=== PATIENT | female | born 1940 | race Caucasian/White ===

== ENCOUNTER 2016-08-04 19:06 | Inpatient (IN) ==
[2016-08-04] MEDS ORDERED: ASPIRIN 325 MG TABLET PO STA (20:24)
[2016-08-04] MEDS ORDERED: ONDANSETRON 4 MG/2 ML VIAL IV STA (20:24)
[2016-08-04] MEDS ORDERED: methylPREDNISolone SOD SUC 125 MG/2 ML VIAL IV STA (20:35)
[2016-08-04] MEDS ORDERED: NITROGLYCERIN 2% OINT 1 INCH/GM PACK TOP STA (20:35)
[2016-08-04] MEDS ORDERED: FUROSEMIDE 100 MG/10 ML VIAL IV STA (20:35)
--- NOTE | 2016-08-04 20:41 | EKG Report ---
Stationary ECG Study [facility] ER Test Date: 08/04/2016 7:35:05 PM Pat Name: NESHA GRAVES Department: Room: Gender: F Spray Technician: Roland : 1940 Requested by: Hayden Mccauley Order Number: [id number] Reading MD: JANAK MCQUEEN Intervals [place] Rate: 72 P: 999 IA: 0 QRS: 40 QRSD: 89 T: -86 QT: 377 QTc: 401 Interpretive Statements ATRIAL FIBRILLATION ELECTRONIC VENTRICULAR PACEMAKER Electronically Signed On 08-08-16 16:14:00 CDT by JANAK MCQUEEN [email or web address]
[2016-08-04 20:47] LABS: Basophils # 0.1 10*3/uL (0.0-0.2); Basophils % 0.3 % (0.0-0.8); Eosinophils # 0.2 10*3/uL (0.0-0.87); Eosinophils % 1.4 % (0.00-10.9); Hematocrit 32.6 VOL% (35.7-47.0); Immature Granulocytes % 0.7 %; Immature Granulocytes Absolute 0.11 #; Lymphocytes # 3.1 10*3/uL (1.4-4.0); Lymphocytes % 18.5 % (21.3-54.2); Mean Corpuscular HGB Conc 29.1 GM/DL (32-36); Mean Corpuscular Hemoglobin 24 PG (27-34); Mean Corpuscular Volume 81.7 FL (87-102); Mean Platelet Volume 11.3 FL (9.6-12.0); Monocytes # 1.3 10*3/uL (0.11-0.8); Monocytes % 7.7 % (1.7-12.7); Neutrophils # 11.9 10*3/uL (1.4-7.4); Neutrophils % 71.4 % (38.7-73.9); Platelet Count 234 T/CUMM (130-400); Red Blood Count 3.99 MC/CUMM (3.8-5.5); Red Cell Distribution Width 18.4 % (9.3-17.3); White Blood Count 16.7 T/CUMM (4-12)
[2016-08-04 20:53] LABS: Hemoglobin 9.7 GM/DL (12.0-16.0); INR 1.4; PT Patient Result 14.6 SECS
[2016-08-04] MEDS ORDERED: ALBUTEROL 2.5 MG/3 ML NEB RESP TX SCH (21:00)
[2016-08-04 21:04] LABS: Troponin I Only < 0.015 NG/ML (0.00-0.045)
[2016-08-04 21:08] LABS: Allen Test Positive
[2016-08-04 21:12] LABS: ABG Base Excess 13.3 MMOL/L (-2.5-2.5); ABG HCO3 37.1 MMOL/L (20-26); ABG Oxygen Saturation 97.2 % (95-100); ABG PCO2 65.1 MM HG (35-48); ABG PH 7.404 (7.35-7.45); ABG TCO2 37.2 MMOL/L (23-27)
--- NOTE | 2016-08-04 21:18 | XRay Report ---
Referring Physician: Hayden Brambila Exam: XR chest 1V portable Date: August 04, 2016 at 8:52 PM Reason: Shortness of breath Comparison: Chest 2 views June 28, 2016 Findings: The cardiac silhouette is again mildly enlarged, and a cardiac pacing device is in place. There is also a large hiatal hernia. Mild scattered hazy opacities are seen within the mid and lower lung zones bilaterally. This could represent pulmonary edema and/or pneumonia. A calcified granuloma is also suspected within the right midlung zone. No pneumothorax is identified. The osseous structures appear stable. Impression: 1. Mild cardiomegaly. 2. Large hiatal hernia. 3. There are mild scattered hazy opacities within the lower mid and lower lung zones, mainly on the right. This could represent pulmonary edema and/or pneumonia. PROCEDURE INTERPRETED AT [facility] DEPARTMENT OF RADIOLOGY Final Report Signed by: Dr. Anderson Dumont
[2016-08-04 21:23] LABS: Alanine Aminotransferase 15 U/L (13-56); Albumin 2.7 G/DL (3.4-5.0); Alkaline Phosphatase 97 U/L (45-117); Aspartate Amino Transferase 12 U/L (0-37); Bilirubin,Total < 0.39 MG/DL (0.2-1.0); Blood Urea Nitrogen 13 MG/DL (7-18); Calcium 8.5 MG/DL (8.5-10.1); Glucose 111 MG/DL (74-106); Osmolality,Calculated 279.4 MOS/KG (273-304); Potassium 3.6 MMOL/L (3.5-5.1); Sodium 140 MMOL/L (136-145); Total Protein 6.4 G/DL (6.4-8.3)
[2016-08-04] MEDS ORDERED: ENOXAPARIN 100 MG/ML SYRINGE SUBCUT STA (21:23)
--- NOTE | 2016-08-04 22:00 | Emergency Department Note ---
Pietro Gray [place], am scribing for, and in the presence of, Hayden Brambila MD 20:09. Patty Gray Charles R, MD, personally performed the services described in this documentation, ascribed by Alek Westbrook in my presence, and it is both accurate and complete . Arrival - Arrival Chief Complaint: Shortness of Breath Stated Complaint: SOB ED Nursing Triage Note: patient to triage with c/o being sent to ED from clinic with c/o left arm pain and edema and SOB. patient was placed on home O2 during her last hospitalization. Mode of Arrival: Wheelchair Limitations: No Limitations Source: Patient Time Seen by Provider: 08/04/16 19:50 - History of Present Illness HPI Narrative: This is a 75 y/o white female presenting to the ED with c/o left arm pain, edema to left arm and left lower leg, and SOB. Pt is currently taking Coumadin, Warfarin, and Lasix. She currently has a pacemaker. She states she injured her left wrist and has had chronic edema but states it has never swelled like it has today. In February of 2016, the pt was dx with two major PE to her lungs and two more occurred within the past two months. She denies nausea, vomiting, diarrhea, abdominal pain, dysuria, chest pain, back pain, cough, and fever. Pt was placed on at home oxygen at her last hospitalization. Pt's INR has been low for the past two weeks. Pt's daughter has been consistent when checking. Consistency: constant Severity: moderate Date of Last Menstrual Period: hyst Allergies/Adverse Reactions: Allergies Allergy/AdvReac Type Severity Reaction Status Date / Time clindamycin AdvReac Intermediate Nausea Verified 08/04/16 19:28 hydrocodone AdvReac Intermediate Flushing Verified 08/04/16 19:28 propoxyphene AdvReac Intermediate Flushing Verified 08/04/16 19:28 Home Medications: Home Medications Medication Instructions Recorded Confirmed Type Metoprolol Tartrate 25 mg PO BID 09/12/14 08/04/16 History Omeprazole [Prilosec] 20 mg PO BID 09/12/14 08/04/16 History Warfarin [Coumadin] 3 mg PO DAILY 09/12/14 08/04/16 History clonazePAM TAB [KlonoPIN] 0.5 mg PO DAILY PRN 09/12/14 08/04/16 History Dronedarone [Multaq] 400 mg PO BID 03/16/15 08/04/16 History Potassium Chloride 20 meq PO DAILY 10/24/15 08/04/16 History Albuterol/Ipratropium Neb [Duoneb] 3 ml RESP TX RT Q4H 05/23/16 08/04/16 Rx guaiFENesin LIQUID [Robitussin] 5 ml PO Q6H PRN #0 05/23/16 08/04/16 Rx Ferrous Sulfate Tab [Feosol 325 mg PO BID #60 tablet 06/14/16 08/04/16 Rx Original Tab] Furosemide 40 mg PO DAILY 06/14/16 08/04/16 History predniSONE TAB [PredniSONE] 10 mg PO DAILY #7 tablet 06/14/16 08/04/16 Rx Glycerin Adult Supp 1 supp RECTAL DAILY PRN 06/21/16 08/04/16 History Doxycycline Hyclate Cap 100 mg PO BID #14 capsule 06/27/16 08/04/16 Rx [Vibramycin Cap] Meperidine Tab [Demerol Tab] 50 mg PO Q6H #10 tablet 06/27/16 08/04/16 Rx Methocarbamol Tab [Robaxin Tab] 750 mg PO BID #10 tablet 06/27/16 08/04/16 Rx Review of System - Review of System 12 point system: reviewed and no additional remarkable complaints except as stated - Review of System Constitutional: Absent: chills, fever, weakness Eyes: Absent: vision change Head/Ears/Nose/Throat: Absent: nasal drainage Respiratory: Absent: cough, wheezing Cardiovascular: Present: dyspnea on exertion, edema (to left arm and left leg ) . Absent: chest pain Gastrointestinal: Absent: abdominal pain, nausea, vomiting, diarrhea, constipation Genitourinary female: Absent: dysuria Musculoskeletal: Absent: arm pain, back pain, leg pain, neck pain Skin: Absent: rash Neurological: Absent: headache, weakness, numbness, confusion, vertigo Psychiatric: Absent: anxiety Endocrine: Absent: fatigue Hematological/Lymphatic: Absent: easy bleeding Allergic/Immunologic: Absent: facial swelling Medical,Surgical,& Family Hx - Medical History Cardio: History of: Cardiac Dysrhythmia (a.fib), Hypertension, Pacemaker (left side) HEENT: Comment Only: Eye Problem (DECREASED VISION) Respiratory: History of: Bronchitis, Pulmonary Embolism (In September 2015), Pneumonia Comment Only: Respiratory Problems (PE) Renal: History of: Renal Failure Gastrointestinal: History of: GERD, Hemorrhoids, GI Problems (tumor--10lbs-jan) Musculoskeletal: History of: Musculoskeletal Problems (Fracture left wrist) Hematology: History of: Anemia No history of: Blood Transfusion Reaction Reproductive: History of: Reproductive Problems (OVARIAN TUMOR REMOVED 2009) - Surgical History Cardiac Surgeries: Sugical HX of: Cardiac Catheterization HEENT Surgeries: Surgical HX of: Tonsilectomy & Adenoidectomy Abdominal Surgeries: Surgical HX of: Abdominal Surgery, Colonoscopy Reproductive Surgeries: Surgical HX of;: Gynecologic Surgery, Hysterectomy Patient denies;: Genitourinary Surgery - Family History Family History: Reports;: Family Heart Disease (father's family, mother-mi), Family Stroke Comment Only: Family Hypertension (father) - Social History Smoking Status: Never smoker Frequency of Alcohol Use: None Type of Drug Use: None Exam Vital Signs: Vital Signs Temperature 98.6 F 08/04/16 19:24 Pulse Rate 72 08/04/16 19:24 Respiratory Rate 28 H 08/04/16 19:24 Blood Pressure 148/78 08/04/16 19:24 O2 Sat by Pulse Oximetry 95 08/04/16 19:24 - General General appearance: alert, in no apparent distress, obese - Head Head exam: Present: atraumatic, normocephalic, normal inspection - Eye Eye exam: Present: normal appearance, PERRL, EOMI - ENT ENT exam: Present: normal exam, normal oropharynx, mucous membranes moist, TM's normal bilaterally, normal external ear exam - Neck Neck exam: Present: normal inspection, full ROM, trachea midline. Absent: tenderness - Chest Chest inspection: Present: normal inspection, symmetric chest wall rise. Absent : tenderness - Respiratory Respiratory exam: Present: rales (to the back side but more on the left than right ), other (decreased breath sounds ) - Cardiovascular Cardiovascular exam: Present: regular rate, normal rhythm, normal heart sounds - Abdominal Exam Abdominal exam: Present: soft, normal bowel sounds. Absent: distention, tenderness - Extremities Exam Extremities exam: Present: full ROM, normal capillary refill, pedal edema (+2 BLE; edema to left arm and left leg; the edema is more in the left leg extending into the calf therefore making the left calf bigger than the right ). Absent: tenderness, calf tenderness - Back Exam Back exam: Present: normal inspection, full ROM. Absent: tenderness - Neurological Exam Neurological exam: Present: alert, oriented X3, CN II-XII intact, normal gait, reflexes normal. Absent: motor sensory deficit - Psychiatric Psychiatric exam: Present: normal affect, normal mood - Skin Skin exam: Present: warm, dry, intact, normal color. Absent: rash, diaphoresis Course - Consultations Consultation #1: Hospitalist will admit patient Time: 00:52 Procedures - Central Line Placement Right Femoral Consent Obtained: verbal consent MD Prep: mask, gown, gloves Central Line Prep: Chlorhexidine scrub Local Anesthetic: lidocaine 1% Amount of anesthesia used (mL): 3.5 Ultrasound Used for Placement: No Central Line Lumen Inserted: triple Post Procedure: sutured in place, good blood return, all ports aspirated, flushed, capped, sterile dressing applied Patient Tolerated Procedure: well, no complications Complications: none Results - Labs CBC & BMP: 08/04/16 20:33 08/04/16 20:33 Lab Results: I have reviewed the patients labs - Diagnostic Findings Procedure: Ultrasound: report reviewed by me (No DVT left upper extremity) Disposition Clinical Impression: Upper respiratory infection, Acute dyspnea, Oxygen desaturation, Overweight, High risk medications (not anticoagulants) long-term use, Debility, Obesity, Generalized weakness, Suspected sleep apnea, Asthma with exacerbation, Pulmonary embolism Case discussed with: patient, patient's family Disposition: Still a Patient Condition: Guarded Time of Disposition: 00:55
[2016-08-04] MEDS ORDERED: FUROSEMIDE 40 MG/4 ML VIAL ONE (23:08)
[2016-08-04] MEDS ORDERED: ONDANSETRON 4 MG/2 ML VIAL ONE (23:08)
[2016-08-04] MEDS ORDERED: ENOXAPARIN 100 MG/ML SYRINGE SUBCUT ONE (23:08)
[2016-08-04] MEDS ORDERED: NITROGLYCERIN 2% OINT 1 INCH/GM PACK TOP ONE (23:08)
[2016-08-04] MEDS ORDERED: methylPREDNISolone SOD SUC 125 MG/2 ML VIAL ONE (23:09)
[2016-08-04] MEDS ORDERED: FUROSEMIDE 20 MG/2 ML VIAL ONE (23:09)
[2016-08-04] MEDS ORDERED: ASPIRIN 325 MG TABLET ONE (23:09)
[2016-08-04] MEDS ORDERED: MORPHINE 2 MG/1 ML SYRINGE ONE (23:10)
[2016-08-05] MEDS ORDERED: MORPHINE 2 MG/1 ML SYRINGE IV STA
[2016-08-05] MEDS ORDERED: cefTRIAXone 1,000 MG in SODIUM CHLORIDE 0.9% 100 ML IV STA (00:05)
[2016-08-05 00:27] LABS: Apearance,Urine CLEAR (Clear); Bacteria,Urine Occasional /HPF (Few); Bilirubin,Urine Negative (Negative); Blood, Urine Negative (Negative); Glucose,Urine (UA) Negative (Negative); Hyaline Casts,Urine 5 /LPF (0-3); Ketones,Urine Negative (Negative); Nitrite,Urine Negative (Negative); Protein,Urine Negative; RBC,Urine 1 /HPF (0-4); Urine Color Yellow (Yellow); Urine Specific Gravity 1.015 (1.001-1.035); Urine Urobilinogen < 2.0 EU/DL (0.2-1.0); WBC,Urine 1 /HPF (0-6)
[2016-08-05] MEDS ORDERED: cefTRIAXone 1,000 MG VIAL ONE (01:20)
--- NOTE | 2016-08-05 01:27 | Hospitalist History & Physical ---
Assessment and Plan (1) Acute dyspnea Status: Acute Current Visit: Yes (2) Obesity Status: Acute Current Visit: Yes (3) Oxygen desaturation Status: Acute Current Visit: Yes (4) Suspected sleep apnea Status: Acute Current Visit: Yes (5) Respiratory failure with hypercapnia Status: Acute Current Visit: No (6) Chronic kidney disease Status: Chronic Current Visit: No (7) Paroxysmal atrial fibrillation Status: Chronic Current Visit: No (8) Pulmonary embolism Status: Chronic Assessment and plan: We will admit patient our service. She will be placed on monitored bed. We need to schedule her some Lasix to offload some fluid recheck x-ray in the morning. Going to get a 2D echo on the patient. Schedule breathing treatments. Low-dose steroids and antibiotics for probable bronchitis. Will consult pulmonary and pulmonary and sleep medicine Current Visit: Yes History of Present Illness Chief complaint: Shortness of breath History of present illness: Ms. Sapp is a 75 year old female with past medical history significant for atrial fibrillation, pacemaker placement, chronic kidney disease, PE and frequent pneumonias who presents to our hospital tonight complaining about shortness of breath and leg and arm swelling. Patient reports that she was recently admitted to the hospital with pneumonia and transferred to swing bed and while in swing bed H her pneumonia came back she had to be transferred back to the hospital. She has been in and out of the hospital several times even after being discharged from the swing bed. Patient is on home O2 around-the- clock. She really gets short of breath with the least exertion. When actually did bring her to the hospital was the arm swelling but it was negative per oral report. I was consulted to admit the patient. Home Medications Medication Instructions Recorded Confirmed Type Metoprolol Tartrate 25 mg PO BID 09/12/14 08/04/16 History Omeprazole [Prilosec] 20 mg PO BID 09/12/14 08/04/16 History Warfarin [Coumadin] 3 mg PO DAILY 09/12/14 08/04/16 History clonazePAM TAB [KlonoPIN] 0.5 mg PO DAILY PRN 09/12/14 08/04/16 History Dronedarone [Multaq] 400 mg PO BID 03/16/15 08/04/16 History Potassium Chloride 20 meq PO DAILY 10/24/15 08/04/16 History Albuterol/Ipratropium Neb [Duoneb] 3 ml RESP TX RT Q4H 05/23/16 08/04/16 Rx guaiFENesin LIQUID [Robitussin] 5 ml PO Q6H PRN #0 05/23/16 08/04/16 Rx Ferrous Sulfate Tab [Feosol 325 mg PO BID #60 tablet 06/14/16 08/04/16 Rx Original Tab] Furosemide 40 mg PO DAILY 06/14/16 08/04/16 History predniSONE TAB [PredniSONE] 10 mg PO DAILY #7 tablet 06/14/16 08/04/16 Rx Glycerin Adult Supp 1 supp RECTAL DAILY PRN 06/21/16 08/04/16 History Doxycycline Hyclate Cap 100 mg PO BID #14 capsule 06/27/16 08/04/16 Rx [Vibramycin Cap] Meperidine Tab [Demerol Tab] 50 mg PO Q6H #10 tablet 06/27/16 08/04/16 Rx Methocarbamol Tab [Robaxin Tab] 750 mg PO BID #10 tablet 06/27/16 08/04/16 Rx Allergies Allergy/AdvReac Type Severity Reaction Status Date / Time clindamycin AdvReac Intermediate Nausea Verified 08/04/16 19:28 hydrocodone AdvReac Intermediate Flushing Verified 08/04/16 19:28 propoxyphene AdvReac Intermediate Flushing Verified 08/04/16 19:28 Medical,Surgical,& Family Hx - Medical History Cardio: History of: Cardiac Dysrhythmia (a.fib), Hypertension, Pacemaker (left side) HEENT: Comment Only: Eye Problem (DECREASED VISION) Respiratory: History of: Bronchitis, Pulmonary Embolism (In September 2015), Pneumonia Comment Only: Respiratory Problems (PE) Renal: History of: Renal Failure Gastrointestinal: History of: GERD, Hemorrhoids, GI Problems (tumor--10lbs-jan) Musculoskeletal: History of: Musculoskeletal Problems (Fracture left wrist) Hematology: History of: Anemia No history of: Blood Transfusion Reaction Reproductive: History of: Reproductive Problems (OVARIAN TUMOR REMOVED 2009) - Surgical History Cardiac Surgeries: Sugical HX of: Cardiac Catheterization HEENT Surgeries: Surgical HX of: Tonsilectomy & Adenoidectomy Abdominal Surgeries: Surgical HX of: Abdominal Surgery, Colonoscopy Reproductive Surgeries: Surgical HX of;: Gynecologic Surgery, Hysterectomy Patient denies;: Genitourinary Surgery - Family History Family History: Reports;: Family Heart Disease (father's family, mother-mi), Family Stroke Comment Only: Family Hypertension (father) - Social History Smoking Status: Never smoker Frequency of Alcohol Use: None Type of Drug Use: None 12 point system: reviewed and no additional remarkable complaints except as stated Exam - Constitutional Vitals: Period Temp Pulse Resp BP Sys/Casey Pulse Ox Last 24 Hr 98.6 F-98.6 F 72-72 28-28 148-148/78-78 95 - General General appearance: alert, in no apparent distress, obese - Head Head exam: Present: atraumatic, normocephalic, normal inspection - Eye Eye exam: Present: normal appearance, PERRL, EOMI - ENT ENT exam: Present: normal exam, normal oropharynx, mucous membranes moist, TM's normal bilaterally, normal external ear exam - Neck Neck exam: Present: normal inspection, full ROM, trachea midline. Absent: tenderness - Chest Chest inspection: Present: normal inspection, symmetric chest wall rise. Absent : tenderness - Respiratory Respiratory exam: Rales in the lower bases - Cardiovascular Cardiovascular exam: Present: regular rate, normal rhythm, normal heart sounds - Abdominal Exam Abdominal exam: Present: soft, normal bowel sounds. Absent: distention, tenderness - Extremities Exam Extremities exam: Patient does have some edema more prominent on the left arm and left leg. - Back Exam Back exam: Present: normal inspection, full ROM. Absent: tenderness - Neurological Exam Neurological exam: Present: alert, oriented X3, CN II-XII intact, normal gait, reflexes normal. Absent: motor sensory deficit - Psychiatric Psychiatric exam: Present: normal affect, normal mood - Skin Skin exam: Present: warm, dry, intact, normal color. Results - Labs CBC & BMP: 08/04/16 20:33 08/04/16 20:33
[2016-08-05] MEDS ORDERED: MORPHINE 2 MG/1 ML SYRINGE IV PRN (01:34)
[2016-08-05] MEDS ORDERED: clonazePAM 0.5 MG TABLET PO PRN (01:46)
[2016-08-05] MEDS ORDERED: guaiFENesin 200 MG/10 ML UDCUP PO PRN (01:46)
[2016-08-05] MEDS ORDERED: WARFARIN 5 MG TABLET PO ONE (01:49)
[2016-08-05] MEDS ORDERED: MEPERIDINE 50 MG TABLET PO PRN (02:00)
[2016-08-05] MEDS: METOPROLOL TARTRATE 25 MG TABLET PO SCH ×2 (02:56→10:45)
[2016-08-05] MEDS: methylPREDNISolone SOD SUC 125 MG/2 ML VIAL IV SCH ×4 (05:22→22:38)
[2016-08-05 06:17] LABS: Basophils % 0.2 % (0.0-0.8); Hematocrit 31.8 VOL% (35.7-47.0); Immature Granulocytes % 0.7 %; Immature Granulocytes Absolute 0.13 #; Lymphocytes # 0.5 10*3/uL (1.4-4.0); Lymphocytes % 2.7 % (21.3-54.2); Mean Corpuscular HGB Conc 28.3 GM/DL (32-36); Mean Corpuscular Hemoglobin 24 PG (27-34); Mean Corpuscular Volume 85.5 FL (87-102); Monocytes # 0.3 10*3/uL (0.11-0.8); Monocytes % 1.4 % (1.7-12.7); Neutrophils # 16.8 10*3/uL (1.4-7.4); Platelet Count 343 T/CUMM (130-400); Red Blood Count 3.72 MC/CUMM (3.8-5.5); Red Cell Distribution Width 18.5 % (9.3-17.3); White Blood Count 17.7 T/CUMM (4-12)
[2016-08-05 06:31] LABS: INR 1.5; PT Patient Result 16.2 SECS
[2016-08-05 06:33] LABS: Hemoglobin 9.1 GM/DL (12.0-16.0)
--- NOTE | 2016-08-05 06:33 | Ultrasound Report ---
US venous doppler UE LT Indication: Swelling, history DVT. Comparison: No relevant comparison. Technique: Grayscale, spectral, and color Doppler interrogation of the left upper extremity veins was performed. Augmentation and compression was performed. Findings: Grayscale, color Doppler, and pulsed Doppler evaluation of the veins of the left upper extremity demonstrates no evidence of deep venous thrombosis. IMPRESSION: No evidence of deep venous thrombosis in the left upper extremity. PROCEDURE INTERPRETED AT [facility] DEPARTMENT OF RADIOLOGY Final Report Signed by: Dr Rocky Cavanaugh
[2016-08-05 06:50] LABS: Albumin 2.4 G/DL (3.4-5.0); Bilirubin,Total 0.6 MG/DL (0.2-1.0); Calcium 8.1 MG/DL (8.5-10.1); Osmolality,Calculated 281.5 MOS/KG (273-304); Potassium 3.2 MMOL/L (3.5-5.1)
--- NOTE | 2016-08-05 06:51 | CT Report ---
CT chest PE study Indication: History of PE, subtherapeutic Coumadin Comparison: Chest CT dated May 15, 2016 Technique: Multiple axial tomographic images of the chest were obtained after the administration of 100 cc Omnipaque 350 intravenous contrast. PE protocol followed. Coronal and sagittal maximum intensity projection images provided. Findings: The pulmonary trunk is somewhat prominent suggestive of pulmonary arterial hypertension. There is weblike opacity within the segmental branch of the posterior/medial right lower lobe in location of previously demonstrated embolus which likely reflects sequela of chronic pulmonary embolism. No new segmental or larger pulmonary embolism demonstrated. Mild cardiomegaly. Cardiac pacemaker apparatus again noted within the left chest. Reflux of contrast material into the IVC consistent with an element of right heart failure. Moderate size hiatal hernia present. Trace left pleural effusion. Mosaic perfusion of the lungs noted. Prominent granulomatous calcification of the right lung. Grossly stable 4 mm right lower lobe nodule compared to study dated October 25, 2015. There is a subcentimeter opacity within a subsegmental bronchus of the anterolateral basal right lower lobe with adjacent bronchiectasis which likely reflects sequela of prior infection. Mild atelectasis of the medial left lower lobe adjacent to hiatal hernia. Visualized upper abdomen demonstrates no acute abnormality. Diffuse osteopenia. Scattered degenerative change. Age-indeterminate compression deformity of T12 vertebral body superiorly with approximate 30% loss of vertebral body height. There is mild posterior protrusion of cortex into the spinal canal with mild spinal canal narrowing. This is new from comparison study dated May 15, 2016. IMPRESSION: The pulmonary trunk is somewhat prominent suggestive of pulmonary arterial hypertension. There is weblike opacity within the segmental branch of the posterior/medial right lower lobe in location of previously demonstrated embolus which likely reflects sequela of chronic pulmonary embolism. No new segmental or larger pulmonary embolism demonstrated. Mild cardiomegaly. Reflux of contrast material into the IVC consistent with an element of right heart failure. Moderate size hiatal hernia present. Trace left pleural effusion. Mosaic perfusion of the lungs noted. This can be seen with air trapping with small airways disease. Grossly stable 4 mm right lower lobe nodule compared to study dated October 25, 2015. There is a subcentimeter opacity within a subsegmental bronchus of the anterolateral basal right lower lobe with adjacent bronchiectasis which likely reflects sequela of prior infection. Consider follow-up CT chest and 3 months to exclude endobronchial neoplasm. Age-indeterminate compression deformity of T12 vertebral body superiorly with approximate 30% loss of vertebral body height. There is mild posterior protrusion of cortex into the spinal canal with mild spinal canal narrowing. This is new from comparison study dated May 15, 2016. Preliminary report was issued by [facility]. The CT exam was performed using one or more of the following dose reduction techniques: Automated exposure control, adjustment of the mA and/or kV according to patient size, or use of iterative reconstruction technique. PROCEDURE INTERPRETED AT [facility] DEPARTMENT OF RADIOLOGY Final Report Signed by: Dr Rocky Cavanaugh
[2016-08-05 06:53] LABS: Lymphocytes 2 % (20-55); Segmented Neutrophils 97 % (50-85); Total Cells Counted 100
[2016-08-05 06:54] LABS: Hypochromasia 1+; Microcytosis 1+
--- NOTE | 2016-08-05 09:07 | Pulmonology Consult Note ---
Assessment and Plan (1) Acute dyspnea Status: Acute Assessment and plan: The patient comes in with some shortness of breath and may have some mild volume overload. She is chronically ill and uses oxygen at home. She seems to be diuresing okay. Current Visit: Yes (2) Paroxysmal atrial fibrillation Status: Chronic Assessment and plan: She has a pacemaker and her heart rate is controlled Current Visit: No (3) Obesity Status: Acute Assessment and plan: The patient is overweight and bedridden basically. Current Visit: Yes (4) Debility Status: Chronic Assessment and plan: The patient is quite debilitated and chronically ill. Current Visit: Yes (5) Hypoventilation syndrome Status: Acute Assessment and plan: The patient came in with a PCO2 of 65 and a normal pH and probably close to her baseline. Current Visit: No (6) Diastolic CHF Status: Acute Assessment and plan: The patient has had some shortness of breath and edema and is diuresing well. Current Visit: No Qualifiers: Congestive heart failure chronicity: acute on chronic Qualified Code(s): I50.33 - Acute on chronic diastolic (congestive) heart failure History of Present Illness Chief complaint: Swelling History of present illness: Ms. Sapp is a 75 year old white female that is very debilitated and chronically ill with obesity along with hypertension and chronic atrial fibrillation. She has had pulmonary emboli in the past and may have some pulmonary hypertension. She does have a pacemaker. She is very overweight and inactive and uses oxygen at home. She says she is cared for at home by family and sits up at times. Otherwise she can do very little activity. She came in because her left arm and leg for swelling. She says she feels a little better now after getting some diuretics. She does not think her breathing is too badly at present. Her chest x-ray and CT does not show anything new. She seems to be stable at present. Home Medications Medication Instructions Recorded Confirmed Type Metoprolol Tartrate 25 mg PO BID 09/12/14 08/04/16 History Omeprazole [Prilosec] 20 mg PO BID 09/12/14 08/04/16 History Warfarin [Coumadin] 3 mg PO DIRECTED 09/12/14 08/05/16 History clonazePAM TAB [KlonoPIN] 0.5 mg PO DAILY PRN 09/12/14 08/04/16 History Dronedarone [Multaq] 400 mg PO BID 03/16/15 08/04/16 History Potassium Chloride 20 meq PO DAILY 10/24/15 08/04/16 History Albuterol/Ipratropium Neb [Duoneb] 3 ml RESP TX RT Q4H 05/23/16 08/04/16 Rx Ferrous Sulfate Tab [Feosol 325 mg PO BID #60 tablet 06/14/16 08/04/16 Rx Original Tab] Furosemide 40 mg PO DAILY 06/14/16 08/04/16 History predniSONE TAB [PredniSONE] 10 mg PO DAILY #7 tablet 06/14/16 08/04/16 Rx Glycerin Adult Supp 1 supp RECTAL DAILY PRN 06/21/16 08/04/16 History Meperidine Tab [Demerol Tab] 50 mg PO Q6H #10 tablet 06/27/16 08/04/16 Rx Warfarin [Coumadin] 1.5 mg PO DIRECTED 08/05/16 08/05/16 History Allergies Allergy/AdvReac Type Severity Reaction Status Date / Time clindamycin AdvReac Intermediate Nausea Verified 08/04/16 19:28 hydrocodone AdvReac Intermediate Flushing Verified 08/04/16 19:28 propoxyphene AdvReac Intermediate [place] Verified 08/04/16 19:28 - Constitutional Constitutional: Present: fatigue, weakness, weight gain. Absent: chills, fever( s) - EENT Eyes: Absent: loss of vision Ears: Absent: decreased hearing Nose, mouth and throat: Absent: dysphagia, headache(s), sinus pressure, sore throat - Cardiovascular Cardiovascular: Present: dyspnea, edema, orthopnea. Absent: chest pain at rest - Respiratory Respiratory: Present: dyspnea. Absent: cough, hemoptysis, wheezing, change in phlegm color - Gastrointestinal Gastrointestinal: Absent: abdominal pain, change in bowel habits, dysphagia, nausea, vomiting - Genitourinary Genitourinary: Absent: difficulty urinating, hematuria, urinary incontinence - Musculoskeletal Musculoskeletal: Present: arthralgias, muscle weakness - Neurological Neurological: Absent: abnormal speech, focal weakness, paresthesias - Psychiatric Psychiatric: Present: depression Exam (Pulmonay) H&P - Constitutional Vitals: Period Temp Pulse Resp BP Sys/Casey Pulse Ox Last 24 Hr 97.3 F-97.9 F 79-98 18-22 120-129/60-65 90-98 Exam: General appearance: no acute distress, over weight, other (She is alert and comfortable sitting up in bed.) - Head Head exam: Present: normal inspection, normocephalic - Eye Eye exam: Present: EOMI. Absent: scleral icterus Pupils: Present: GIGI - ENT ENT exam: Present: normal exam - Neck Neck exam: Present: normal inspection. Absent: lymphadenopathy, thyromegaly - Respiratory Respiratory exam: Present: She has good air movement bilaterally without any definite rales or wheezing. - Cardiovascular Cardiovascular exam: Present: regular rate and rhythm. No loud murmur or gallop rhythm. - GI/Abdominal GI/Abdominal exam: Present: normal bowel sounds, soft. Absent: distended, organomegaly, tenderness - Extremities Exam Extremities exam: Present: Her left arm does have some swelling and her legs are very large without much edema. - Neurological Exam Neurological exam: Present: alert, oriented X3, CN II-XII intact - Psychiatric Psychiatric exam: Present: depressed - Skin Skin exam: Present: warm, dry Medical,Surgical,& Family Hx - Medical History Cardio: History of: Cardiac Dysrhythmia (a.fib), Hypertension, Pacemaker (left side) Psychological: History of: Anxiety Disorders (TAKES KLONOPIN) HEENT: Comment Only: Eye Problem (DECREASED VISION) Respiratory: History of: Bronchitis, Pulmonary Embolism (In September 2015), Pneumonia Comment Only: Respiratory Problems (PE) Renal: History of: Renal Failure Gastrointestinal: History of: GERD, Hemorrhoids, GI Problems (tumor--10lbs-jan) Musculoskeletal: History of: Musculoskeletal Problems (Fracture left wrist) Hematology: History of: Anemia No history of: Blood Transfusion Reaction Reproductive: History of: Reproductive Problems (OVARIAN TUMOR REMOVED 2009) Other: History of: Skin Problems (DRY SKIN) - Surgical History Cardiac Surgeries: Sugical HX of: Cardiac Catheterization, Cardiac Surgery ( PACE MAKER) HEENT Surgeries: Surgical HX of: Tonsilectomy & Adenoidectomy Abdominal Surgeries: Surgical HX of: Abdominal Surgery, Colonoscopy Reproductive Surgeries: Surgical HX of;: Gynecologic Surgery, Hysterectomy Patient denies;: Genitourinary Surgery Orthopedic Surgeries: Surgical HX of;: Implanted Devices (PACE MAKER) - Family History Family History: Reports;: Family Diabetes (PAT GM,PAT AUNT), Family Heart Disease (father's family, mother-mi, FATHER HAD CABG,AUNT (VALVE REPLACE)), Family Hypertension (father), Family Stroke (PAT AUNT X4,PAT UNCLE X2), Additional Family History (AORTIC ANURYSM,) Denies;: Family Anesthesia Reaction, Family Hematology - Social History Smoking Status: Never smoker Frequency of Alcohol Use: None Type of Drug Use: None Results - Labs CBC & BMP: 08/05/16 04:40 08/05/16 04:40 - Diagnostic Findings Procedure: Chest x-ray: image reviewed by me, report reviewed by me (No definite new infiltrates.), CT - chest: image reviewed by me, report reviewed by me (No acute infiltrates or emboli.)
[2016-08-05] MEDS ORDERED: GLYCERIN ADULT SUPP RECTAL PRN (10:21)
[2016-08-05] MEDS: ENOXAPARIN 100 MG/ML SYRINGE SUBCUT SCH ×2 (10:44→22:38)
[2016-08-05] MEDS: POTASSIUM CHLORIDE 20 MEQ TABLET PO SCH (10:44)
[2016-08-05] MEDS: PANTOPRAZOLE 40 MG TABLET PO SCH ×2 (10:45→22:38)
[2016-08-05] MEDS: DRONEDARONE 400 MG TABLET PO SCH ×2 (10:45→22:38)
[2016-08-05] MEDS: FERROUS SULFATE 325 MG TABLET PO SCH ×2 (10:45→22:38)
[2016-08-05] MEDS: METHOCARBAMOL 750 MG TABLET PO SCH ×2 (10:45→22:38)
--- NOTE | 2016-08-05 12:00 | Sleep Medicine Consult ---
Assessment and Plan (1) Unspecified sleep apnea Status: Acute Assessment and plan: Though her symptoms are relatively mild, she has significant comorbidities associated with sleep apnea included home O2 dependence, atrial fibrillation, and diastolic congestive heart failure. I would recommend sleep study evaluation and we will set this up on an outpatient basis. Thank you for this consult and the opportunity to participate in her care. Current Visit: Yes (2) A-fib Status: Chronic Assessment and plan: The prevalence for obstructive sleep apnea in patients with atrial fib can be as high as 80%. Treating the underlying sleep apnea can decrease recurrence by as much is almost 50%. Current Visit: No (3) Congestive heart failure Status: Acute Assessment and plan: Untreated sleep apnea can be an exacerbating factor to CHF, whether diastolic or systolic in origin. Treating the underlying sleep apnea often can improve management of CHF and even potentially decrease readmission right. Current Visit: No History of Present Illness Chief complaint: Sleep apnea History of present illness: Ms. Sapp is a 75 year old female admitted with shortness of breath. There was concern for sleep apnea expressed on her evaluation by the admitting service. Sleep medicine was consulted. She has a history of COPD and chronic kidney disease and is on home O2. She actually had been seen by Dr. Roach in the past with atrial fib and diastolic heart failure and had been referred for sleep clinic consultation on 08/08/2016. She does have a history of snoring and will awaken from sleep short of breath. She denies any significant issues with daytime fatigue or sleepiness. Her [place] sleepiness score is only 4 but she does have a neck circumference of 20 cm. Home Medications Medication Instructions Recorded Confirmed Type Metoprolol Tartrate 25 mg PO BID 09/12/14 08/04/16 History Omeprazole [Prilosec] 20 mg PO BID 09/12/14 08/04/16 History Warfarin [Coumadin] 3 mg PO DIRECTED 09/12/14 08/05/16 History clonazePAM TAB [KlonoPIN] 0.5 mg PO DAILY PRN 09/12/14 08/04/16 History Dronedarone [Multaq] 400 mg PO BID 03/16/15 08/04/16 History Potassium Chloride 20 meq PO DAILY 10/24/15 08/04/16 History Albuterol/Ipratropium Neb [Duoneb] 3 ml RESP TX RT Q4H 05/23/16 08/04/16 Rx Ferrous Sulfate Tab [Feosol 325 mg PO BID #60 tablet 06/14/16 08/04/16 Rx Original Tab] Furosemide 40 mg PO DAILY 06/14/16 08/04/16 History predniSONE TAB [PredniSONE] 10 mg PO DAILY #7 tablet 06/14/16 08/04/16 Rx Glycerin Adult Supp 1 supp RECTAL DAILY PRN 06/21/16 08/04/16 History Meperidine Tab [Demerol Tab] 50 mg PO Q6H #10 tablet 06/27/16 08/04/16 Rx Warfarin [Coumadin] 1.5 mg PO DIRECTED 08/05/16 08/05/16 History Allergies Allergy/AdvReac Type Severity Reaction Status Date / Time clindamycin AdvReac Intermediate Nausea Verified 08/04/16 19:28 hydrocodone AdvReac Intermediate Flushing Verified 08/04/16 19:28 propoxyphene AdvReac Intermediate Flushing Verified 08/04/16 19:28 Review of systems: Notable for nocturia and irregular sleep schedule. Exam (Pulmonay) H&P - Constitutional Vitals: Period Temp Pulse Resp BP Sys/Casey Pulse Ox Last 24 Hr 97.3 F-97.9 F 79-98 18-22 120-129/60-65 90-98 Exam: She is alert and responsive in no acute distress. Pupils equal round reactive to light and accommodation. Extraocular movements intact. Oropharynx with a class IV Mallampati exam. Neck is supple without adenopathy or thyromegaly. No supraclavicular adenopathy is noted. Chest with symmetrical breath sounds without focal wheeze, rhonchi, or rales. Cardiac exam reveals a regular rhythm without murmur or gallop. Abdomen soft nontender without palpable hepatosplenomegaly. Extremities without increased clubbing, cyanosis, or edema. Neurologically, she is grossly intact. She moves all extremities with good strength. Medical,Surgical,& Family Hx - Medical History Cardio: History of: Cardiac Dysrhythmia (a.fib), Hypertension, Pacemaker (left side) Psychological: History of: Anxiety Disorders (TAKES KLONOPIN) HEENT: Comment Only: Eye Problem (DECREASED VISION) Respiratory: History of: Bronchitis, Pulmonary Embolism (In September 2015), Pneumonia Comment Only: Respiratory Problems (PE) Renal: History of: Renal Failure Gastrointestinal: History of: GERD, Hemorrhoids, GI Problems (tumor--10lbs-jan) Musculoskeletal: History of: Musculoskeletal Problems (Fracture left wrist) Hematology: History of: Anemia No history of: Blood Transfusion Reaction Reproductive: History of: Reproductive Problems (OVARIAN TUMOR REMOVED 2009) Other: History of: Skin Problems (DRY SKIN) - Surgical History Cardiac Surgeries: Sugical HX of: Cardiac Catheterization, Cardiac Surgery ( PACE MAKER) HEENT Surgeries: Surgical HX of: Tonsilectomy & Adenoidectomy Abdominal Surgeries: Surgical HX of: Abdominal Surgery, Colonoscopy Reproductive Surgeries: Surgical HX of;: Gynecologic Surgery, Hysterectomy Patient denies;: Genitourinary Surgery Orthopedic Surgeries: Surgical HX of;: Implanted Devices (PACE MAKER) - Family History Family History: Reports;: Family Diabetes (PAT GM,PAT AUNT), Family Heart Disease (father's family, mother-mi, FATHER HAD CABG,AUNT (VALVE REPLACE)), Family Hypertension (father), Family Stroke (PAT AUNT X4,PAT UNCLE X2), Additional Family History (AORTIC ANURYSM,) Denies;: Family Anesthesia Reaction, Family Hematology - Social History Smoking Status: Never smoker Frequency of Alcohol Use: None Type of Drug Use: None Results - Labs CBC & BMP: 08/05/16 04:40 08/05/16 04:40 Lab Results: I have reviewed the past 24 hour labs Labs: I did not see a TSH on this admission. If hypothyroidism has not been excluded with recent evaluation, would recommend that this be done.
--- NOTE | 2016-08-05 16:24 | Hospitalist Progress Note ---
Assessment and Plan - Time spent with patient Time spent with patient: Greater than 30 minutes (1) Acute dyspnea Status: Acute Assessment and plan: Improving with treatment of asthma and diuresis. Current Visit: Yes (2) Pulmonary embolism Status: Chronic Assessment and plan: Continue current management. Current Visit: Yes (3) Diastolic CHF Status: Acute Assessment and plan: Continue current management. Current Visit: No Qualifiers: Congestive heart failure chronicity: acute on chronic Qualified Code(s): I50.33 - Acute on chronic diastolic (congestive) heart failure (4) A-fib Status: Chronic Assessment and plan: Continue current management. Current Visit: No Hospitalist: Subjective Interval history: States she feels better this morning. Exam - Constitutional Vitals: Period Temp Pulse Resp BP Sys/Casey Pulse Ox Last 24 Hr 97.3 F-97.9 F 79-98 18-22 120-129/60-65 90-98 General appearance: normal weight, no acute distress - Head Head exam: Present: normocephalic, atraumatic - Eye Eye exam: Present: EOMI Pupils: Present: GIGI - ENT ENT exam: Present: normal exam - Neck Neck exam: Present: normal inspection - Respiratory Respiratory exam: Present: clear to auscultation bilaterally. Absent: rhonchi, wheezes - Cardiovascular Cardiovascular exam: Present: regular rate and rhythm. Absent: gallop, rubs, systolic murmur - GI/Abdominal GI/Abdominal exam: Present: normal bowel sounds, soft. Absent: distended, firm , guarding, tenderness, rebound - Extremities Exam Extremities exam: Present: normal inspection. Absent: calf tenderness, edema Results - Labs CBC & BMP: 08/05/16 04:40 08/05/16 04:40 Lab Results: I have reviewed the past 24 hour labs Specialty Discharge - Follow Up or Referrals Follow up with: Gayatri Cruz MD [Physician] - 08/17/16 7:15 pm (Sleep Study Lab)
[2016-08-05] MEDS: WARFARIN 3 MG TABLET PO SCH (17:07)
[2016-08-05] MEDS ORDERED: FUROSEMIDE 40 MG/4 ML VIAL IV ONE (17:23)
--- NOTE | 2016-08-05 17:45 | ECHO Report ---
Jacqueline Sapp Exam Date: 08/05/2016 10:45 Referring Physician: Technologist: Isabel Carty Age: 75 Ht (in): 62 Wt (lb): 216 Gender: F Exam Location: [facility] Echo Indications: GILSON, CHF, acute dyspnea, SOB, resp failure, URI, pul embol BP: 120 / 60 HR: 79 Rhythm: Sinus Technical Quality: IMPRESSIONS Technically adequate study 1-2+ left atrial enlargement, with borderline right ventricular enlargement 1+ concentric LVH Normal LV systolic function with ejection fraction is will be 65% without obvious wall motion abnormality Mitral annular calcification 1+ mitral and tricuspid regurgitation with RVSP 42 mmHg plus RAP Pacing wire noted in the right heart MEASUREMENTS (Male / Female) Normal Values 2D ECHO LV Diastolic Diameter PLAX 4.1 cm 4.2 - 5.9 / 3.9 - 5.3 cm LV Systolic Diameter PLAX 2.6 cm LV Fractional Shortening PLAX 35.8 % IVS Diastolic Thickness 1.4 cm 0.6 - 1.0 / 0.6 - 0.9 cm LVPW Diastolic Thickness 1.1 cm 0.6 - 1.0 / 0.6 - 0.9 cm RV Internal Dim ED PLAX 3.2 cm Aortic Root Diameter 2.5 cm LA Systolic Diameter LX 4.4 cm 3.0 - 4.0 / 2.7 - 3.8 cm DOPPLER TR Peak Velocity 324.0 cm/s TR Peak Gradient 42.0 mmHg FINDINGS Left Ventricle Moderately increased septal wall thickness. Mildly increased posterior wall thickness. Mild concentric left ventricular hypertrophy with diastolic dysfunction. Left ventricular ejection fraction is estimated at Right Ventricle Normal right ventricular size. Right Atrium The right atrium is mildly enlarged. Left Atrium Moderately increased left atrial diameter. Mitral Valve Mildly thickened mitral valve with moderate mitral regurgitation. Aortic Valve Aortic valve sclerosis. Tricuspid Valve Morphologically normal tricuspid valve. Moderate tricuspid valve regurgitation. Tricuspid regurgitation velocities suggest a PAP of 42.0 mmHg + RAP. Pulmonic Valve Morphologically normal pulmonic valve. Pericardium No pericardial effusion. Aorta Normal size aortic root and proximal ascending aorta. Dontrell Martell (Electronically Signed) Final Date: 05 Aug 2016 17:44
[2016-08-06] MEDS: ACETAMINOPHEN 325 MG TABLET PO PRN (01:16)
[2016-08-06] MEDS: METOPROLOL TARTRATE 25 MG TABLET PO SCH ×3 (01:17→21:01)
[2016-08-06] MEDS: cefTRIAXone 1,000 MG in SODIUM CHLORIDE 0.9% 100 ML IV SCH (01:18)
[2016-08-06] MEDS: methylPREDNISolone SOD SUC 125 MG/2 ML VIAL IV SCH ×4 (04:17→23:09)
[2016-08-06] MEDS: FERROUS SULFATE 325 MG TABLET PO SCH ×2 (08:18→21:01)
[2016-08-06] MEDS: DRONEDARONE 400 MG TABLET PO SCH ×2 (08:18→21:01)
[2016-08-06] MEDS: POTASSIUM CHLORIDE 20 MEQ TABLET PO SCH (08:18)
[2016-08-06] MEDS: METHOCARBAMOL 750 MG TABLET PO SCH ×2 (08:18→21:01)
[2016-08-06] MEDS: PANTOPRAZOLE 40 MG TABLET PO SCH ×2 (08:19→21:01)
[2016-08-06] MEDS: FUROSEMIDE 40 MG TABLET PO SCH (08:19)
[2016-08-06] MEDS: ENOXAPARIN 100 MG/ML SYRINGE SUBCUT SCH ×2 (08:20→21:00)
[2016-08-06] MEDS: GLYCERIN ADULT SUPP RECTAL SCH (08:21)
[2016-08-06] MEDS ORDERED: FUROSEMIDE 20 MG/2 ML VIAL IV ONE (13:55)
[2016-08-06] MEDS ORDERED: FUROSEMIDE 40 MG/4 ML VIAL ONE (13:58)
--- NOTE | 2016-08-06 15:43 | Hospitalist Progress Note ---
Assessment and Plan - Time spent with patient Time spent with patient: Greater than 30 minutes (1) Acute dyspnea Status: Acute Assessment and plan: Improving with treatment of asthma and diuresis. Current Visit: Yes (2) Pulmonary embolism Status: Chronic Assessment and plan: Continue current management. INR is slightly low. Current Visit: Yes (3) Diastolic CHF Status: Acute Assessment and plan: Continue current management. Current Visit: No Qualifiers: Congestive heart failure chronicity: acute on chronic Qualified Code(s): I50.33 - Acute on chronic diastolic (congestive) heart failure (4) A-fib Status: Chronic Assessment and plan: Continue current management. Current Visit: No Hospitalist: Subjective Interval history: No complaints or overnight events. Exam - Constitutional Vitals: Period Temp Pulse Resp BP Sys/Casey Pulse Ox Last 24 Hr 97.4 F-98.5 F 73-94 18-22 104-118/52-79 92-94 General appearance: no acute distress - Head Head exam: Present: normocephalic, atraumatic - Eye Eye exam: Present: EOMI Pupils: Present: GIGI - ENT ENT exam: Present: normal exam - Neck Neck exam: Present: normal inspection - Respiratory Respiratory exam: Present: clear to auscultation bilaterally. Absent: rhonchi, wheezes - Cardiovascular Cardiovascular exam: Present: regular rate and rhythm. Absent: gallop, rubs, systolic murmur - GI/Abdominal GI/Abdominal exam: Present: normal bowel sounds, soft. Absent: distended, firm , guarding, tenderness, rebound - Extremities Exam Extremities exam: Present: normal inspection, edema (left UE). Absent: calf tenderness Results - Labs CBC & BMP: 08/05/16 04:40 08/05/16 04:40 Lab Results: I have reviewed the past 24 hour labs Specialty Discharge - Follow Up or Referrals Follow up with: Gayatri Cruz MD [Physician] - 08/17/16 7:15 pm (Sleep Study Lab)
--- NOTE | 2016-08-06 16:43 | Ultrasound Report ---
Indication: Lower extremity swelling Duplex scan of the bilateral lower extremity veins Technique: Duplex scan of the bilateral lower extremity veins using B-mode/grayscale imaging and Doppler spectral analysis and color flow Findings: Major venous structures of the bilateral lower extremity demonstrate a normal course and caliber. There is no evidence of deep vein thrombosis. No abnormal intrinsic echogenic lesions are demonstrated in the scanned blood vessels. Veins demonstrate good compressibility with normal color flow study and spectral analysis. Impression: Unremarkable duplex imaging of the bilateral lower extremity veins. No evidence of DVT PROCEDURE INTERPRETED AT [facility] DEPARTMENT OF RADIOLOGY Final Report Signed by: Brett Singleton
--- NOTE | 2016-08-06 17:09 | Pulmonology Progress Note ---
Pulmonary - PN: Subj Interval history: 75-year-old female with a history of PE, hypertension, atrial fibrillation and obesity admitted for acute dyspnea. Today patient admits to improvement in her dyspnea with diuresis. She has no new concerns at this time. Exam (Progress Note) - Constitutional Vitals: Period Temp Pulse Resp BP Sys/Casey Pulse Ox Last 24 Hr 97.4 F-98.2 F 68-94 16-22 104-129/52-79 92-96 General appearance: over weight - Head Head exam: Present: normal inspection - Eye Eye exam: Present: EOMI Pupils: Present: GIGI - Respiratory Respiratory exam: Present: clear to auscultation bilaterally. Absent: rales, rhonchi, wheezes - Cardiovascular Cardiovascular exam: Present: irregular rhythm - GI/Abdominal GI/Abdominal exam: Present: normal bowel sounds, soft. Absent: tenderness - Extremities Exam Extremities exam: Absent: edema - Neurological Exam Neurological exam: Present: alert, oriented X3 - Skin Skin exam: Present: warm, dry Results - Labs CBC & BMP: 08/05/16 04:40 08/05/16 04:40 - Diagnostic Findings Procedure: Ultrasound: report reviewed by me (No DVT bilateral lower extremities ) Assessment and Plan (1) Acute dyspnea Status: Acute Assessment and plan: Appears to be improved with diuresis. Current Visit: Yes (2) Suspected sleep apnea Status: Acute Assessment and plan: Patient will need a sleep study as an outpatient for further evaluation. Suspect she has GILSON and OHS. Current Visit: Yes (3) Obesity Status: Acute Current Visit: Yes Specialty Discharge - Follow Up or Referrals Follow up with: Gayatri Cruz MD [Physician] - 08/17/16 7:15 pm (Sleep Study Lab)
[2016-08-06] MEDS: WARFARIN 3 MG TABLET PO SCH (18:53)
[2016-08-06] MEDS: DESITIN 4OZ/NYSTATIN 15 GRAM MIXTURE PASTE TOP SCH (21:58)
[2016-08-06] MEDS: clonazePAM 0.5 MG TABLET PO PRN (22:30)
[2016-08-06] MEDS ORDERED: predniSONE 20 MG TABLET PO ONE (23:11)
[2016-08-07] MEDS: cefTRIAXone 1,000 MG in SODIUM CHLORIDE 0.9% 100 ML IV SCH (00:57)
[2016-08-07] MEDS ORDERED: CEFDINIR 300 MG CAPSULE PO ONE (01:00)
[2016-08-07] MEDS: methylPREDNISolone SOD SUC 125 MG/2 ML VIAL IV SCH ×4 (05:28→23:58)
[2016-08-07 06:37] LABS: Basophils % 0.1 % (0.0-0.8); Hematocrit 27.5 VOL% (35.7-47.0); Hemoglobin 8.2 GM/DL (12.0-16.0); Immature Granulocytes % 1.2 %; Lymphocytes % 5.9 % (21.3-54.2); Mean Corpuscular HGB Conc 29.8 GM/DL (32-36); Mean Corpuscular Hemoglobin 24 PG (27-34); Mean Corpuscular Volume 81.6 FL (87-102); Mean Platelet Volume 10.8 FL (9.6-12.0); Monocytes # 0.8 10*3/uL (0.11-0.8); Monocytes % 4.8 % (1.7-12.7); Neutrophils # 14.4 10*3/uL (1.4-7.4); Platelet Count 283 T/CUMM (130-400); Red Blood Count 3.37 MC/CUMM (3.8-5.5); Red Cell Distribution Width 18.8 % (9.3-17.3); White Blood Count 16.3 T/CUMM (4-12)
[2016-08-07 07:21] LABS: Calcium 8.2 MG/DL (8.5-10.1); Osmolality,Calculated 283.7 MOS/KG (273-304); Potassium 3.9 MMOL/L (3.5-5.1)
--- NOTE | 2016-08-07 09:22 | Discharge Summary ---
Hospital Course - Hospital Course Hospital Course: Ms. Sapp was admitted for evaluation of shortness of breath. CT of the chest revealed residual clots with no acute process. No evidence of pneumonia. She was initiated on treatment for possible bronchitis. Echocardiogram revealed diastolic dysfunction and patient was diuresed with adequate response. Symptoms improved. Upper and lower ultrasound revealed no evidence of DVTs. Pulmonary and sleep medicine were both consulted and agreed with the plan. Patient's shortness of breath is likely a combination of right heart failure and diastolic dysfunction, residual pulmonary embolism, and obstructive sleep apnea. She was educated on the chronicity of these issues. At discharge she had met maximum benefit of hospitalization. She was encouraged to follow-up with Dr. Roach, Dr. Cruz and her primary care provider. At discharge her Lasix was increased to 40 mg p.o. twice daily. I spent 36 minutes coordinating this discharge. - Time spent with patient Time with patient DS: Greater than 30 minutes Diagnosis - Discharge Diagnosis (1) Acute dyspnea Status: Acute (2) Pulmonary embolism Status: Chronic (3) Diastolic CHF Status: Acute (4) A-fib Status: Chronic Specialty Discharge - Follow Up or Referrals Follow up with: Gayatri Cruz MD [Physician] - 08/17/16 7:15 pm (Sleep Study Lab) Discharge Plan - Discharge Data Disposition: Disch To Home/Self Care Condition at Discharge: Stable Discharge Diet: advance to your usual diet - Discharge Medications New Furosemide Tab [Lasix Tab] 40 mg PO BID #60 tablet Continue Warfarin [Coumadin] 3 mg PO DIRECTED Omeprazole [Prilosec] 20 mg PO BID clonazePAM TAB [KlonoPIN] 0.5 mg PO DAILY PRN PRN Reason: Anxiety Metoprolol Tartrate 25 mg PO BID Dronedarone [Multaq] 400 mg PO BID Potassium Chloride 20 meq PO DAILY Glycerin Adult Supp 1 supp RECTAL DAILY PRN PRN Reason: Constipation Meperidine Tab [Demerol Tab] 50 mg PO Q6H #10 tablet Warfarin [Coumadin] 1.5 mg PO DIRECTED Albuterol/Ipratropium Neb [Duoneb] 3 ml RESP TX RT Q4H Ferrous Sulfate Tab [Feosol Original Tab] 325 mg PO BID #60 tablet predniSONE TAB [PredniSONE] 10 mg PO DAILY #7 tablet - Follow Up or Referral Follow Up: Gayatri Cruz MD [Physician] - 08/17/16 7:15 pm (Sleep Study Lab) - Forms/Instructions Exam - Constitutional Vitals: Period Temp Pulse Resp BP Sys/Casey Pulse Ox Last 24 Hr 96.9 F-98.1 F 59-77 16-22 106-144/50-65 90-96 General appearance: no acute distress, over weight - Head Head exam: Present: normal inspection, normocephalic, atraumatic - Eye Eye exam: Present: EOMI Pupils: Present: GIGI - ENT ENT exam: Present: normal exam - Neck Neck exam: Present: normal inspection - Respiratory Respiratory exam: Present: clear to auscultation bilaterally. Absent: accessory muscle use, prolonged expiratory phase, wheezes - Cardiovascular Cardiovascular exam: Present: irregular rhythm. Absent: bradycardia, systolic murmur, tachycardia - GI/Abdominal GI/Abdominal exam: Present: normal bowel sounds. Absent: ascites, distended, hypoactive bowel sounds, tenderness - Extremities Exam Extremities exam: Present: normal inspection Discharge Results Procedures and tests throughout hospitalization: Pending Orders 08/07/16 08:47 Prothrombin Time Routine Labs on day of discharge: Labs from last 24 hours 08/07/16 08/07/16 06:22 06:22 WBC 16.3 H RBC 3.37 L Hgb 8.2 L Hct 27.5 L MCV 81.6 L MCH 24 L MCHC 29.8 L RDW 18.8 H Plt Count 283 MPV 10.8 Neut % (Auto) 88.0 H Lymph % (Auto) 5.9 L Becker % (Auto) 4.8 Eos % (Auto) 0.0 Baso % (Auto) 0.1 Neut # (Auto) 14.4 H Lymph # (Auto) 1.0 L Becker # (Auto) 0.8 Eos # (Auto) 0.0 Baso # (Auto) 0.0 Immature Gran % 1.2 Nucleated RBC % 0.0 Immature Gran # 0.20 Nucleated RBCs # 0.00 Sodium 138 Potassium 3.9 Chloride 95 L Carbon Dioxide 37 H Anion Gap 9.9 BUN 33 H Creatinine 1.30 H GFR Calculation 46 BUN/Creatinine Ratio 25.00 H Glucose 141 H Calculated Osmolality 283.7 Calcium 8.2 L DS: Provider Date of admission: 08/05/16 01:06 Primary care physician: . No PCP Attending physician on admission: Nithin Harrison MD Consults: 08/05/16 01:34 Consult to Physician [CONS] Routine Comment: Consulting Provider: Aamir Phelps Consult to Specialist Group: Pulmonology When should Consulting Provider be notified: In am Consult to Physician [CONS] Routine Comment: Consulting Provider: Gayatri Cruz When should Consulting Provider be notified: In am Person Notified: KRYSTIN Date Notified: 08/05/16 Time Notified: 08:32 Discharging clinician: Roselyn Mendoza MD Expected date of discharge: 08/07/16
[2016-08-07] MEDS: FERROUS SULFATE 325 MG TABLET PO SCH ×2 (10:44→20:49)
[2016-08-07] MEDS: DRONEDARONE 400 MG TABLET PO SCH ×2 (10:44→20:49)
[2016-08-07] MEDS: POTASSIUM CHLORIDE 20 MEQ TABLET PO SCH (10:44)
[2016-08-07] MEDS: PANTOPRAZOLE 40 MG TABLET PO SCH ×2 (10:46→20:49)
[2016-08-07] MEDS: METOPROLOL TARTRATE 25 MG TABLET PO SCH ×2 (10:46→20:49)
[2016-08-07] MEDS: DESITIN 4OZ/NYSTATIN 15 GRAM MIXTURE PASTE TOP SCH ×2 (10:47→20:49)
[2016-08-07] MEDS: METHOCARBAMOL 750 MG TABLET PO SCH ×2 (10:47→20:48)
[2016-08-07] MEDS: FUROSEMIDE 40 MG TABLET PO SCH (10:47)
[2016-08-07] MEDS: ENOXAPARIN 100 MG/ML SYRINGE SUBCUT SCH ×2 (10:50→20:58)
[2016-08-07] MEDS: GLYCERIN ADULT SUPP RECTAL SCH (10:51)
[2016-08-07 14:34] LABS: INR 2.6
[2016-08-07 14:35] LABS: PT Patient Result 28.8 SECS
--- NOTE | 2016-08-07 18:01 | Event Note ---
I have been asked to come and see this patient because at 1647 this evening patient had a prolonged event of ventricular tachycardia. Informed yesterday she did have 7 beats of ventricular tachycardia too. From what I can gather there were no symptoms with this. Patient is under the care of Dr. Kolb. Patient is to be seen by a physician, so they called me because I am still on duty this evening. Examination: Vital signs: Temperature 98 oxygen saturation 96% heart rate of 67 irregular blood pressure 115/67 respiratory rate of 22 General: patient is an elderly lady in no acute distress HEENT: Normocephalic atraumatic no edema of the face Neck: Supple no lymphadenopathy midline trachea mild JVD Lungs: bilateral basilar rales no wheezing no respiratory distress patient seen in bed and she does acknowledge being short winded with very little exercise Heart: Irregularly irregular heart tones rate less than 100 more than 60 Abdomen: Rotund obese nontender positive bowel sounds Extremities: can move all 4 extremities 3+ edema in the lower extremities there is also some sacral edema Impression/plan: Patient has repeated ventricular tachycardia that are nonsustained. Patient is asymptomatic. I believe the patient can be left on monitored bed for the meantime. Check electrolytes attention be paid to potassium magnesium and calcium. These are low this should be supplemented appropriately by protocol. Patient is not having any shortness of breath at this time forgo doing an ABG. I will get a cardiology consult. Unless this happens again patient can be seen in the morning.
[2016-08-07] MEDS: WARFARIN 3 MG TABLET PO SCH (18:18)
[2016-08-07 19:08] LABS: Calcium 8.2 MG/DL (8.5-10.1); Magnesium 2.3 MG/DL (1.8-2.4); Osmolality,Calculated 284.5 MOS/KG (273-304)
[2016-08-08] MEDS: cefTRIAXone 1,000 MG in SODIUM CHLORIDE 0.9% 100 ML IV SCH (00:01)
[2016-08-08] MEDS: ACETAMINOPHEN 325 MG TABLET PO PRN (02:18)
[2016-08-08] MEDS: clonazePAM 0.5 MG TABLET PO PRN (02:19)
[2016-08-08] MEDS: methylPREDNISolone SOD SUC 125 MG/2 ML VIAL IV SCH ×3 (04:26→15:56)
[2016-08-08] MEDS: DESITIN 4OZ/NYSTATIN 15 GRAM MIXTURE PASTE TOP SCH (08:30)
--- NOTE | 2016-08-08 09:16 | Pulmonology Progress Note ---
Pulmonary - PN: Subj Interval history: Patient is a 75-year-old white lady that is chronically ill with obesity and hypertension and it had previous pulmonary emboli. She has chronic atrial fibrillation with a pacemaker. She had a question of having V. tach although she does have a wide complex rhythm anyway. Cardiology is going to check her. She did not have any symptoms and she says her breathing has been doing okay. She came in with some swelling and that is better. She is not having any chest pain. Overall her breathing seems to be stable Exam (Progress Note) - Constitutional Vitals: Period Temp Pulse Resp BP Sys/Casey Pulse Ox Last 24 Hr 97.3 F-98.5 F 62-75 18-20 117-157/59-70 91-96 Exam: General appearance: no acute distress, over weight, other (She is alert and comfortable sitting up in bed. She is not having any distress now.) - Head Head exam: Present: normal inspection, normocephalic - Eye Eye exam: Present: EOMI. Absent: scleral icterus Pupils: Present: GIGI - ENT ENT exam: Present: normal exam - Neck Neck exam: Present: normal inspection. Absent: lymphadenopathy, thyromegaly - Respiratory Respiratory exam: Present: She has good air movement bilaterally without any definite rales or wheezing. Her lungs still sound reasonably clear. - Cardiovascular Cardiovascular exam: Present: She has a mildly irregular heart rate with no definite gallop. - GI/Abdominal GI/Abdominal exam: Present: normal bowel sounds, soft. Absent: distended, organomegaly, tenderness - Extremities Exam Extremities exam: Present: Her swelling in her extremities is better. - Neurological Exam Neurological exam: Present: alert, oriented X3, CN II-XII intact - Psychiatric Psychiatric exam: Present: depressed - Skin Skin exam: Present: warm, dry Results - Labs CBC & BMP: 08/07/16 06:22 08/07/16 18:18 Assessment and Plan (1) Acute dyspnea Status: Acute Assessment and plan: The patient comes in with some shortness of breath and may have some mild volume overload. She is chronically ill and uses oxygen at home. She seems to be diuresing okay. Overall her breathing has been better. Current Visit: Yes (2) Paroxysmal atrial fibrillation Status: Chronic Assessment and plan: She has a pacemaker and her heart rate is controlled. She has wide complex rhythm with her pacemaker. Her monitor looks like her paced beats although it is hard to see the pacemaker spike. Cardiology is going to check her today. Current Visit: No (3) Obesity Status: Acute Assessment and plan: The patient is overweight and bedridden basically. She is set up for sleep study as an outpatient. Current Visit: Yes (4) Debility Status: Chronic Assessment and plan: The patient is quite debilitated and chronically ill. Current Visit: Yes (5) Hypoventilation syndrome Status: Acute Assessment and plan: The patient came in with a PCO2 of 65 and a normal pH and probably close to her baseline. She is going to be evaluated with a sleep study. Current Visit: No (6) Diastolic CHF Status: Acute Assessment and plan: The patient has had some shortness of breath and edema and is diuresing well. She seems to be better now. Current Visit: No Qualifiers: Congestive heart failure chronicity: acute on chronic Qualified Code(s): I50.33 - Acute on chronic diastolic (congestive) heart failure Specialty Discharge - Follow Up or Referrals Follow up with: Gayatri Cruz MD [Physician] - 08/17/16 7:15 pm (Sleep Study Lab)
[2016-08-08] MEDS: ENOXAPARIN 100 MG/ML SYRINGE SUBCUT SCH (09:40)
[2016-08-08] MEDS: FERROUS SULFATE 325 MG TABLET PO SCH (09:41)
[2016-08-08] MEDS: POTASSIUM CHLORIDE 20 MEQ TABLET PO SCH (09:41)
[2016-08-08] MEDS: PANTOPRAZOLE 40 MG TABLET PO SCH (09:41)
[2016-08-08] MEDS: METOPROLOL TARTRATE 25 MG TABLET PO SCH (09:41)
[2016-08-08] MEDS: METHOCARBAMOL 750 MG TABLET PO SCH (09:41)
[2016-08-08] MEDS: DRONEDARONE 400 MG TABLET PO SCH (09:41)
[2016-08-08] MEDS: FUROSEMIDE 40 MG TABLET PO SCH (09:41)
[2016-08-08] MEDS: GLYCERIN ADULT SUPP RECTAL SCH (09:43)
--- NOTE | 2016-08-08 10:04 | Cardiology Progress Note ---
Cardiology - PN: Subj Interval history: Cardiology note Call for nonsustained VT. Review of telemetry strip shows that this patient has chronic atrial fibrillation and intermittent ventricular pacing. Yesterday she had long runs of ventricular pacing but no VT. The patient has documented diastolic dysfunction. Recent echo showed ejection fraction of 65% with mildly dilated left atrium, aortic valve sclerosis, normal RV function with moderate TR PA pressure around 50 and no effusion. Obstructive sleep apnea suspected. An outpatient sleep study will be scheduled by Dr. Cruz. The patient a history of recurrent pneumonia and is on home O2 at 2 L/min. Chronic hypertension. Status post dual-chamber pacemaker Chronic anticoagulation Chronic atrial fibrillation. Microcytic anemia No history of CA. Patient cannot recall when she had her last nuclear stress test. Lab data today INR 2.6 Sodium 139 potassium 4.0 BUN 30 creatinine 1.20 Magnesium 2.3 glucose 126 Hemoglobin 8.2 hematocrit 27.5 MCV 82 Blood pressure 126/70 O2 sat 96% on 2 L bilateral arcus. Semi-edentulous. Flat neck veins. No carotid bruit. Decreased breath sounds but no wheezing. Irregular rhythm. No murmur. Abdomen obese soft benign. Trace leg edema. The patient lives in [place] with her grandson and her [id number] Plan Discharge is okay with me. Medications as outlined. Telemetry strips show chronic atrial fibrillation with intermittent ventricular pacing. No VT Office visit with Dr. Roach with EKG in 2 weeks Exam (Progress Note) - Constitutional Vitals: Period Temp Pulse Resp BP Sys/Casey Pulse Ox Last 24 Hr 97.3 F-98.5 F 62-75 18-20 117-157/59-70 91-96 Result/EKG - Labs CBC & BMP: 08/07/16 06:22 08/07/16 18:18 Labs: Laboratory Results - last 24 hr 08/07/16 08/07/16 14:15 18:18 INR 2.6 PT Patient/Control Mix 28.8 D Sodium 139 Potassium 4.0 Chloride 96 L Carbon Dioxide 36 H Anion Gap 11.0 BUN 30 H Creatinine 1.20 H GFR Calculation 51 BUN/Creatinine Ratio 25.00 H Glucose 126 H Calculated Osmolality 284.5 Calcium 8.2 L Magnesium 2.3 Specialty Discharge - Follow Up or Referrals Follow up with: Gayatri Cruz MD [Physician] - 08/17/16 7:15 pm (Sleep Study Lab)
--- NOTE | 2016-08-08 11:17 | Hospitalist Progress Note ---
Assessment and Plan - Time spent with patient Time spent with patient: Greater than 30 minutes (1) Acute dyspnea Status: Acute Assessment and plan: discharge medications have been updated. Current Visit: Yes (2) Pulmonary embolism Status: Chronic Assessment and plan: Continue current management. INR is slightly low. Current Visit: Yes (3) Diastolic CHF Status: Acute Assessment and plan: Continue current management. Current Visit: No Qualifiers: Congestive heart failure chronicity: acute on chronic Qualified Code(s): I50.33 - Acute on chronic diastolic (congestive) heart failure (4) A-fib Status: Chronic Assessment and plan: Continue current management. Current Visit: No (5) EKG abnormality Status: Acute Assessment and plan: Evaluated by cardiology; rhythm revealed ventricular pacing and NOT VT. Appreciate Cardiologys assistance. Patient can be safely discharged. Current Visit: Yes Hospitalist: Subjective Interval history: Patient had an episode of wide complexes on her heart rhythm yesterday, discharge was withheld. Exam - Constitutional Vitals: Period Temp Pulse Resp BP Sys/Casey Pulse Ox Last 24 Hr 97.3 F-98.5 F 62-75 18-20 117-157/59-70 91-96 General appearance: no acute distress - Head Head exam: Present: normocephalic, atraumatic - Eye Eye exam: Present: EOMI Pupils: Present: GIGI - ENT ENT exam: Present: normal exam - Neck Neck exam: Present: normal inspection - Respiratory Respiratory exam: Present: clear to auscultation bilaterally. Absent: rhonchi, wheezes - Cardiovascular Cardiovascular exam: Present: regular rate and rhythm. Absent: gallop, rubs, systolic murmur - GI/Abdominal GI/Abdominal exam: Present: normal bowel sounds, soft. Absent: distended, firm , guarding, tenderness, rebound - Extremities Exam Extremities exam: Present: normal inspection. Absent: calf tenderness, edema Results - Labs CBC & BMP: 08/07/16 06:22 08/07/16 18:18 Lab Results: I have reviewed the past 24 hour labs Specialty Discharge - Follow Up or Referrals Follow up with: Clark Roach MD [Physician] - 08/25/16 9:00 am (with ekg) Gayatri Cruz MD [Physician] - 08/17/16 7:15 pm (Sleep Study Lab)
--- NOTE | 2016-08-08 15:09 | Physician Query Form ---
CLICK EDIT DOCUMENT TO SELECT QUERY ANSWER --> OK --> SIGN Selena Gil RN, CCDS Certified Clinical Technical Programs Manager W) [phone] (f) [phone] [email or web address] PROVIDERS: Make your selection(s) from the choices in EACH section by typing an "x" and enter comments in the comment section. Please use your independent medical judgment in providing your response. This request does not imply that any particular answer is desired or expected. CLINICAL INDICATORS: (Providers should not edit this section) "Patient is on home O2 [id number]" admitted and placed on 2 liters per NC. Based on the above, could you clarify the appropriate diagnosis, if significant , that supports the above abnormalities and additional evaluation, monitoring, and/or treatment rendered: ( x) Patient is being monitored or treated for chronic respiratory failure ( ) Patient is not being monitored or treated for chronic respiratory failure ( ) Other, please specify: ( ) Clinically unable to determine COMMENTS: PLEASE ALSO DOCUMENT RESPONSE IN PROGRESS NOTES AND/OR DISCHARGE SUMMARY Use of terms such as suspected, likely, or probable (associated with a specific diagnosis that is being evaluated, monitored, or treated as if it exists) are acceptable and can be restated in the discharge summary if not ruled out. MTDD
[2016-08-08 17:41] VITALS: BP 123/73
== END 2016-08-08 18:55 | disposition home or self-care (01) | DRG 291 ==
LOC: N.ED 19:06 → SUATTDRO 08-05 01:06 → N.EDINP 08-05 01:06 → N.2E 08-05 02:08
PROVIDERS: ADMIT Internal Medicine; ATTEND Internal Medicine

== ENCOUNTER 2016-09-18 06:00 | Inpatient (IN) ==
[2016-09-18] MEDS ORDERED: FUROSEMIDE 100 MG/10 ML VIAL IV STA (06:21)
[2016-09-18] MEDS ORDERED: methylPREDNISolone SOD SUC 125 MG/2 ML VIAL IV STA (06:21)
[2016-09-18] MEDS ORDERED: LEVOFLOXACIN INJ 750 MG in PREMIX 1 EACH IV STA (06:21)
[2016-09-18] MEDS ORDERED: ALBUTEROL/IPRATROPIUM 3 ML NEB RESP TX STA (06:25)
--- NOTE | 2016-09-18 06:28 | Emergency Department Note ---
Arrival - Arrival Chief Complaint: Shortness of Breath ED Nursing Triage Note: C/O Shortness of breath and edema. Onset one week ago. Denies seeking medical attention until today. No respiratory distress noted at time of triage. Mode of Arrival: Stretcher Limitations: No Limitations Source: Patient Time Seen by Provider: 09/18/16 06:21 - History of Present Illness HPI Narrative: This 75-year-old white female with long-standing cardiopulmonary problems presents with complaints of exacerbation shortness of breath associated with increase secretions with a change to yellow in the last 24 hours as well as continuous wheezing. The patient normally has significant dyspnea on exertion but now likewise has dyspnea at rest associated with orthopnea and PND. The patient denies any chest pain, chills, fever, nausea, vomiting, or hemoptysis. The patient is currently on Coumadin for both atrial fibrillation and recent bilateral pulmonary emboli and is compliant with all other medication. 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 Currently she appears in mild medical distress. Onset (ago): day(s) (Patient presents 2 days post onset of symptoms) Date of Last Menstrual Period: PM Allergies/Adverse Reactions: Allergies Allergy/AdvReac Type Severity Reaction Status Date / Time clindamycin AdvReac Intermediate Nausea Verified 08/04/16 19:28 hydrocodone AdvReac Intermediate Flushing Verified 08/04/16 19:28 propoxyphene AdvReac Intermediate Flushing Verified 08/04/16 19:28 Home Medications: Home Medications Medication Instructions Recorded Confirmed Type Metoprolol Tartrate 25 mg PO BID 09/12/14 09/18/16 History Omeprazole [Prilosec] 20 mg PO BID 09/12/14 09/18/16 History Warfarin [Coumadin] 3 mg PO MOWEFRSA 09/12/14 09/18/16 History clonazePAM TAB [KlonoPIN] 0.5 mg PO DAILY PRN 09/12/14 09/18/16 History Dronedarone [Multaq] 400 mg PO BID 03/16/15 09/18/16 History Potassium Chloride 20 meq PO DAILY 10/24/15 09/18/16 History Albuterol/Ipratropium Neb [Duoneb] 3 ml RESP TX RT Q4H 05/23/16 09/18/16 Rx Ferrous Sulfate Tab [Feosol 325 mg PO BID #60 tablet 06/14/16 09/18/16 Rx Original Tab] Meperidine Tab [Demerol Tab] 50 mg PO Q6H #10 tablet 06/27/16 09/18/16 Rx Warfarin [Coumadin] 1.5 mg PO SUTUTH 08/05/16 09/18/16 History Furosemide Tab [Lasix Tab] 40 mg PO BID #60 tablet 08/07/16 09/18/16 Rx Methocarbamol Tab [Robaxin Tab] 750 mg PO TID PRN 09/18/16 09/18/16 History predniSONE TAB [PredniSONE] 5 mg PO DIRECTED 09/18/16 09/18/16 History Review of System - Review of System 12 point system: reviewed and no additional remarkable complaints except as stated - Review of System Constitutional: Present: as per HPI Respiratory: Present: as per HPI Cardiovascular: Present: as per HPI Gastrointestinal: Present: as per HPI Medical,Surgical,& Family Hx - Medical History Cardio: History of: Cardiac Dysrhythmia (a.fib), Hypertension, Pacemaker (left side) Psychological: History of: Anxiety Disorders (TAKES KLONOPIN) HEENT: Comment Only: Eye Problem (DECREASED VISION) Respiratory: History of: Bronchitis, Pulmonary Embolism (In September 2015), Pneumonia Comment Only: Respiratory Problems (PE) Renal: History of: Renal Failure Gastrointestinal: History of: GERD, Hemorrhoids, GI Problems (tumor--10lbs-jan) Musculoskeletal: History of: Musculoskeletal Problems (Fracture left wrist) Hematology: History of: Anemia No history of: Blood Transfusion Reaction Reproductive: History of: Reproductive Problems (OVARIAN TUMOR REMOVED 2009) Other: History of: Skin Problems (DRY SKIN) - Surgical History Cardiac Surgeries: Sugical HX of: Cardiac Catheterization, Cardiac Surgery ( PACE MAKER) HEENT Surgeries: Surgical HX of: Tonsilectomy & Adenoidectomy Abdominal Surgeries: Surgical HX of: Abdominal Surgery, Colonoscopy Reproductive Surgeries: Surgical HX of;: Gynecologic Surgery, Hysterectomy Patient denies;: Genitourinary Surgery Orthopedic Surgeries: Surgical HX of;: Implanted Devices (PACE MAKER) - Family History Family History: Reports;: Family Diabetes (PAT GM,PAT AUNT), Family Heart Disease (father's family, mother-mi, FATHER HAD CABG,AUNT (VALVE REPLACE)), Family Hypertension (father), Family Stroke (PAT AUNT X4,PAT UNCLE X2) Denies;: Family Anesthesia Reaction - Social History Smoking Status: Never smoker Frequency of Alcohol Use: None Type of Drug Use: None Exam Physical Examination: GENERAL: Obese chronically ill appearing elderly white female in mild distress. HEENT: Normocephalic. No trauma. Moist mucous membranes. EOMI. PERRLA. ENT NML NECK: Supple. No adenopathy. CARDIAC: Irregular. No murmurs. Heart rate 69 O2 sat 98% CHEST: Diffuse expiratory wheezes. No respiratory distress. ABDOMEN: Soft. Nontender. Active bowel sounds. EXTREMITIES: No trauma. Normal ROM. 1+ pedal edema. Background of generalized swelling of the left upper and left lower extremity as compared to the right. Patient states this is a chronic problem. SKIN: No diaphoresis. No rash. NEURO: Alert. Oriented 3. Resting tremor with cogwheel rigidity. Motor, sensory, vibratory intact. No focal deficits. Vital Signs: Vital Signs Temperature 98.7 F 09/18/16 06:00 Pulse Rate 70 09/18/16 07:35 Respiratory Rate 16 09/18/16 07:35 Blood Pressure 126/57 09/18/16 07:35 O2 Sat by Pulse Oximetry 98 09/18/16 07:35 Course - Reevaluation(s) Reevaluation #1: Discussed with patient the necessity of hospitalization to stabilize before further progression of exacerbation of COPD and congestive failure occur. - Consultations Consultation #1: Discussed with hospitalist service who will admit for further evaluation treatment. Results - Labs CBC & BMP: 09/18/16 06:14 09/18/16 06:14 Labs: I reviewed the laboratory noted the elevated white blood cell count and B in P as well as hypokalemia. - Impressions EKG reveals atrial fibrillation at [address] changes. No acute injury pattern noted. - Diagnostic Findings Procedure: Chest x-ray: image reviewed by me, report reviewed by me (Stable cardiomegaly with pacemaker noted) Disposition Clinical Impression: Exacerbation COPD, Congestive heart failure, Atrial fibrillation, Recent bilateral pulmonary emboli, Chronic anticoagulation Case discussed with: patient, patient's family Disposition: Still a Patient Condition: Guarded Time of Disposition: 08:25
[2016-09-18] MEDS ORDERED: ALBUTEROL 2.5 MG/3 ML NEB RESP TX SCH (06:30)
[2016-09-18 06:33] LABS: Basophils # 0.1 10*3/uL (0.0-0.2); Basophils % 0.5 % (0.0-0.8); Eosinophils # 0.1 10*3/uL (0.0-0.87); Hematocrit 32.9 VOL% (35.7-47.0); Hemoglobin 9.8 GM/DL (12.0-16.0); Immature Granulocytes % 0.6 %; Immature Granulocytes Absolute 0.07 #; Lymphocytes # 1.1 10*3/uL (1.4-4.0); Lymphocytes % 8.8 % (21.3-54.2); Mean Corpuscular HGB Conc 29.8 GM/DL (32-36); Mean Corpuscular Hemoglobin 26 PG (27-34); Mean Corpuscular Volume 85.9 FL (87-102); Mean Platelet Volume 11.3 FL (9.6-12.0); Monocytes # 0.9 10*3/uL (0.11-0.8); Monocytes % 7.3 % (1.7-12.7); Neutrophils # 10.3 10*3/uL (1.4-7.4); Neutrophils % 81.8 % (38.7-73.9); Platelet Count 201 T/CUMM (130-400); Red Blood Count 3.83 MC/CUMM (3.8-5.5); Red Cell Distribution Width 16.8 % (9.3-17.3); White Blood Count 12.5 T/CUMM (4-12)
[2016-09-18] MEDS ORDERED: TERBUTALINE 1 MG/1 ML VIAL SUBCUT ONE ×2 (06:34→07:27)
[2016-09-18] MEDS ORDERED: FUROSEMIDE 100 MG/10 ML VIAL ONE (06:34)
[2016-09-18] MEDS ORDERED: LEVOFLOXACIN INJ 150 ML IV ONE (06:34)
[2016-09-18] MEDS ORDERED: methylPREDNISolone SOD SUC 125 MG/2 ML VIAL ONE (06:35)
[2016-09-18 06:42] LABS: Partial Thromboplastin Time 22.2 SECS (0-40)
[2016-09-18] MEDS: TERBUTALINE 1 MG/1 ML VIAL SUBCUT SCH ×2 (06:44→07:27)
[2016-09-18 06:48] LABS: PT Patient Result 22.5 SECS
[2016-09-18 06:56] LABS: Hypochromasia 1+; Platelet Estimate Normal
--- NOTE | 2016-09-18 06:56 | EKG Report ---
Stationary ECG Study [facility] Test Date: 09/18/2016 6:13:26 AM Pat Name: NESHA GRAVES Department: Room: Gender: F Appliance Line Assembler: CAROLYN : 1940 Requested by: Art Wilson Order Number: [id number] Reading MD: EBONIE SOLIS Intervals [place] Rate: 69 P: 999 FL: 0 QRS: 93 QRSD: 90 T: 240 QT: 299 QTc: 318 Interpretive Statements ATRIAL FIBRILLATION WITH ABERRANT CONDUCTION OR VENTRICULAR PREMATURE COMPLEXES MODERATE T-WAVE ABNORMALITY, CONSIDER ANTEROLATERAL ISCHEMIA ST DEVIATION AND MODERATE T-WAVE ABNORMALITY, CONSIDER INFERIOR ISCHEMIA Electronically Signed On 09-18-16 10:47:51 CDT by EBONIE SOLIS [email or web address]
[2016-09-18 07:06] LABS: Alanine Aminotransferase 16 U/L (13-56); Albumin 2.6 G/DL (3.4-5.0); Alkaline Phosphatase 106 U/L (45-117); Aspartate Amino Transferase 13 U/L (0-37); Bilirubin,Total < 0.39 MG/DL (0.2-1.0); Blood Urea Nitrogen 15 MG/DL (7-18); Calcium 8.1 MG/DL (8.5-10.1); Glucose 91 MG/DL (74-106); Osmolality,Calculated 281.3 MOS/KG (273-304); Potassium 3.2 MMOL/L (3.5-5.1); Sodium 141 MMOL/L (136-145); Total Protein 6.1 G/DL (6.4-8.3); Troponin I Only < 0.015 NG/ML (0.00-0.045)
[2016-09-18 07:10] LABS: Apearance,Urine CLEAR (Clear); Bilirubin,Urine Negative (Negative); Blood, Urine Negative (Negative); Glucose,Urine (UA) Negative (Negative); Hyaline Casts,Urine 2 /LPF (0-3); Ketones,Urine Negative (Negative); Mucus,Urine Occasional /LPF (Occasional); Nitrite,Urine Negative (Negative); Protein,Urine Negative; RBC,Urine <1 /HPF (0-4); Squamous Epithelial Cell,Urine Occasional /HPF (0-10); Urine Color Yellow (Yellow); Urine Specific Gravity 1.018 (1.001-1.035); Urine Urobilinogen < 2.0 EU/DL (0.2-1.0); WBC,Urine 1 /HPF (0-6)
--- NOTE | 2016-09-18 08:02 | XRay Report ---
XR chest 2V Date: 09/18/2016 6:21 AM History: Shortness of breath Comparison: 08/04/2016 Technique: PA and lateral chest Findings: The heart is minimally enlarged with stable left subclavian atrioventricular permanent pacemaker. The hiatal hernia appears slightly smaller in size with chronic scarring in the lungs. Stable mediastinum with degenerative changes. Impression: Stable cardiomegaly and left subclavian atrioventricular permanent pacemaker. Chronic scarring in the lungs. Hiatal hernia. PROCEDURE INTERPRETED AT [facility] DEPARTMENT OF RADIOLOGY Final Report Signed by: Dr. Shira Bob
[2016-09-18 08:11] LABS: INR 2.1; PT Patient Result 23.7 SECS; Partial Thromboplastin Time 33.3 SECS (0-40)
[2016-09-18 08:12] LABS: D-Dimer <= 0.5 MG/L FEU
[2016-09-18] MEDS ORDERED: ALBUTEROL 2.5 MG/3 ML NEB RESP TX PRN (08:33)
--- NOTE | 2016-09-18 09:45 | Hospitalist History & Physical ---
Addendum entered and electronically signed by Florence Crocker CNP 09/18/16 10 :14: In addition, due to her recent bilateral pulmonary embolism. We will obtain CTA chest. Original Note: <Ashly Crockercarly - Last Filed: 09/18/16 09:43> Assessment and Plan (1) COPD exacerbation Status: Acute Assessment and plan: This is a clear presentation of COPD exacerbation; however the patient reports that she has never been told in the past that she has COPD. Because of the frequency in her exacerbation episodes, her COPD at best is moderately severe. We will start empiric antibiotics, inhaled bronchodilators, and intravenous corticosteroids. Due to the complexity of her disease process, we will consult pulmonology to evaluate and assist during the clinical encounter. Current Visit: Yes (2) Atrial fibrillation with RVR Status: Acute Current Visit: No (3) Congestive heart failure Status: Acute Assessment and plan: In addition, the patient is in mild failure; BNP was noted at 195. Patient states that she has never been informed that she had congestive heart failure although after review of her hospitalizations she has been treated multiple times for this condition. The patient takes routine Lasix twice daily but reports that she has never been told that she has congestive heart failure. She reported that she was taken Lasix for "kidney failure" and because she was holding onto "fluid". There is clearly some knowledge deficit there. She reports that she has never been talked to about fluid restrictions either. We will insert Osuna catheter, gently diurese, and monitor strict intake and output. Current Visit: No (4) Edema of both legs Status: Acute Assessment and plan: The patient has edema noted bilaterally, however edema is more profound in the left leg versus the right. The patient does have a medical history significant for pulmonary embolism and is currently on oral anticoagulant agents. Will obtain bilateral venous Doppler studies to rule out DVT for good measures. Current Visit: Yes (5) Anticoagulant long-term use Status: Acute Assessment and plan: Patient is currently on Coumadin for atrial fibrillation and recent bilateral pulmonary embolisms. Will obtain INR and adjust Coumadin as needed. Current Visit: Yes History of Present Illness Chief complaint: Shortness of breath History of present illness: This is a very interesting 75-year-old female that presented to the ED at [facility] via EMS this morning for evaluation of shortness of breath. Patient has a medical history significant for: Chronic obstructive pulmonary disease, anxiety, hypertension, Parkinson's disease, morbid obesity, pulmonary embolism, atrial fibrillation, congestive heart failure, and esophageal stricture. Patient has a surgical history significant for pacemaker placement, tonsillectomy, adenoidectomy, hysterectomy, cardiac catheterization, and ovarian tumor removal. The patient reported the onset of symptoms two days prior to presentation. She reports that she had an increase in shortness of breath, secretions, and wheezing. Pertinent positives include: productive coughing, wheezing, dyspnea; pertinent negatives include: pever, chest pain, nausea, vomiting, hemoptysis, syncope. Incidentally, the patient was recently discharged from [facility] on April of this year in which she was found to have segmental and global pulmonary embolism. At the time of ED presentation, the patient was assessed. Labs were obtained; CBC reported white blood cell count at 12.5, hemoglobin 9.8, hematocrit 32.9, platelet count 210. Coagulation panel was obtained which reported an INR at 2.1 , PT 23.7, PTT 33.3, and d-dimer<= 0.5. Complete metabolic profile reported sodium 141, potassium at 3.2, chloride 96, carbon dioxide at 39, anion gap at 9.2, BUN of 15, creatinine 1.20, glucose at 91, calcium 8.1, alkaline phosphatase 106, AST 13, and ALT 16. Cardiac enzymes were obtained which reported a troponin at less than 0.015. BNP was noted at 195. Urinalysis was essentially unremarkable. Chest x-ray reported stable cardiomegaly and left subclavian atrioventricular pacemaker placement, chronic scarring in the lungs, and hiatal hernia. After brief discussion with both Dr. Bullock and Dr. Garcia, the patient will be admitted to the hospitalist service for continuation of care. Due to the complexity of her cardiopulmonary disease, we will consult pulmonology and cardiology to evaluate and assist during the clinical encounter. Medications have been reconciled. CODE STATUS has been discussed; the patient is a FULL CODE. Home Medications Medication Instructions Recorded Confirmed Type Metoprolol Tartrate 25 mg PO BID 09/12/14 09/18/16 History Omeprazole [Prilosec] 20 mg PO BID 09/12/14 09/18/16 History Warfarin [Coumadin] 3 mg PO MOWEFRSA 09/12/14 09/18/16 History clonazePAM TAB [KlonoPIN] 0.5 mg PO DAILY PRN 09/12/14 09/18/16 History Dronedarone [Multaq] 400 mg PO BID 03/16/15 09/18/16 History Potassium Chloride 20 meq PO DAILY 10/24/15 09/18/16 History Albuterol/Ipratropium Neb [Duoneb] 3 ml RESP TX RT Q4H 05/23/16 09/18/16 Rx Ferrous Sulfate Tab [Feosol 325 mg PO BID #60 tablet 06/14/16 09/18/16 Rx Original Tab] Meperidine Tab [Demerol Tab] 50 mg PO Q6H #10 tablet 06/27/16 09/18/16 Rx Warfarin [Coumadin] 1.5 mg PO SUTUTH 08/05/16 09/18/16 History Furosemide Tab [Lasix Tab] 40 mg PO BID #60 tablet 08/07/16 09/18/16 Rx Methocarbamol Tab [Robaxin Tab] 750 mg PO TID PRN 09/18/16 09/18/16 History predniSONE TAB [PredniSONE] 5 mg PO DIRECTED 09/18/16 09/18/16 History Allergies Allergy/AdvReac Type Severity Reaction Status Date / Time clindamycin AdvReac Intermediate Nausea Verified 08/04/16 19:28 hydrocodone AdvReac Intermediate Flushing Verified 08/04/16 19:28 propoxyphene AdvReac Intermediate Flushing Verified 08/04/16 19:28 Medical,Surgical,& Family Hx - Medical History Cardio: History of: Cardiac Dysrhythmia (a.fib), Hypertension, Pacemaker (left side) Psychological: History of: Anxiety Disorders (TAKES KLONOPIN) HEENT: Comment Only: Eye Problem (DECREASED VISION) Respiratory: History of: Bronchitis, Pulmonary Embolism (In September 2015), Pneumonia Comment Only: Respiratory Problems (PE) Renal: History of: Renal Failure Gastrointestinal: History of: GERD, Hemorrhoids, GI Problems (tumor--10lbs-jan) Musculoskeletal: History of: Musculoskeletal Problems (Fracture left wrist) Hematology: History of: Anemia No history of: Blood Transfusion Reaction Reproductive: History of: Reproductive Problems (OVARIAN TUMOR REMOVED 2009) Other: History of: Skin Problems (DRY SKIN) - Surgical History Cardiac Surgeries: Sugical HX of: Cardiac Catheterization, Cardiac Surgery ( PACE MAKER) HEENT Surgeries: Surgical HX of: Tonsilectomy & Adenoidectomy Abdominal Surgeries: Surgical HX of: Abdominal Surgery, Colonoscopy Reproductive Surgeries: Surgical HX of;: Gynecologic Surgery, Hysterectomy Patient denies;: Genitourinary Surgery Orthopedic Surgeries: Surgical HX of;: Implanted Devices (PACE MAKER) - Family History Family History: Reports;: Family Diabetes (PAT GM,PAT AUNT), Family Heart Disease (father's family, mother-mi, FATHER HAD CABG,AUNT (VALVE REPLACE)), Family Hypertension (father), Family Stroke (PAT AUNT X4,PAT UNCLE X2) Denies;: Family Anesthesia Reaction - Social History Smoking Status: Never smoker Frequency of Alcohol Use: None Type of Drug Use: None 12 point system: reviewed and no additional remarkable complaints except as stated Exam - Constitutional Vitals: Period Temp Pulse Resp BP Sys/Casey Pulse Ox Last 24 Hr 98.7 F-98.7 F 69-90 16-24 119-134/42-68 94-100 General appearance: mild distress, morbidly obese - Head Head exam: Present: normal inspection, normocephalic, atraumatic - Eye Eye exam: Present: EOMI. Absent: conjunctival injection Pupils: Present: GIGI, normal accommodation - ENT ENT exam: Present: normal exam, normal external ear exam, normal oropharynx - Neck Neck exam: Present: normal inspection. Absent: lymphadenopathy, meningismus, tenderness, thyromegaly - Respiratory Respiratory exam: Present: accessory muscle use, wheezes - Cardiovascular Cardiovascular exam: Present: irregular rhythm (Atrial fibrillation) - GI/Abdominal GI/Abdominal exam: Present: normal bowel sounds, soft, other (Obese) - Extremities Exam Extremities exam: Present: edema (+3 pitting edema noted to left leg +2 pitting edema noted to right leg), other (Generalized weakness) - Back Exam Back exam: Present: normal inspection - Neurological Exam Neurological exam: Present: alert, oriented X3, CN II-XII intact - Psychiatric Psychiatric exam: Present: anxious - Skin Skin exam: Present: normal color, warm, dry Results - Labs CBC & BMP: 09/18/16 06:14 09/18/16 06:14 Lab Results: I have reviewed the past 24 hour labs <Odessa Garcia - Last Filed: 09/18/16 14:23> History of Present Illness History of present illness: Patient seen and examined independently of [employer] [facility], agree with history, assessment and plan as documented except as noted. 75 y/o WF presents with shortness of breath and increased LE edema. On exam patient is noted to have bilateral wheezing. It is noted that patient does not have COPD but does possibly have asthma. As well as a component of hypoventilation obesity syndrome. She does have a chronic increase in her bicarb. For now will continue duonebs, steroids and abx with supplemental oxygen. She reports undergoing a sleep study 2-3 weeks ago, she does not know the results yet. Will consult Dr. Cruz while inpatient. Pulmonary also assisting. Patient also with known diastolic heart failure, agree with IV lasix. Exam - Constitutional Vitals: Period Temp Pulse Resp BP Sys/Casey Pulse Ox Last 24 Hr 98.0 F-98.7 F 69-90 16-24 119-140/42-68 94-100 Results - Labs CBC & BMP: 09/18/16 06:14 09/18/16 06:14
[2016-09-18] MEDS ORDERED: FUROSEMIDE 40 MG TABLET PO SCH (10:30)
[2016-09-18] MEDS: PANTOPRAZOLE 40 MG TABLET PO SCH ×2 (12:11→20:09)
[2016-09-18] MEDS: METOPROLOL TARTRATE 25 MG TABLET PO SCH ×2 (12:11→20:09)
[2016-09-18] MEDS: POTASSIUM CHLORIDE 20 MEQ TABLET PO SCH (12:11)
[2016-09-18] MEDS: DRONEDARONE 400 MG TABLET PO SCH ×2 (12:11→20:09)
[2016-09-18] MEDS: FERROUS SULFATE 325 MG TABLET PO SCH ×2 (12:11→20:09)
--- NOTE | 2016-09-18 12:24 | Ultrasound Report ---
Exam: Bilateral lower extremity venous Doppler ultrasound Comparison: 08/06/2016 Clinical history: Leg edema Technique: Duplex scan of the lower extremity veins using B-mode/grayscale scaled imaging and Doppler spectral analysis and color flow. Findings: Major venous structures of the lower extremities demonstrate a normal course and caliber. Normal color-flow study and spectral analysis. There is normal compression and augmentation of bilateral common femoral, superficial femoral and popliteal veins. The proximal bilateral greater saphenous veins appear to be patent. Impression: No evidence to suggest deep venous thrombosis within either lower extremity. Evidence of leg edema. Ultrasound images were captured and stored. PROCEDURE INTERPRETED AT [facility] DEPARTMENT OF RADIOLOGY Final Report Signed by: Dr. Shira Bob
--- NOTE | 2016-09-18 12:26 | Ultrasound Report ---
Exam: Bilateral upper extremity venous Doppler ultrasound Comparison: 08/16/2016 Clinical history: Arm edema Technique: Duplex scan of the upper extremity veins using B-mode/grayscale scaled imaging and Doppler spectral analysis and color flow. Findings: Major venous structures of the upper extremities demonstrate a normal course and caliber. Normal color-flow study and spectral analysis. There is normal compression and augmentation of the visualized veins. No filling defects are identified in the bilateral internal jugular, subclavian, axillary, basilic, brachial, cephalic, radial, and ulnar veins. Impression: No evidence to suggest venous thrombosis within either upper extremity. Ultrasound images were captured and stored. PROCEDURE INTERPRETED AT [facility] DEPARTMENT OF RADIOLOGY Final Report Signed by: Dr. Shira Bob
--- NOTE | 2016-09-18 12:39 | Pulmonology Consult Note ---
Assessment and Plan (1) Generalized anxiety disorder Status: Chronic Assessment and plan: The patient does have a lot of anxiety problems and gets short of breath when she gets anxious. Current Visit: No (2) Obesity Status: Acute Assessment and plan: The patient is very overweight and inactive. Current Visit: No (3) Diastolic CHF Status: Acute Assessment and plan: The patient does have considerable fluid retention and is diuresing fairly well now. Current Visit: No Qualifiers: Congestive heart failure chronicity: acute on chronic Qualified Code(s): I50.33 - Acute on chronic diastolic (congestive) heart failure (4) Acute respiratory failure with hypoxia Status: Acute Assessment and plan: Patient comes in with respiratory distress and hypoxemia but she is comfortable at present. Current Visit: No (5) Asthma with exacerbation Status: Acute Assessment and plan: The patient may have some mild obstructive airways disease but I do not think she has COPD. She is in part restricted because of her size. She does have a heart failure at times. She may have some bronchospasm when she has bronchitis. She is not really wheezing that much now. We will continue bronchodilator therapy. Current Visit: No (6) Unspecified sleep apnea Status: Acute Assessment and plan: I think she has oxygen at home but does not use CPAP Current Visit: No History of Present Illness Chief complaint: Shortness of breath History of present illness: Ms. Sapp is a 75 year old white female that comes in fairly frequently. She is overweight with hypertension cardiovascular disease and history of atrial fibrillation. She has a history of having pulmonary emboli in the past and she is anticoagulated. She is a lifetime non-smoker. She states that she started having shortness of breath Holland night and yesterday was worse. She does feel like she is coughing and wheezing and retaining fluid. She has a lot of swelling in her extremities. She is not complaining of any chest pain. She has not had any fever. She is comfortable on low-flow oxygen. She does have some wheezing but this is mainly related to the extra fluid. She could have some mild asthmatic bronchitis but does not have COPD. She is overweight and has arthritis and Parkinson's disease. Home Medications Medication Instructions Recorded Confirmed Type Metoprolol Tartrate 25 mg PO BID 09/12/14 09/18/16 History Omeprazole [Prilosec] 20 mg PO BID 09/12/14 09/18/16 History Warfarin [Coumadin] 3 mg PO MOWEFRSA 09/12/14 09/18/16 History clonazePAM TAB [KlonoPIN] 0.5 mg PO DAILY PRN 09/12/14 09/18/16 History Dronedarone [Multaq] 400 mg PO BID 03/16/15 09/18/16 History Potassium Chloride 20 meq PO DAILY 10/24/15 09/18/16 History Albuterol/Ipratropium Neb [Duoneb] 3 ml RESP TX RT Q4H 05/23/16 09/18/16 Rx Ferrous Sulfate Tab [Feosol 325 mg PO BID #60 tablet 06/14/16 09/18/16 Rx Original Tab] Meperidine Tab [Demerol Tab] 50 mg PO Q6H #10 tablet 06/27/16 09/18/16 Rx Warfarin [Coumadin] 1.5 mg PO SUTUTH 08/05/16 09/18/16 History Furosemide Tab [Lasix Tab] 40 mg PO BID #60 tablet 08/07/16 09/18/16 Rx Methocarbamol Tab [Robaxin Tab] 750 mg PO TID PRN 09/18/16 09/18/16 History predniSONE TAB [PredniSONE] 5 mg PO DIRECTED 09/18/16 09/18/16 History Allergies Allergy/AdvReac Type Severity Reaction Status Date / Time clindamycin AdvReac Intermediate Nausea Verified 08/04/16 19:28 hydrocodone AdvReac Intermediate Flushing Verified 08/04/16 19:28 propoxyphene AdvReac Intermediate Flushing Verified 08/04/16 19:28 - Constitutional Constitutional: Present: fatigue, weight gain. Absent: chills, fever(s) - EENT Eyes: Absent: loss of vision Ears: Absent: decreased hearing Nose, mouth and throat: Absent: dysphagia, headache(s), sinus pressure - Cardiovascular Cardiovascular: Present: chest pain at rest, dyspnea, edema, orthopnea. Absent : palpitations - Respiratory Respiratory: Present: cough, dyspnea, wheezing. Absent: hemoptysis, pain on inspiration, change in phlegm color - Gastrointestinal Gastrointestinal: Absent: abdominal pain, change in bowel habits, dysphagia, heartburn, nausea - Genitourinary Genitourinary: Present: urinary frequency. Absent: dysuria, hematuria - Musculoskeletal Musculoskeletal: Present: arthralgias, back pain, muscle weakness - Neurological Neurological: Absent: abnormal speech, focal weakness, paresthesias - Psychiatric Psychiatric: Present: anxiety Exam (Pulmonay) H&P - Constitutional Vitals: Period Temp Pulse Resp BP Sys/Casey Pulse Ox Last 24 Hr 98.0 F-98.7 F 69-90 16-24 119-140/42-68 94-100 General appearance: no acute distress (She looks comfortable on low-flow oxygen. ), morbidly obese - Head Head exam: Present: normal inspection, normocephalic - Eye Eye exam: Present: EOMI. Absent: scleral icterus Pupils: Present: GIGI - ENT ENT exam: Present: normal exam - Neck Neck exam: Present: normal inspection. Absent: lymphadenopathy, thyromegaly - Respiratory Respiratory exam: Present: decreased breath sounds, rales, rhonchi, other ( Patient has fairly good air movement with some mild crackles in the bases and rhonchi.) - Cardiovascular Cardiovascular exam: Present: irregular rhythm. Absent: gallop, JVD, systolic murmur - GI/Abdominal GI/Abdominal exam: Present: normal bowel sounds, soft. Absent: organomegaly, tenderness - Extremities Exam Extremities exam: Present: calf tenderness, edema (She does have edema in the extremities) - Neurological Exam Neurological exam: Present: alert, oriented X3, CN II-XII intact - Psychiatric Psychiatric exam: Present: anxious - Skin Skin exam: Present: warm, dry Medical,Surgical,& Family Hx - Medical History Cardio: History of: Cardiac Dysrhythmia (a.fib), Hypertension, Pacemaker (left side) Psychological: History of: Anxiety Disorders (TAKES KLONOPIN) HEENT: Comment Only: Eye Problem (DECREASED VISION) Respiratory: History of: Bronchitis, Pulmonary Embolism (In September 2015), Pneumonia Comment Only: Respiratory Problems (PE) Renal: History of: Renal Failure Gastrointestinal: History of: GERD, Hemorrhoids, GI Problems (tumor--10lbs-jan) Musculoskeletal: History of: Musculoskeletal Problems (Fracture left wrist) Hematology: History of: Anemia No history of: Blood Transfusion Reaction Reproductive: History of: Reproductive Problems (OVARIAN TUMOR REMOVED 2009) Other: History of: Skin Problems (DRY SKIN) - Surgical History Cardiac Surgeries: Sugical HX of: Cardiac Catheterization, Cardiac Surgery ( PACE MAKER) HEENT Surgeries: Surgical HX of: Tonsilectomy & Adenoidectomy Abdominal Surgeries: Surgical HX of: Abdominal Surgery, Colonoscopy Reproductive Surgeries: Surgical HX of;: Gynecologic Surgery, Hysterectomy Patient denies;: Genitourinary Surgery Orthopedic Surgeries: Surgical HX of;: Implanted Devices (PACE MAKER) - Family History Family History: Reports;: Family Diabetes (PAT GM,PAT AUNT), Family Heart Disease (father's family, mother-mi, FATHER HAD CABG,AUNT (VALVE REPLACE)), Family Hypertension (father), Family Stroke (PAT AUNT X4,PAT UNCLE X2) Denies;: Family Anesthesia Reaction - Social History Smoking Status: Never smoker Frequency of Alcohol Use: None Type of Drug Use: None Results - Labs CBC & BMP: 09/18/16 06:14 09/18/16 06:14 Labs: Her INR is 2.1. - Diagnostic Findings Procedure: Chest x-ray: image reviewed by me, report reviewed by me (Chest x- ray shows cardiomegaly and slight increased markings in the bases.), Ultrasound : report reviewed by me (Dopplers of the extremities are negative for clots.) Quality Measures - Stroke Symptom Onset Unknown: No
--- NOTE | 2016-09-18 13:41 | Nuclear Medicine Report ---
Exam: Lung scan ventilation/perfusion Date: 09/19/2015 Comparison: 04/16/2016 Reason: Shortness of breath, history of pulmonary embolus Technique:30 mCi of technetium 99m DTPA aerosolized was inhaled with injection of 5 mCi of technetium 99m MAA . Ventilation and perfusion images of both lungs were acquired. Limited three-view scans obtained. Findings: Progressive trapping centrally in the lungs with progressive ventilation defects in both lungs. The perfusion defects appear less prominent with no unmatched defects. Impression: Limited low probability lung scan. PROCEDURE INTERPRETED AT [facility] DEPARTMENT OF RADIOLOGY Final Report Signed by: Dr. Shira Bob
[2016-09-18] MEDS: ALBUTEROL/IPRATROPIUM 3 ML NEB RESP TX SCH ×2 (13:59→19:13)
[2016-09-18] MEDS: FUROSEMIDE 40 MG/4 ML VIAL IV SCH (17:21)
[2016-09-18] MEDS: WARFARIN 3 MG TABLET PO SCH (17:21)
[2016-09-18] MEDS: GLYCERIN ADULT SUPP RECTAL PRN (20:10)
[2016-09-19] MEDS: ALBUTEROL/IPRATROPIUM 3 ML NEB RESP TX SCH ×4 (00:19→19:34)
[2016-09-19] MEDS: ACETAMINOPHEN 325 MG TABLET PO PRN ×2 (00:43→23:59)
[2016-09-19] MEDS: clonazePAM 0.5 MG TABLET PO PRN (00:43)
[2016-09-19] MEDS: LEVOFLOXACIN INJ 750 MG in PREMIX 1 EACH IV SCH (06:02)
[2016-09-19 07:26] LABS: Basophils % 0.1 % (0.0-0.8); Hematocrit 27.9 VOL% (35.7-47.0); Hemoglobin 8.7 GM/DL (12.0-16.0); Immature Granulocytes % 1.1 %; Immature Granulocytes Absolute 0.13 #; Lymphocytes # 0.9 10*3/uL (1.4-4.0); Lymphocytes % 7.7 % (21.3-54.2); Mean Corpuscular HGB Conc 31.2 GM/DL (32-36); Mean Corpuscular Hemoglobin 26 PG (27-34); Mean Corpuscular Volume 82.8 FL (87-102); Monocytes # 0.9 10*3/uL (0.11-0.8); Monocytes % 7.2 % (1.7-12.7); Neutrophils % 83.9 % (38.7-73.9); Platelet Count 203 T/CUMM (130-400); Red Blood Count 3.37 MC/CUMM (3.8-5.5); Red Cell Distribution Width 17.2 % (9.3-17.3); White Blood Count 11.9 T/CUMM (4-12)
[2016-09-19 07:51] LABS: Albumin 2.2 G/DL (3.4-5.0); Bilirubin,Total 0.4 MG/DL (0.2-1.0); Calcium 8.4 MG/DL (8.5-10.1); Osmolality,Calculated 283.4 MOS/KG (273-304); Potassium 3.5 MMOL/L (3.5-5.1); Total Protein 5.4 G/DL (6.4-8.3)
[2016-09-19] MEDS: FUROSEMIDE 40 MG/4 ML VIAL IV SCH ×2 (08:11→15:25)
[2016-09-19] MEDS: POTASSIUM CHLORIDE 20 MEQ TABLET PO SCH (08:11)
[2016-09-19] MEDS: FERROUS SULFATE 325 MG TABLET PO SCH ×2 (08:11→20:45)
[2016-09-19] MEDS: PANTOPRAZOLE 40 MG TABLET PO SCH ×2 (08:12→20:46)
[2016-09-19] MEDS: DRONEDARONE 400 MG TABLET PO SCH ×2 (08:12→20:46)
[2016-09-19] MEDS: METOPROLOL TARTRATE 25 MG TABLET PO SCH (08:12)
--- NOTE | 2016-09-19 08:47 | Pulmonology Progress Note ---
Pulmonary - PN: Subj Interval history: Patient is a 75-year-old white lady that comes in feeling badly with shortness of breath along with some chest congestion. She has been having a lot of edema. She has multiple chronic problems. She says she still short of breath today but may be a little better. She has some hoarseness and coughing but not much sputum. She is not having any chest pain at present. She says she did feel like she got rid of some fluid last night. Otherwise she is about the same. Exam (Progress Note) - Constitutional Vitals: Period Temp Pulse Resp BP Sys/Casey Pulse Ox Last 24 Hr 97.6 F-98.2 F 70-87 16-22 101-144/47-68 93-100 Exam: General appearance: no acute distress (She looks comfortable on low-flow oxygen. She does sound a little hoarse but is in no distress.), morbidly obese - Head Head exam: Present: normal inspection, normocephalic - Eye Eye exam: Present: EOMI. Absent: scleral icterus Pupils: Present: GIGI - ENT ENT exam: Present: She has some hoarseness but no redness or exudate - Neck Neck exam: Present: normal inspection. Absent: lymphadenopathy, thyromegaly - Respiratory Respiratory exam: Present: She has fairly good breath sounds bilaterally with minimal rhonchi. - Cardiovascular Cardiovascular exam: Present: irregular rhythm. Absent: gallop, JVD, systolic murmur - GI/Abdominal GI/Abdominal exam: Present: normal bowel sounds, soft. Absent: organomegaly, tenderness - Extremities Exam Extremities exam: Present: calf tenderness, edema (She does have edema in the extremities. Leg swelling is a little better) - Neurological Exam Neurological exam: Present: alert, oriented X3, CN II-XII intact - Psychiatric Psychiatric exam: Present: anxious - Skin Skin exam: Present: warm, dry Results - Labs CBC & BMP: 09/19/16 06:52 09/19/16 06:58 Assessment and Plan (1) Generalized anxiety disorder Status: Chronic Assessment and plan: The patient does have a lot of anxiety problems and gets short of breath when she gets anxious. She looks about the same today. Current Visit: No (2) Obesity Status: Acute Assessment and plan: The patient is very overweight and inactive. Current Visit: No (3) Diastolic CHF Status: Acute Assessment and plan: The patient does have considerable fluid retention and is diuresing fairly well now. Her breathing seems to be stable at present. Current Visit: No Qualifiers: Congestive heart failure chronicity: acute on chronic Qualified Code(s): I50.33 - Acute on chronic diastolic (congestive) heart failure (4) Acute respiratory failure with hypoxia Status: Acute Assessment and plan: Patient comes in with respiratory distress and hypoxemia but she is comfortable at present. She looks like she is breathing a little better today. Current Visit: No (5) Asthma with exacerbation Status: Acute Assessment and plan: The patient may have some mild obstructive airways disease but I do not think she has COPD. She is in part restricted because of her size. She does have a heart failure at times. She may have some bronchospasm when she has bronchitis. She is not really wheezing that much now. She is moving air well today with only minimal rhonchi. She is getting her bronchodilator therapy. Current Visit: No (6) Unspecified sleep apnea Status: Acute Assessment and plan: I think she has oxygen at home but does not use CPAP Current Visit: No
[2016-09-19] MEDS: NEBIVOLOL 5 MG TABLET PO SCH (09:24)
--- NOTE | 2016-09-19 09:24 | XRay Report ---
History: Shortness of breath Date: 09/19/2016 Study: Chest x-ray AP portable Comparison exam: 09/18/2016 There is continued cardiomegaly. The mediastinal contour is unchanged. There is mild to moderate aortic arch calcification. The pulmonary vasculature is not grossly engorged. There is some stable strandy scarring in the right infrahilar region. There is mild platelike scar or subsegmental atelectasis in the left lung base as before. There is no obvious new or worsening infiltrate. There is a suspected hiatal hernia. A left subclavian transvenous pacemaker is unchanged. Osseous structures are similar. Impression: No gross overall change from the previous study PROCEDURE INTERPRETED AT [facility] DEPARTMENT OF RADIOLOGY Final Report Signed by: Dr. Angelica Hitchcock
--- NOTE | 2016-09-19 09:42 | Cardiology Consult Note ---
Leno Gray April RN, am scribing for, and in the presence of, Sparkle Bustamante MD 09:37. Assessment and Plan - Time spent with patient Time spent with patient: Greater than 30 minutes (Assessment, planning, documentation, medication review) (1) Anticoagulant long-term use Status: Chronic Current Visit: Yes (2) COPD exacerbation Status: Acute Current Visit: Yes (3) Edema of both legs Status: Chronic Current Visit: Yes (4) Acute dyspnea Status: Acute Current Visit: Yes (5) A-fib Status: Chronic Current Visit: Yes History of Present Illness - Data of Consult Patient: known to practice within the last 3 years Consult date: 09/18/16 Requesting Physician: Odessa Garcia - Consult Narrative Reason for consult: SOB and atrial fibrillation History of present illness: Esthetician/Skin Therapist: Dr. Roach Ms. Sapp is a 75 year old female who is routinely followed by Dr. Roach with a history of paroxysmal atrial fibrillation, chronic diastolic heart failure, Parkinson's disease, morbid obesity, pulmonary embolism, esophageal stricture, suspected sleep apnea, and hypertension. Surgical history includes pacemaker, abdominal surgery, and hysterectomy. Family history includes heart disease in mother and father and hypertension in father. She reports a lifetime non-smoker. I have seen her in the remote past before she transitioned care to Dr. Roach. She reports she was using oxygen intermittently up until about 2 months ago, since then she now requires it continuously. Monday she experienced more severe shortness of breath and she felt as though she would pass out. She said Monday morning her O2 sats were in the low 80s up to 91. She continued to have feelings of near syncope. She denies having any chest pain, tachypalpitations. She does report a cough. Also complains of edema, being worse on the left than the right, which is chronic for her. She had a limited low probability lung scan. Venous Doppler negative for DVT of upper or lower extremities. EKG on admission is officially interpreted as atrial fibrillation , however it is actually a very regular narrow complex rhythm with a lot of baseline artifact and may represent sinus rhythm. Telemetry shows sinus rhythm. She is anticoagulated on warfarin, INR 2.1 yesterday. She is on Lasix 40 mg IV twice daily. She has also been started on IV antibiotics. She is currently resting in bed no acute distress. Oxygen via nasal cannula and she is short of breath. She denies any chest pain or palpitations. She denies any syncope or feelings of near syncope at this time. loss control representative currently shows atrial fibrillation with heart rates in the 70s. She has been diuresing well with negative I's and O's. Assessment and plan: 1. Anticoagulant long-term use for both atrial fibrillation and recent pulmonary embolism. 2. COPD exacerbation-lung exam is consistent with this. I am going to change her metoprolol to Bystolic and evaluate her wheezing on the more selective agent. 3. Bilateral lower extremity asymmetrical edema-this is a chronic finding. There may be an element of cor pulmonale which contributes that she did have right-sided chamber enlargement on her more recent echocardiogram. She is described as having congestive heart failure, however her BNP is less than 400 which would be nonspecific for heart failure. She has normal systolic function and no significant valvular heart disease. She is currently in sinus rhythm and not having any arrhythmias that would contribute to heart failure. 4. Shortness of breath-this is multifactorial including COPD exacerbation, deconditioning, chronic anemia. 5. Atrial fibrillation-this is paroxysmal and appears to be currently rhythm controlled, she is on chronic anticoagulation. 6. Microcytic anemia-we will follow her hemoglobin levels. CC: Odessa Garcia MD - Home Medications and Allergies Home Medications: Home Medications Medication Instructions Recorded Confirmed Type Metoprolol Tartrate 25 mg PO BID 09/12/14 09/18/16 History Omeprazole [Prilosec] 20 mg PO BID 09/12/14 09/18/16 History Warfarin [Coumadin] 3 mg PO MOWEFRSA 09/12/14 09/18/16 History clonazePAM TAB [KlonoPIN] 0.5 mg PO DAILY PRN 09/12/14 09/18/16 History Dronedarone [Multaq] 400 mg PO BID 03/16/15 09/18/16 History Potassium Chloride 20 meq PO DAILY 10/24/15 09/18/16 History Albuterol/Ipratropium Neb [Duoneb] 3 ml RESP TX RT Q4H 05/23/16 09/18/16 Rx Ferrous Sulfate Tab [Feosol 325 mg PO BID #60 tablet 06/14/16 09/18/16 Rx Original Tab] Meperidine Tab [Demerol Tab] 50 mg PO Q6H #10 tablet 06/27/16 09/18/16 Rx Warfarin [Coumadin] 1.5 mg PO SUTUTH 08/05/16 09/18/16 History Furosemide Tab [Lasix Tab] 40 mg PO BID #60 tablet 08/07/16 09/18/16 Rx Methocarbamol Tab [Robaxin Tab] 750 mg PO TID PRN 09/18/16 09/18/16 History predniSONE TAB [PredniSONE] 5 mg PO DIRECTED 09/18/16 09/18/16 History Allergies/Adverse Reactions: Allergies Allergy/AdvReac Type Severity Reaction Status Date / Time clindamycin AdvReac Intermediate Nausea Verified 08/04/16 19:28 hydrocodone AdvReac Intermediate Flushing Verified 08/04/16 19:28 propoxyphene AdvReac Intermediate Flushing Verified 08/04/16 19:28 - Constitutional Constitutional: Present: as per HPI - EENT Eyes: Present: loss of vision Nose, mouth and throat: Present: hoarseness. Absent: epistaxis, headache(s), neck pain - Cardiovascular Cardiovascular: Present: dyspnea, dyspnea on exertion, edema, lightheadedness, orthopnea. Absent: chest pain at rest, chest pain with activity, radiating jaw , neck or arm pain, palpitations - Respiratory Respiratory: Present: cough, dyspnea, dyspnea on exertion. Absent: hemoptysis - Gastrointestinal Gastrointestinal: Present: nausea. Absent: abdominal pain, constipation, diarrhea, hematemesis, hematochezia, melena, vomiting - Genitourinary Genitourinary: Absent: dysuria, hematuria - Musculoskeletal Musculoskeletal: Present: limited range of motion, muscle weakness - Neurological Neurological: Present: abnormal gait, other (Feelings of near syncope). Absent : confusion, headache(s), syncope - Psychiatric Psychiatric: Present: depression. Absent: anxiety, confusion - Endocrine Endocrine: Present: fatigue - Hematologic/Lymphatic Hematologic/Lymphatic: Present: easy bruising. Absent: easy bleeding Medical,Surgical,& Family Hx - Medical History Cardio: History of: Cardiac Dysrhythmia (a.fib), Hypertension, Pacemaker (left side) Psychological: History of: Anxiety Disorders (TAKES KLONOPIN) HEENT: Comment Only: Eye Problem (DECREASED VISION) Respiratory: History of: Bronchitis, Pulmonary Embolism (In September 2015), Pneumonia, Respiratory Problems (PE) Renal: History of: Renal Failure Gastrointestinal: History of: GERD, Hemorrhoids, GI Problems (tumor--10lbs-jan) Musculoskeletal: History of: Musculoskeletal Problems (Fracture left wrist) Hematology: History of: Anemia Reproductive: History of: Reproductive Problems (OVARIAN TUMOR REMOVED 2009) Other: History of: Skin Problems (DRY SKIN) - Surgical History Cardiac Surgeries: Sugical HX of: Cardiac Catheterization, Internal Defibrillator (Pacemaker) HEENT Surgeries: Surgical HX of: Tonsilectomy & Adenoidectomy Abdominal Surgeries: Surgical HX of: Abdominal Surgery, Colonoscopy Reproductive Surgeries: Surgical HX of;: Gynecologic Surgery, Hysterectomy - Family History Family History: Reports;: Family Diabetes (PAT GM,PAT AUNT), Family Heart Disease (father's family, mother-mi, FATHER HAD CABG,AUNT (VALVE REPLACE)), Family Hypertension (father), Family Stroke (PAT AUNT X4,PAT UNCLE X2) - Social History Smoking Status: Never smoker Frequency of Alcohol Use: None Type of Drug Use: None Physical Examination Vital Signs Temp Pulse Resp BP Pulse Ox 98.7 F 70 18 125/42 98 09/18/16 06:00 09/18/16 06:00 09/18/16 06:00 09/18/16 06:00 09/18/16 06:00 General: Present: Appears Well, No Apparent Distress, Other (Obese, which limits exam) HEENT: Present: PERRL, Mucus Membranes Moist Neck: Present: Supple Neck, Midline Trachea, No Bruit Cardiac: Present: Irregularly Regular, Other (Distant heart tones due to habitus ). Absent: Tachycardia Lungs: Present: Wheezes (Prolonged expiratory wheeze), Oxygen (Via nasal cannula ), No Rales, No Rhonchi Neuro: Absent: Resting Tremor, Essential Tremor Abdomen: Present: Soft, Active Bowel Sounds, No Masses, Non-Tender. Absent: Distended Skin: Absent: Rash, Suspicious Lesions Extremities: Present: Edema (To left extremity), +1 Edema (Right lower extremity ), +2 Edema (Left lower extremity). Absent: Normal Gait Result/EKG - Labs CBC & BMP: 09/19/16 06:52 09/19/16 06:58 Lab Results: I have reviewed the past 24 hour labs Labs: Laboratory Results - last 24 hr 09/19/16 09/19/16 06:52 06:58 WBC 11.9 RBC 3.37 L Hgb 8.7 L Hct 27.9 L MCV 82.8 L MCH 26 L MCHC 31.2 L RDW 17.2 Plt Count 203 MPV 13.0 H Neut % (Auto) 83.9 H Lymph % (Auto) 7.7 L [place] % (Auto) 7.2 Eos % (Auto) 0.0 Baso % (Auto) 0.1 Neut # (Auto) 10.0 H Lymph # (Auto) 0.9 L [place] # (Auto) 0.9 H Eos # (Auto) 0.0 Baso # (Auto) 0.0 Immature Gran % 1.1 Nucleated RBC % 0.0 Immature Gran # 0.13 Nucleated RBCs # 0.00 Sodium 140 Potassium 3.5 Chloride 95 L Carbon Dioxide 39 H Anion Gap 9.5 BUN 20 H Creatinine 1.40 H GFR Calculation 43 BUN/Creatinine Ratio 14.00 Glucose 132 H Calculated Osmolality 283.4 Calcium 8.4 L Total Bilirubin 0.40 AST 11 ALT 13 Alkaline Phosphatase 85 Total Protein 5.4 L Albumin 2.2 L Globulin 3.2 Albumin/Globulin Ratio 0.6 L - Diagnostic Findings Procedure: Chest x-ray: report reviewed by me - EKG EKG results: interpreted by me (Narrow complex regular rhythm with baseline artifact obscuring interpretation) Quality Measures - Stroke Symptom Onset Unknown: No I, Sparkle Bustamante MD, personally performed the services described in this documentation, ascribed by Anne Burr RN in my presence, and it is both accurate and complete .
--- NOTE | 2016-09-19 10:56 | Hospitalist Progress Note ---
Assessment and Plan (1) Chronic kidney disease Status: Chronic Current Visit: No (2) Generalized anxiety disorder Status: Chronic Current Visit: No (3) Suspected sleep apnea Status: Acute Assessment and plan: Recent sleep study per patient, does not know results Sleep medicine consulted Current Visit: No (4) Diastolic CHF Status: Acute Assessment and plan: Lasix 40 IV BID Current Visit: No Qualifiers: Congestive heart failure chronicity: acute on chronic Qualified Code(s): I50.33 - Acute on chronic diastolic (congestive) heart failure (5) Asthma with exacerbation Status: Acute Assessment and plan: Continue duonebs, steroids, antibiotics, supplemental oxygen Current Visit: No (6) Anticoagulant long-term use Status: Chronic Current Visit: Yes Hospitalist: Subjective Interval history: No acute events overnight. Patient reports that her breathing feels a little worse today. She's ok with lying down but has mccarty with the slightest movement. Exam - Constitutional Vitals: Period Temp Pulse Resp BP Sys/Casey Pulse Ox Last 24 Hr 97.6 F-98.2 F 70-87 18-22 101-144/47-66 93-99 General appearance: over weight - Head Head exam: Present: normocephalic, atraumatic - Eye Eye exam: Present: EOMI Pupils: Present: GIGI - ENT ENT exam: Present: normal exam - Neck Neck exam: Present: normal inspection - Respiratory Respiratory exam: Present: wheezes - Cardiovascular Cardiovascular exam: Present: regular rate and rhythm - GI/Abdominal GI/Abdominal exam: Present: normal bowel sounds, soft. Absent: tenderness, rebound - Extremities Exam Extremities exam: Present: normal inspection - Back Exam Back exam: Present: normal inspection - Neurological Exam Neurological exam: Present: alert, oriented X3 - Psychiatric Psychiatric exam: Present: normal affect, normal mood - Skin Skin exam: Present: warm, intact Results - Labs CBC & BMP: 09/19/16 06:52 09/19/16 06:58 Quality Measures - Stroke Symptom Onset Unknown: No
[2016-09-19] MEDS: methylPREDNISolone SOD SUC 40 MG/1 ML VIAL IV SCH ×2 (12:31→18:31)
[2016-09-19] MEDS ORDERED: VANCOMYCIN INJ 1,500 MG in SODIUM CHLORIDE 0.9% 250 ML IV SCH (15:00)
--- NOTE | 2016-09-19 16:19 | Sleep Medicine Consult ---
Assessment and Plan (1) Suspected sleep apnea Status: Acute Assessment and plan: This patient has undergone sleep study recently and did not have significant sleep apnea. She had a normal apnea popping index of 0.2 while on supplemental oxygen at 2 L/min. O2 sats were as low as 77% without her supplemental O2. No further sleep evaluation is needed at this time. Thank you for this consult. Current Visit: No History of Present Illness Chief complaint: ? Sleep apnea History of present illness: Ms. Sapp is a 75 year old female was recently seen in hospital consultation by me and set up for sleep study evaluation. Her polysomnography did not reveal significant sleep apnea. She has been on nocturnal O2 therapy at 2 L/ min. We tried starting her sleep study without oxygen but her O2 sats were in the 70s at 77% while awake. We therefore did the sleep study on her prescribed O2 at 2 L/min and with supplemental oxygen, she did not have significant sleep apnea, having a normal apnea popping index of less than 1. She maintained normal O2 sats with supplemental oxygen. No further intervention was felt needed from sleep medicine and she was set up just to discuss her sleep study findings and has not had that opportunity as of yet. I took care of this today and we will not need to see her in follow-up. She already has O2 ordered previously at home at 2 L/min. Home Medications Medication Instructions Recorded Confirmed Type Metoprolol Tartrate 25 mg PO BID 09/12/14 09/18/16 History Omeprazole [Prilosec] 20 mg PO BID 09/12/14 09/18/16 History Warfarin [Coumadin] 3 mg PO MOWEFRSA 09/12/14 09/18/16 History clonazePAM TAB [KlonoPIN] 0.5 mg PO DAILY PRN 09/12/14 09/18/16 History Dronedarone [Multaq] 400 mg PO BID 03/16/15 09/18/16 History Potassium Chloride 20 meq PO DAILY 10/24/15 09/18/16 History Albuterol/Ipratropium Neb [Duoneb] 3 ml RESP TX RT Q4H 05/23/16 09/18/16 Rx Ferrous Sulfate Tab [Feosol 325 mg PO BID #60 tablet 06/14/16 09/18/16 Rx Original Tab] Meperidine Tab [Demerol Tab] 50 mg PO Q6H #10 tablet 04/03/17 06/25/17 Rx Warfarin [Coumadin] 1.5 mg PO SUTUTH 08/05/16 09/18/16 History Furosemide Tab [Lasix Tab] 40 mg PO BID #60 tablet 08/07/16 09/18/16 Rx Methocarbamol Tab [Robaxin Tab] 750 mg PO TID PRN 09/18/16 09/18/16 History predniSONE TAB [PredniSONE] 5 mg PO DIRECTED 09/18/16 09/18/16 History Allergies Allergy/AdvReac Type Severity Reaction Status Date / Time clindamycin AdvReac Intermediate Nausea Verified 08/04/16 19:28 hydrocodone AdvReac Intermediate Flushing Verified 08/04/16 19:28 propoxyphene AdvReac Intermediate Flushing Verified 08/04/16 19:28 Review of systems: Otherwise unremarkable from a sleep medicine standpoint. Exam (Pulmonay) H&P - Constitutional Vitals: Period Temp Pulse Resp BP Sys/Casey Pulse Ox Last 24 Hr 97.6 F-98.2 F 70-82 18-22 101-144/47-63 94-99 Exam: Alert and responsive. She answers questions appropriately. Pupils equal round reactive to light and accommodation. Extraocular movements intact. Oropharynx with a class III Mallampati exam. Neck supple without adenopathy. No supraclavicular adenopathy is noted. Chest with symmetrical breath sounds with mild wheezes bilaterally. Cardiac exam reveals a regular rhythm without murmur or gallop. Abdomen obese nontender without palpable hepatosplenomegaly or mass. Extremities without increased edema. Medical,Surgical,& Family Hx - Medical History Cardio: History of: Cardiac Dysrhythmia (a.fib), Hypertension, Pacemaker (left side) Psychological: History of: Anxiety Disorders (TAKES KLONOPIN) HEENT: Comment Only: Eye Problem (DECREASED VISION) Respiratory: History of: Bronchitis, Pulmonary Embolism (In September 2015), Pneumonia, Respiratory Problems (PE) Renal: History of: Renal Failure Gastrointestinal: History of: GERD, Hemorrhoids, GI Problems (tumor--10lbs-jan) Musculoskeletal: History of: Musculoskeletal Problems (Fracture left wrist) Hematology: History of: Anemia No history of: Blood Transfusion Reaction Reproductive: History of: Reproductive Problems (OVARIAN TUMOR REMOVED 2009) Other: History of: Skin Problems (DRY SKIN) - Surgical History Cardiac Surgeries: Sugical HX of: Cardiac Catheterization, Cardiac Surgery ( PACE MAKER), Internal Defibrillator (Pacemaker) HEENT Surgeries: Surgical HX of: Tonsilectomy & Adenoidectomy Abdominal Surgeries: Surgical HX of: Abdominal Surgery, Colonoscopy Reproductive Surgeries: Surgical HX of;: Gynecologic Surgery, Hysterectomy Patient denies;: Genitourinary Surgery Orthopedic Surgeries: Surgical HX of;: Implanted Devices (PACE MAKER) - Family History Family History: Reports;: Family Diabetes (PAT GM,PAT AUNT), Family Heart Disease (father's family, mother-mi, FATHER HAD CABG,AUNT (VALVE REPLACE)), Family Hypertension (father), Family Stroke (PAT AUNT X4,PAT UNCLE X2) Denies;: Family Anesthesia Reaction - Social History Smoking Status: Never smoker Frequency of Alcohol Use: None Type of Drug Use: None Results - Labs CBC & BMP: 09/19/16 06:52 09/19/16 06:58 Lab Results: I have reviewed the past 24 hour labs Quality Measures - Stroke Symptom Onset Unknown: No
[2016-09-19] MEDS ORDERED: VANCOMYCIN INJ 1,500 MG in SODIUM CHLORIDE 0.9% 500 ML IV SCH (16:30)
[2016-09-19] MEDS: WARFARIN 3 MG TABLET PO SCH (18:31)
[2016-09-19] MEDS: GLYCERIN ADULT SUPP RECTAL PRN (20:46)
[2016-09-20] MEDS: ALBUTEROL/IPRATROPIUM 3 ML NEB RESP TX SCH ×4 (00:17→19:42)
[2016-09-20] MEDS: methylPREDNISolone SOD SUC 40 MG/1 ML VIAL IV SCH ×4 (00:44→18:37)
[2016-09-20 06:38] LABS: Hematocrit 29.2 VOL% (35.7-47.0); Hemoglobin 8.8 GM/DL (12.0-16.0); Immature Granulocytes Absolute 0.13 #; Lymphocytes # 0.7 10*3/uL (1.4-4.0); Lymphocytes % 5.4 % (21.3-54.2); Mean Corpuscular HGB Conc 30.1 GM/DL (32-36); Mean Corpuscular Hemoglobin 25 PG (27-34); Mean Corpuscular Volume 83.9 FL (87-102); Mean Platelet Volume 11.3 FL (9.6-12.0); Monocytes # 0.4 10*3/uL (0.11-0.8); Monocytes % 3.4 % (1.7-12.7); Neutrophils # 11.5 10*3/uL (1.4-7.4); Neutrophils % 90.2 % (38.7-73.9); Platelet Count 307 T/CUMM (130-400); Red Blood Count 3.48 MC/CUMM (3.8-5.5); Red Cell Distribution Width 16.8 % (9.3-17.3); White Blood Count 12.7 T/CUMM (4-12)
[2016-09-20] MEDS: LEVOFLOXACIN INJ 750 MG in PREMIX 1 EACH IV SCH (06:50)
[2016-09-20 07:11] LABS: Calcium 8.7 MG/DL (8.5-10.1); Osmolality,Calculated 289.1 MOS/KG (273-304); Potassium 3.7 MMOL/L (3.5-5.1)
[2016-09-20] MEDS: FUROSEMIDE 40 MG/4 ML VIAL IV SCH ×2 (09:20→15:58)
[2016-09-20] MEDS: PANTOPRAZOLE 40 MG TABLET PO SCH ×2 (09:21→20:52)
[2016-09-20] MEDS: POTASSIUM CHLORIDE 20 MEQ TABLET PO SCH (09:21)
[2016-09-20] MEDS: FERROUS SULFATE 325 MG TABLET PO SCH ×2 (09:21→20:52)
[2016-09-20] MEDS: NEBIVOLOL 5 MG TABLET PO SCH (09:21)
[2016-09-20] MEDS: VANCOMYCIN INJ 1,500 MG in SODIUM CHLORIDE 0.9% 500 ML IV SCH ×2 (09:25→20:47)
--- NOTE | 2016-09-20 10:31 | Hospitalist Progress Note ---
Assessment and Plan (1) Chronic kidney disease Status: Chronic Current Visit: No (2) Generalized anxiety disorder Status: Chronic Current Visit: No (3) Suspected sleep apnea Status: Acute Assessment and plan: No significant sleep apnea per recent sleep study. Thanks for the evaluation. Current Visit: No (4) Diastolic CHF Status: Acute Assessment and plan: Lasix 40 IV BID Current Visit: No Qualifiers: Congestive heart failure chronicity: acute on chronic Qualified Code(s): I50.33 - Acute on chronic diastolic (congestive) heart failure (5) Asthma with exacerbation Status: Acute Assessment and plan: Continue duonebs, steroids, antibiotics, supplemental oxygen Pulmonary managing Current Visit: No (6) Anticoagulant long-term use Status: Chronic Current Visit: Yes (7) Microcytic anemia Status: Acute Assessment and plan: H/H is at her baseline per chart review Will obtain Iron studies Current Visit: Yes Hospitalist: Subjective Interval history: No acute events overnight. Patient still reports breathing difficulty. Reports return of a tremor due to stopping metoprolol. Patient has blood cultures growing both gram positive rods and gram positive cocci, possibly contaminant. Repeating and started vancomycin Exam - Constitutional Vitals: Period Temp Pulse Resp BP Sys/Casey Pulse Ox Last 24 Hr 96.6 F-98.2 F 71-82 16-22 98-146/55-71 93-99 General appearance: over weight - Head Head exam: Present: normocephalic, atraumatic - Eye Eye exam: Present: EOMI Pupils: Present: GIGI - ENT ENT exam: Present: normal exam - Neck Neck exam: Present: normal inspection - Respiratory Respiratory exam: Present: wheezes, other (coarse breath sounds) - Cardiovascular Cardiovascular exam: Present: regular rate and rhythm - GI/Abdominal GI/Abdominal exam: Present: normal bowel sounds, soft. Absent: tenderness, rebound - Extremities Exam Extremities exam: Present: normal inspection - Back Exam Back exam: Present: normal inspection - Neurological Exam Neurological exam: Present: alert, oriented X3 - Psychiatric Psychiatric exam: Present: normal affect, normal mood - Skin Skin exam: Present: warm, intact Results - Labs CBC & BMP: 09/20/16 06:21 09/20/16 06:21 Quality Measures - Stroke Symptom Onset Unknown: No
[2016-09-20] MEDS: DRONEDARONE 400 MG TABLET PO SCH ×2 (11:47→20:52)
--- NOTE | 2016-09-20 12:46 | Pulmonology Progress Note ---
Pulmonary - PN: Subj Interval history: Patient is a 75-year-old white lady that comes in feeling badly with shortness of breath along with some chest congestion. She has been having a lot of edema. She has multiple chronic problems. She says she still has some coughing and a little bit of congestion. Her shortness of breath may be a little better. She has been diuresing fairly well. She has positive blood cultures that are being repeated. Overall she seemed reasonably stable. Exam (Progress Note) - Constitutional Vitals: Period Temp Pulse Resp BP Sys/Casey Pulse Ox Last 24 Hr 96.6 F-98.2 F 72-106 16-20 98-147/55-82 93-99 Exam: General appearance: no acute distress (She looks comfortable on low-flow oxygen. She looks like she is breathing better today.), morbidly obese - Head Head exam: Present: normal inspection, normocephalic - Eye Eye exam: Present: EOMI. Absent: scleral icterus Pupils: Present: GIGI - ENT ENT exam: Present: She has some hoarseness but no redness or exudate - Neck Neck exam: Present: normal inspection. Absent: lymphadenopathy, thyromegaly - Respiratory Respiratory exam: Present: She has fairly good breath sounds bilaterally is moving air reasonably well with only mild rhonchi. - Cardiovascular Cardiovascular exam: Present: irregular rhythm. Absent: gallop, JVD, systolic murmur - GI/Abdominal GI/Abdominal exam: Present: normal bowel sounds, soft. Absent: organomegaly, tenderness - Extremities Exam Extremities exam: Present: Her leg swelling is a little better although she still has some edema. - Neurological Exam Neurological exam: Present: alert, oriented X3, CN II-XII intact - Psychiatric Psychiatric exam: Present: anxious - Skin Skin exam: Present: warm, dry Results - Labs CBC & BMP: 09/20/16 06:21 09/20/16 06:21 Assessment and Plan (1) Generalized anxiety disorder Status: Chronic Assessment and plan: The patient does have a lot of anxiety problems and gets short of breath when she gets anxious. Her beta-adriana was stopped and she does have some tremor and anxiety. Current Visit: No (2) Obesity Status: Acute Assessment and plan: The patient is very overweight and inactive. Current Visit: No (3) Diastolic CHF Status: Acute Assessment and plan: The patient does have considerable fluid retention and is diuresing fairly well now. Her breathing seems to be stable at present. She looks like she is getting a little better. Current Visit: No Qualifiers: Congestive heart failure chronicity: acute on chronic Qualified Code(s): I50.33 - Acute on chronic diastolic (congestive) heart failure (4) Acute respiratory failure with hypoxia Status: Acute Assessment and plan: Patient comes in with respiratory distress and hypoxemia but she is comfortable at present. He is moving air fairly well without a lot of wheezing. Current Visit: No (5) Asthma with exacerbation Status: Acute Assessment and plan: The patient may have some mild obstructive airways disease but I do not think she has COPD. She is in part restricted because of her size. She does have a heart failure at times. She may have some bronchospasm when she has bronchitis. She is not really wheezing that much now. She is moving air well today with only minimal rhonchi. She is getting her bronchodilator therapy. Current Visit: No (6) Unspecified sleep apnea Status: Acute Assessment and plan: I think she has oxygen at home but apparently her sleep study did not show significant sleep apnea. She will continue oxygen at home. Current Visit: No
--- NOTE | 2016-09-20 15:23 | Cardiology Progress Note ---
Leno Gray April RN, am scribing for, and in the presence of, Sparkle Bustamante MD 15:19. Assessment and Plan (1) Anticoagulant long-term use Status: Chronic Current Visit: Yes (2) COPD exacerbation Status: Acute Current Visit: Yes (3) Edema of both legs Status: Chronic Current Visit: Yes (4) A-fib Status: Chronic Current Visit: Yes Qualifiers: Atrial fibrillation type: paroxysmal Qualified Code(s): I48.0 - Paroxysmal atrial fibrillation (5) Shortness of breath Status: Acute Current Visit: Yes (6) Microcytic anemia Status: Acute Current Visit: Yes Cardiology - PN: Subj Interval history: Hydraulic Punch Press Operator: Dr. Roach SUMMARY: Ms. Sapp is a 75 year old female who is routinely followed by Dr. Roach with a history of paroxysmal atrial fibrillation, chronic diastolic heart failure, Parkinson's disease, morbid obesity, pulmonary embolism, esophageal stricture, and hypertension. Surgical history includes pacemaker, abdominal surgery, and hysterectomy. She reports she was using oxygen intermittently up until about 2 months ago, since then she now requires it continuously. She was admitted to the hospital now with a COPD exacerbation, shortness of breath. Also complains of edema, asymmetrical that is worse on the left than the right, which is chronic for her. She had a limited low probability lung scan. Venous Doppler negative for DVT of upper or lower extremities. EKG on admission is officially interpreted as atrial fibrillation , however it is actually a very regular narrow complex rhythm with a lot of baseline artifact and may represent sinus rhythm. Telemetry shows sinus rhythm. She is anticoagulated on warfarin. 09/20/2016: Ms. Sapp is seen resting in bed no acute distress. Oxygen use via nasal cannula, she continues to be short of breath but states it is improving. She denies any chest pain. She reports she feels as if her heart rate has been elevated, she states she feels it in her back. monitoring analyst currently shows atrial fibrillation with heart rates in the 80s. Sleep medicines saw her in consultation yesterday and reported that she recently had undergone sleep study and did not have any significant sleep apnea. We changed her from metoprolol to Bystolic in hopes of improving her wheezing. In general she really likes her Lopressor and would like to be changed back, we discussed giving it another day. She believes that the Lopressor also helps with her tremors and the sense of her heart pounding in her back. Assessment and plan: 1. Anticoagulant long-term use for both atrial fibrillation and recent pulmonary embolism. 2. COPD exacerbation-lung exam is consistent with this. She has agreed to monitor symptoms and additional day on the [facility]. 3. Bilateral lower extremity asymmetrical edema-this is a chronic finding. There may be an element of cor pulmonale which contributes that she did have right-sided chamber enlargement on her more recent echocardiogram. She is described as having congestive heart failure, however her BNP is less than 400 which would be nonspecific for heart failure. She has normal systolic function and no significant valvular heart disease. She is currently in sinus rhythm and not having any arrhythmias that would contribute to heart failure. 4. Shortness of breath-this is multifactorial including COPD exacerbation, deconditioning, chronic anemia. 5. Atrial fibrillation-this is paroxysmal and appears to be currently rhythm controlled, she is on chronic anticoagulation. She has a tremor in telemetry shows several episodes of artifact, likely related to her tremor. 6. Microcytic anemia-we will follow her hemoglobin levels. Exam (Progress Note) - Constitutional Vitals: Period Temp Pulse Resp BP Sys/Casey Pulse Ox Last 24 Hr 96.6 F-98.2 F 71-82 16-22 98-146/55-71 93-99 Exam: General: Present: Appears Well, No Apparent Distress, Other (Obese, which limits exam) HEENT: Present: PERRL, Mucus Membranes Moist Neck: Present: Supple Neck, Midline Trachea, No Bruit Cardiac: Present: Irregularly Regular, Other (Distant heart tones due to habitus ). Absent: Tachycardia Lungs: Present: Wheezes (Prolonged expiratory wheeze) that are improved compared to yesterday, Oxygen (Via nasal cannula), No Rales, No Rhonchi Neuro: Absent: Resting Tremor. present: Essential Tremor Abdomen: Present: Soft, Active Bowel Sounds, No Masses, Non-Tender. Absent: Distended Skin: Absent: Rash, Suspicious Lesions Extremities: Present: Edema (To left upper extremity), +1 Edema (Right lower extremity), +2 Edema (Left lower extremity). Absent: Normal Gait Result/EKG - Labs CBC & BMP: 09/20/16 06:21 09/20/16 06:21 Lab Results: I have reviewed the past 24 hour labs Labs: Laboratory Results - last 24 hr 09/20/16 09/20/16 06:21 06:21 WBC 12.7 H RBC 3.48 L Hgb 8.8 L Hct 29.2 L MCV 83.9 L MCH 25 L MCHC 30.1 L RDW 16.8 Plt Count 307 D MPV 11.3 Neut % (Auto) 90.2 H Lymph % (Auto) 5.4 L [place] % (Auto) 3.4 Eos % (Auto) 0.0 Baso % (Auto) 0.0 Neut # (Auto) 11.5 H Lymph # (Auto) 0.7 L [place] # (Auto) 0.4 Eos # (Auto) 0.0 Baso # (Auto) 0.0 Immature Gran % 1.0 Nucleated RBC % 0.0 Immature Gran # 0.13 Nucleated RBCs # 0.00 Sodium 142 Potassium 3.7 Chloride 97 L Carbon Dioxide 38 H Anion Gap 10.7 BUN 26 H Creatinine 1.20 H GFR Calculation 52 BUN/Creatinine Ratio 21.00 H Glucose 134 H Calculated Osmolality 289.1 Calcium 8.7 Magnesium 2.0 - EKG EKG shows: atrial fibrillation Quality Measures - Stroke Symptom Onset Unknown: No I, Sparkle Bustamante MD, personally performed the services described in this documentation, ascribed by Anne Burr RN in my presence, and it is both accurate and complete 521 .
[2016-09-20] MEDS: WARFARIN 3 MG TABLET PO SCH (18:37)
[2016-09-20] MEDS: ACETAMINOPHEN 325 MG TABLET PO PRN (20:56)
[2016-09-20] MEDS: clonazePAM 0.5 MG TABLET PO PRN ×2 (20:57)
[2016-09-20] MEDS: GLYCERIN ADULT SUPP RECTAL PRN (22:35)
[2016-09-21] MEDS: ALBUTEROL/IPRATROPIUM 3 ML NEB RESP TX SCH ×4 (01:39→19:35)
[2016-09-21] MEDS: methylPREDNISolone SOD SUC 40 MG/1 ML VIAL IV SCH ×4 (02:02→19:00)
[2016-09-21 05:14] LABS: Basophils % 0.1 % (0.0-0.8); Hematocrit 28.5 VOL% (35.7-47.0); Hemoglobin 8.7 GM/DL (12.0-16.0); Immature Granulocytes % 0.9 %; Immature Granulocytes Absolute 0.13 #; Lymphocytes # 0.7 10*3/uL (1.4-4.0); Lymphocytes % 4.8 % (21.3-54.2); Mean Corpuscular HGB Conc 30.5 GM/DL (32-36); Mean Corpuscular Hemoglobin 26 PG (27-34); Mean Corpuscular Volume 83.6 FL (87-102); Mean Platelet Volume 11.3 FL (9.6-12.0); Monocytes # 0.5 10*3/uL (0.11-0.8); Monocytes % 3.8 % (1.7-12.7); Neutrophils # 12.7 10*3/uL (1.4-7.4); Neutrophils % 90.4 % (38.7-73.9); Platelet Count 311 T/CUMM (130-400); Red Blood Count 3.41 MC/CUMM (3.8-5.5); Red Cell Distribution Width 16.9 % (9.3-17.3)
[2016-09-21 05:43] LABS: Calcium 8.3 MG/DL (8.5-10.1); Hypochromasia 3+; Lymphocytes 7 % (20-55); Macrocytosis 3+; Osmolality,Calculated 290.1 MOS/KG (273-304); Platelet Estimate Normal; Potassium 3.7 MMOL/L (3.5-5.1); Segmented Neutrophils 92 % (50-85); Total Cells Counted 100
[2016-09-21 05:54] LABS: % Iron Saturation 9.5 % (18-50); Ferritin 33.1 ng/ml (8-252)
[2016-09-21] MEDS: LEVOFLOXACIN INJ 750 MG in PREMIX 1 EACH IV SCH (08:00)
[2016-09-21] MEDS: FUROSEMIDE 40 MG/4 ML VIAL IV SCH ×2 (09:36→17:15)
[2016-09-21] MEDS: PANTOPRAZOLE 40 MG TABLET PO SCH ×2 (09:37→22:03)
[2016-09-21] MEDS: DRONEDARONE 400 MG TABLET PO SCH ×2 (09:37→22:03)
[2016-09-21] MEDS: POTASSIUM CHLORIDE 20 MEQ TABLET PO SCH (09:37)
[2016-09-21] MEDS: NEBIVOLOL 5 MG TABLET PO SCH (09:37)
[2016-09-21] MEDS: VANCOMYCIN INJ 1,500 MG in SODIUM CHLORIDE 0.9% 500 ML IV SCH ×2 (09:37→22:03)
[2016-09-21] MEDS: FERROUS SULFATE 325 MG TABLET PO SCH ×2 (09:37→22:03)
--- NOTE | 2016-09-21 13:16 | Pulmonology Progress Note ---
Pulmonary - PN: Subj Interval history: Patient is a 75-year-old white lady that comes in feeling badly with shortness of breath along with some chest congestion. She has been having a lot of edema. She has multiple chronic problems. She says she still has some coughing and a little bit of congestion. She has done fairly well with treatment and feels like she is better today. She still has a slight cough but her shortness of breath is better. She is not having any chest pain. Her swelling is going down. Overall she feels like she is a little better. Exam (Progress Note) - Constitutional Vitals: Period Temp Pulse Resp BP Sys/Casey Pulse Ox Last 24 Hr 97.6 F-98.9 F 73-89 18-22 129-149/62-73 92-100 Exam: General appearance: no acute distress (She looks comfortable on low-flow oxygen. She looks like she feels better.), morbidly obese - Head Head exam: Present: normal inspection, normocephalic - Eye Eye exam: Present: EOMI. Absent: scleral icterus Pupils: Present: GIGI - ENT ENT exam: Present: She has some hoarseness but no redness or exudate - Neck Neck exam: Present: normal inspection. Absent: lymphadenopathy, thyromegaly - Respiratory Respiratory exam: Present: She has fairly good breath sounds bilaterally and her lungs sound better with less rhonchi and decreased crackles. - Cardiovascular Cardiovascular exam: Present: irregular rhythm. Absent: gallop, JVD, systolic murmur - GI/Abdominal GI/Abdominal exam: Present: normal bowel sounds, soft. Absent: organomegaly, tenderness - Extremities Exam Extremities exam: Present: Her leg swelling is a little better. - Neurological Exam Neurological exam: Present: alert, oriented X3, CN II-XII intact - Psychiatric Psychiatric exam: Present: She looks more comfortable today. - Skin Skin exam: Present: warm, dry Results - Labs CBC & BMP: 09/21/16 04:29 09/21/16 04:29 Assessment and Plan (1) Generalized anxiety disorder Status: Chronic Assessment and plan: The patient does have a lot of anxiety problems and gets short of breath when she gets anxious. She looks a little calmer now. Current Visit: No (2) Obesity Status: Acute Assessment and plan: The patient is very overweight and inactive. Current Visit: No (3) Diastolic CHF Status: Acute Assessment and plan: The patient does have considerable fluid retention and is diuresing fairly well now. Her breathing seems to be stable at present. Her volume status looks a little better. Current Visit: No Qualifiers: Congestive heart failure chronicity: acute on chronic Qualified Code(s): I50.33 - Acute on chronic diastolic (congestive) heart failure (4) Acute respiratory failure with hypoxia Status: Acute Assessment and plan: Patient comes in with respiratory distress and hypoxemia but she is comfortable at present. She does look like her breathing is better. Current Visit: No (5) Asthma with exacerbation Status: Acute Assessment and plan: The patient may have some mild obstructive airways disease but I do not think she has COPD. She is in part restricted because of her size. She does have a heart failure at times. She may have some bronchospasm when she has bronchitis. She is not really wheezing that much now. She looks like she is breathing better and will taper her steroids . Current Visit: No (6) Unspecified sleep apnea Status: Acute Assessment and plan: I think she has oxygen at home but apparently her sleep study did not show significant sleep apnea. She will continue oxygen at home. Current Visit: No
--- NOTE | 2016-09-21 15:06 | Hospitalist Progress Note ---
Assessment and Plan (1) Chronic kidney disease Status: Chronic Current Visit: No (2) Generalized anxiety disorder Status: Chronic Current Visit: No (3) Suspected sleep apnea Status: Acute Assessment and plan: No significant sleep apnea per recent sleep study. Current Visit: No (4) Diastolic CHF Status: Acute Assessment and plan: Lasix 40 IV BID Current Visit: No Qualifiers: Congestive heart failure chronicity: acute on chronic Qualified Code(s): I50.33 - Acute on chronic diastolic (congestive) heart failure (5) Asthma with exacerbation Status: Acute Assessment and plan: Continue duonebs, steroids, antibiotics, supplemental oxygen Pulmonary managing Current Visit: No (6) Anticoagulant long-term use Status: Chronic Current Visit: Yes (7) Microcytic anemia Status: Acute Assessment and plan: H/H is at her baseline per chart review Iron deficiency, start replacement Current Visit: Yes Hospitalist: Subjective Interval history: Patient reports that she might feel a little better. She has less coarse breath sounds. Exam - Constitutional Vitals: Period Temp Pulse Resp BP Sys/Casey Pulse Ox Last 24 Hr 97.6 F-98.9 F 73-89 18-22 129-149/62-73 92-100 General appearance: over weight - Head Head exam: Present: normocephalic, atraumatic - Eye Eye exam: Present: EOMI Pupils: Present: GIGI - ENT ENT exam: Present: normal exam - Neck Neck exam: Present: normal inspection - Respiratory Respiratory exam: Present: other (coarse breath sounds). Absent: wheezes - Cardiovascular Cardiovascular exam: Present: regular rate and rhythm - GI/Abdominal GI/Abdominal exam: Present: normal bowel sounds, soft. Absent: tenderness, rebound - Extremities Exam Extremities exam: Present: normal inspection - Back Exam Back exam: Present: normal inspection - Neurological Exam Neurological exam: Present: alert, oriented X3 - Psychiatric Psychiatric exam: Present: normal affect, normal mood - Skin Skin exam: Present: warm, intact Results - Labs CBC & BMP: 09/21/16 04:29 09/21/16 04:29 Quality Measures - Stroke Symptom Onset Unknown: No
[2016-09-21] MEDS: WARFARIN 3 MG TABLET PO SCH (17:18)
--- NOTE | 2016-09-21 18:29 | Cardiology Progress Note ---
Leno Gray April RN, am scribing for, and in the presence of, Sparkle Bustamante MD 18:21. Assessment and Plan (1) Anticoagulant long-term use Status: Chronic Current Visit: Yes (2) COPD exacerbation Status: Acute Current Visit: Yes (3) Edema of both legs Status: Chronic Current Visit: Yes (4) A-fib Status: Chronic Current Visit: Yes Qualifiers: Atrial fibrillation type: paroxysmal Qualified Code(s): I48.0 - Paroxysmal atrial fibrillation (5) Shortness of breath Status: Acute Current Visit: Yes (6) Microcytic anemia Status: Acute Current Visit: Yes Cardiology - PN: Subj Interval history: Vice President & General Manager [employer]: Dr. Roach SUMMARY: Ms. Sapp is a 75 year old female who is routinely followed by Dr. Roach with a history of paroxysmal atrial fibrillation, chronic diastolic heart failure, Parkinson's disease, morbid obesity, pulmonary embolism, esophageal stricture, and hypertension. Surgical history includes pacemaker, abdominal surgery, and hysterectomy. She reports she was using oxygen intermittently up until about 2 months ago, since then she now requires it continuously. She was admitted to the hospital now with a COPD exacerbation, shortness of breath. Also complains of edema, asymmetrical that is worse on the left than the right, which is chronic for her. She had a limited low probability lung scan. Venous Doppler negative for DVT of upper or lower extremities. EKG on admission is officially interpreted as atrial fibrillation , however it is actually a very regular narrow complex rhythm with a lot of baseline artifact and may represent sinus rhythm. Telemetry shows sinus rhythm. She is anticoagulated on warfarin. 09/20/2016: Ms. Sapp is seen resting in bed no acute distress. Oxygen use via nasal cannula, she continues to be short of breath but states it is improving. She denies any chest pain. She reports she feels as if her heart rate has been elevated, she states she feels it in her back. pediatrics physician currently shows atrial fibrillation with heart rates in the 80s. Sleep medicines saw her in consultation yesterday and reported that she recently had undergone sleep study and did not have any significant sleep apnea. We changed her from metoprolol to Bystolic in hopes of improving her wheezing. In general she really likes her Lopressor and would like to be changed back, we discussed giving it another day. She believes that the Lopressor also helps with her tremors and the sense of her heart pounding in her back. 09/21/2016: Ms. Sapp is without complaint today except complaining regarding her tremors. She states she is less short of breath than yesterday. She wishes to change back to her Lopressor because she believes this helps her tremors as well as being control her palpitations. She continues to be in atrial fibrillation with heart rates in the 80s. Assessment and plan: 1. Shortness of breath-this is multifactorial including COPD exacerbation, deconditioning, chronic anemia. 2. Atrial fibrillation-this is paroxysmal and appears to be currently rhythm controlled, she is on chronic anticoagulation. She has a tremor in telemetry shows several episodes of artifact, likely related to her tremor. 3. Anticoagulant long-term use for both atrial fibrillation and recent pulmonary embolism. 4. COPD exacerbation-lung exam is consistent with this. She has agreed to monitor symptoms and additional day on the Bystolic. 5. Bilateral lower extremity asymmetrical edema-this is a chronic finding. There may be an element of cor pulmonale which contributes that she did have right-sided chamber enlargement on her more recent echocardiogram. She is described as having congestive heart failure, however her BNP is less than 400 which would be nonspecific for heart failure. She has normal systolic function and no significant valvular heart disease. She is currently in sinus rhythm and not having any arrhythmias that would contribute to heart failure. 6. Microcytic anemia-we will follow her hemoglobin levels. Exam (Progress Note) - Constitutional Vitals: Period Temp Pulse Resp BP Sys/Casey Pulse Ox Last 24 Hr 97.6 F-98.9 F 73-89 18-22 129-149/62-73 92-100 Exam: General appearance: Obese, no acute distress - Head Head exam: Present: normal inspection, normocephalic, atraumatic. Absent: hematoma, laceration - Eye Eye exam: Present: EOMI. Absent: conjunctival injection, nystagmus, periorbital swelling, scleral icterus, laceration to eyelids Pupils: Present: PERRL. Absent: constricted, dilated, fixed, irregular, unequal - ENT ENT exam: Present: normal exam, normal external ear exam - Neck Neck exam: Present: normal inspection. Absent: lymphadenopathy, meningismus, tenderness, thyromegaly - Respiratory Respiratory exam: Present: bilateral wheezes. Absent: accessory muscle use, chest wall tenderness - Cardiovascular Cardiovascular exam: Present: regular rate and rhythm. Absent: carotid bruit, gallop, JVD, rubs - GI/Abdominal GI/Abdominal exam: Present: normal bowel sounds, soft. Absent: distended, firm , guarding, hernia, mass, tenderness, rebound. - Extremities Exam Extremities exam: Present: 1-2+ bilateral lower extremity edema left greater than right, normal capillary refill. Absent: calf tenderness - Back Exam Back exam: Unable to assess due to patient's inability to turn - Neurological Exam Neurological exam: Present: alert, oriented X3, grossly intact, intention tremor is present - Psychiatric Psychiatric exam: Present: normal affect, normal mood - Skin Skin exam: Present: normal color, warm, dry, intact. Absent: cyanosis, diaphoretic, rash, urticaria Result/EKG - Labs CBC & BMP: 09/21/16 04:29 09/21/16 04:29 Lab Results: I have reviewed the past 24 hour labs Labs: Laboratory Results - last 24 hr 09/21/16 09/21/16 09/21/16 04:29 04:29 04:29 WBC 14.0 H RBC 3.41 L Hgb 8.7 L Hct 28.5 L MCV 83.6 L MCH 26 L MCHC 30.5 L RDW 16.9 Plt Count 311 MPV 11.3 Neut % (Auto) 90.4 H Lymph % (Auto) 4.8 L [place] % (Auto) 3.8 Eos % (Auto) 0.0 Baso % (Auto) 0.1 Neut # (Auto) 12.7 H Lymph # (Auto) 0.7 L [place] # (Auto) 0.5 Eos # (Auto) 0.0 Baso # (Auto) 0.0 Total Counted 100 Immature Gran % 0.9 Nucleated RBC % 0.0 Immature Gran # 0.13 Segmented Neutrophils 92 H Lymphocytes 7 L Monocytes 1 L Nucleated RBCs # 0.00 Platelet Estimate Normal Hypochromasia 3+ Macrocytosis 3+ Sodium 142 Potassium 3.7 Chloride 99 Carbon Dioxide 36 H Anion Gap 10.7 BUN 30 H Creatinine 1.10 H GFR Calculation 58 BUN/Creatinine Ratio 27.00 H Glucose 132 H Calculated Osmolality 290.1 Calcium 8.3 L Magnesium 2.0 Iron 28 L TIBC 294 % Saturation 9.5 L Ferritin 33.1 Quality Measures - Stroke Symptom Onset Unknown: No I, Sparkle Bustamante MD, personally performed the services described in this documentation, ascribed by Anne Burr RN in my presence, and it is both accurate and complete 829 .
[2016-09-21] MEDS: METOPROLOL TARTRATE 25 MG TABLET PO SCH (22:04)
[2016-09-21] MEDS: GLYCERIN ADULT SUPP RECTAL PRN (23:49)
[2016-09-21] MEDS: clonazePAM 0.5 MG TABLET PO PRN (23:50)
[2016-09-22] MEDS: ALBUTEROL/IPRATROPIUM 3 ML NEB RESP TX SCH ×4 (01:19→19:30)
[2016-09-22] MEDS: methylPREDNISolone SOD SUC 40 MG/1 ML VIAL IV SCH ×3 (06:21→18:27)
[2016-09-22] MEDS: LEVOFLOXACIN INJ 750 MG in PREMIX 1 EACH IV SCH (06:21)
[2016-09-22 06:43] LABS: Basophils % 0.1 % (0.0-0.8); Hematocrit 29.9 VOL% (35.7-47.0); Immature Granulocytes % 1.2 %; Immature Granulocytes Absolute 0.17 #; Lymphocytes # 1.1 10*3/uL (1.4-4.0); Lymphocytes % 7.4 % (21.3-54.2); Mean Corpuscular HGB Conc 30.1 GM/DL (32-36); Mean Corpuscular Hemoglobin 25 PG (27-34); Mean Corpuscular Volume 83.3 FL (87-102); Mean Platelet Volume 12.8 FL (9.6-12.0); Monocytes # 0.8 10*3/uL (0.11-0.8); Monocytes % 5.8 % (1.7-12.7); Neutrophils # 12.2 10*3/uL (1.4-7.4); Neutrophils % 85.5 % (38.7-73.9); Red Blood Count 3.59 MC/CUMM (3.8-5.5); Red Cell Distribution Width 16.9 % (9.3-17.3); White Blood Count 14.2 T/CUMM (4-12)
[2016-09-22 06:50] LABS: Platelet Count 190 T/CUMM (130-400)
[2016-09-22 07:00] LABS: Calcium 8.7 MG/DL (8.5-10.1); Magnesium 2.1 MG/DL (1.8-2.4); Osmolality,Calculated 292.1 MOS/KG (273-304); Potassium 3.8 MMOL/L (3.5-5.1)
[2016-09-22] MEDS: DRONEDARONE 400 MG TABLET PO SCH ×2 (09:05→20:27)
[2016-09-22] MEDS: FUROSEMIDE 40 MG/4 ML VIAL IV SCH (09:05)
[2016-09-22] MEDS: POTASSIUM CHLORIDE 20 MEQ TABLET PO SCH (09:05)
[2016-09-22] MEDS: PANTOPRAZOLE 40 MG TABLET PO SCH ×2 (09:05→20:27)
[2016-09-22] MEDS: FERROUS SULFATE 325 MG TABLET PO SCH ×2 (09:05→20:27)
[2016-09-22] MEDS: METOPROLOL TARTRATE 25 MG TABLET PO SCH ×2 (09:05→20:27)
[2016-09-22] MEDS: VANCOMYCIN INJ 1,500 MG in SODIUM CHLORIDE 0.9% 500 ML IV SCH (09:50)
--- NOTE | 2016-09-22 10:07 | Pulmonology Progress Note ---
Pulmonary - PN: Subj Interval history: Patient is a 75-year-old white lady that comes in feeling badly with shortness of breath along with some chest congestion. She has been having a lot of edema. She has multiple chronic problems. She says she still has some coughing and a little bit of congestion. She has been tolerating treatment but she still has a little bit of coughing and congestion. She does not do anything but lay in bed. She is still eating fairly well. She does not have any edema now. She is stable but hard to clear up. Exam (Progress Note) - Constitutional Vitals: Period Temp Pulse Resp BP Sys/Casey Pulse Ox Last 24 Hr 96.8 F-99.7 F 78-92 18-20 119-149/66-83 91-99 Exam: General appearance: no acute distress (She looks comfortable on low-flow oxygen. ), morbidly obese - Head Head exam: Present: normal inspection, normocephalic - Eye Eye exam: Present: EOMI. Absent: scleral icterus Pupils: Present: GIGI - ENT ENT exam: Present: She has some hoarseness but no redness or exudate. Her voice is better now. - Neck Neck exam: Present: normal inspection. Absent: lymphadenopathy, thyromegaly - Respiratory Respiratory exam: Present: She has fairly good breath sounds bilaterally she still has some rhonchi and cough. - Cardiovascular Cardiovascular exam: Present: irregular rhythm. Absent: gallop, JVD, systolic murmur - GI/Abdominal GI/Abdominal exam: Present: normal bowel sounds, soft. Absent: organomegaly, tenderness - Extremities Exam Extremities exam: Present: Her leg swelling is a little better. - Neurological Exam Neurological exam: Present: alert, oriented X3, CN II-XII intact - Psychiatric Psychiatric exam: Present: She looks more comfortable today. - Skin Skin exam: Present: warm, dry Results - Labs CBC & BMP: 09/22/16 06:01 09/22/16 06:01 Assessment and Plan (1) Generalized anxiety disorder Status: Chronic Assessment and plan: The patient does have a lot of anxiety problems and gets short of breath when she gets anxious. She looks a little calmer now. Current Visit: No (2) Obesity Status: Acute Assessment and plan: The patient is very overweight and inactive. Current Visit: No (3) Diastolic CHF Status: Acute Assessment and plan: The patient does have considerable fluid retention and is diuresing fairly well now. She does not appear to have any edema now. Current Visit: No Qualifiers: Congestive heart failure chronicity: acute on chronic Qualified Code(s): I50.33 - Acute on chronic diastolic (congestive) heart failure (4) Acute respiratory failure with hypoxia Status: Acute Assessment and plan: Patient comes in with respiratory distress and hypoxemia but she is comfortable at present. She does look like her breathing is better. She has trouble clearing secretions and still has some bronchitic symptoms. I will continue with therapy. Current Visit: No (5) Asthma with exacerbation Status: Acute Assessment and plan: The patient may have some mild obstructive airways disease but I do not think she has COPD. She is in part restricted because of her size. She does have a heart failure at times. She may have some bronchospasm when she has bronchitis. She still has some coarse breath sounds and rhonchi and is still coughing some. Will continue with bronchodilator therapy. Current Visit: No (6) Unspecified sleep apnea Status: Acute Assessment and plan: I think she has oxygen at home but apparently her sleep study did not show significant sleep apnea. She will continue oxygen at home. Current Visit: No
[2016-09-22] MEDS: BUDESONIDE/FORMOTEROL 160-4.5 INHALER 6 GM INH SCH ×2 (11:34→21:04)
--- NOTE | 2016-09-22 14:34 | Hospitalist Progress Note ---
Assessment and Plan (1) Chronic kidney disease Status: Chronic Current Visit: No (2) Generalized anxiety disorder Status: Chronic Current Visit: No (3) Suspected sleep apnea Status: Acute Assessment and plan: No significant sleep apnea per recent sleep study. Current Visit: No (4) Diastolic CHF Status: Acute Assessment and plan: Lasix 40 IV BID Current Visit: No Qualifiers: Congestive heart failure chronicity: acute on chronic Qualified Code(s): I50.33 - Acute on chronic diastolic (congestive) heart failure (5) Asthma with exacerbation Status: Acute Assessment and plan: Continue duonebs, steroids, antibiotics, supplemental oxygen Pulmonary managing Current Visit: No (6) Anticoagulant long-term use Status: Chronic Current Visit: Yes (7) Microcytic anemia Status: Acute Assessment and plan: H/H is at her baseline per chart review Iron deficiency, start replacement Current Visit: Yes Hospitalist: Subjective Interval history: No acute events overnight. Reports that breathing is maybe a little better. Exam - Constitutional Vitals: Period Temp Pulse Resp BP Sys/Casey Pulse Ox Last 24 Hr 96.8 F-99.7 F 71-92 18-20 119-144/67-83 94-99 General appearance: over weight - Head Head exam: Present: normocephalic, atraumatic - Eye Eye exam: Present: EOMI Pupils: Present: GIGI - ENT ENT exam: Present: normal exam - Neck Neck exam: Present: normal inspection - Respiratory Respiratory exam: Present: rhonchi, wheezes, other (coarse breath sounds, no wheezing) - Cardiovascular Cardiovascular exam: Present: regular rate and rhythm - GI/Abdominal GI/Abdominal exam: Present: normal bowel sounds, soft. Absent: tenderness, rebound - Extremities Exam Extremities exam: Present: normal inspection - Back Exam Back exam: Present: normal inspection - Neurological Exam Neurological exam: Present: alert, oriented X3 - Psychiatric Psychiatric exam: Present: normal affect, normal mood - Skin Skin exam: Present: warm, intact Results - Labs CBC & BMP: 09/22/16 06:01 09/22/16 06:01 Quality Measures - Stroke Symptom Onset Unknown: No
[2016-09-22] MEDS: FUROSEMIDE 40 MG TABLET PO SCH (17:03)
[2016-09-22] MEDS: WARFARIN 3 MG TABLET PO SCH (17:03)
[2016-09-22] MEDS: ACETAMINOPHEN 325 MG TABLET PO PRN (17:04)
[2016-09-22] MEDS: GLYCERIN ADULT SUPP RECTAL PRN (17:38)
--- NOTE | 2016-09-22 19:18 | Cardiology Progress Note ---
Leno Gray April RN, am scribing for, and in the presence of, Sparkle Bustamante MD 19:18. Assessment and Plan (1) Anticoagulant long-term use Status: Chronic Current Visit: Yes (2) COPD exacerbation Status: Acute Current Visit: Yes (3) Edema of both legs Status: Chronic Current Visit: Yes (4) A-fib Status: Chronic Current Visit: Yes Qualifiers: Atrial fibrillation type: paroxysmal Qualified Code(s): I48.0 - Paroxysmal atrial fibrillation (5) Shortness of breath Status: Acute Current Visit: Yes (6) Microcytic anemia Status: Acute Current Visit: Yes Cardiology - PN: Subj Interval history: Promotional Marketing Agent: Dr. Roach SUMMARY: Ms. Sapp is a 75 year old female who is routinely followed by Dr. Roach with a history of paroxysmal atrial fibrillation, chronic diastolic heart failure, Parkinson's disease, morbid obesity, pulmonary embolism, esophageal stricture, and hypertension. Surgical history includes pacemaker, abdominal surgery, and hysterectomy. She reports she was using oxygen intermittently up until about 2 months ago, since then she now requires it continuously. She was admitted to the hospital now with a COPD exacerbation, shortness of breath. Also complains of edema, asymmetrical that is worse on the left than the right, which is chronic for her. She had a limited low probability lung scan. Venous Doppler negative for DVT of upper or lower extremities. EKG on admission is officially interpreted as atrial fibrillation , however it is actually a very regular narrow complex rhythm with a lot of baseline artifact and may represent sinus rhythm. Telemetry shows sinus rhythm. She is anticoagulated on warfarin. 09/20/2016: Ms. Sapp is seen resting in bed no acute distress. Oxygen use via nasal cannula, she continues to be short of breath but states it is improving. She denies any chest pain. She reports she feels as if her heart rate has been elevated, she states she feels it in her back. panel monitor currently shows atrial fibrillation with heart rates in the 80s. Sleep medicines saw her in consultation yesterday and reported that she recently had undergone sleep study and did not have any significant sleep apnea. We changed her from metoprolol to Bystolic in hopes of improving her wheezing. In general she really likes her Lopressor and would like to be changed back, we discussed giving it another day. She believes that the Lopressor also helps with her tremors and the sense of her heart pounding in her back. 09/21/2016: Ms. Sapp is without complaint today except complaining regarding her tremors. She states she is less short of breath than yesterday. She wishes to change back to her Lopressor because she believes this helps her tremors as well as being control her palpitations. She continues to be in atrial fibrillation with heart rates in the 80s. 09/22/2016: Ms. Sapp denies any chest pain this morning. She states she is less short of breath and feels like her congestion has improved. Yesterday we changed her Bystolic back to Lopressor because she said that it helped with her tremors. This morning she states that her tremors have improved some. Assessment and plan: 1. Shortness of breath-this is multifactorial including COPD exacerbation, deconditioning, chronic anemia. 2. Atrial fibrillation-this is paroxysmal and appears to be currently rhythm controlled, she is on chronic anticoagulation. She has a tremor in telemetry shows several episodes of artifact, likely related to her tremor. She has had some atrial fibrillation now seen on the monitor, but is rate controlled and she is already anticoagulated. 3. Anticoagulant long-term use for both atrial fibrillation and recent pulmonary embolism. 4. COPD exacerbation-lung exam is consistent with this. She has agreed to monitor symptoms and additional day on the Bystolic. 5. Bilateral lower extremity asymmetrical edema-this is a chronic finding. There may be an element of cor pulmonale which contributes that she did have right-sided chamber enlargement on her more recent echocardiogram. She is described as having congestive heart failure, however her BNP is less than 400 which would be nonspecific for heart failure. She has normal systolic function and no significant valvular heart disease. 6. Microcytic anemia-we will follow her hemoglobin levels. Exam (Progress Note) - Constitutional Vitals: Period Temp Pulse Resp BP Sys/Casey Pulse Ox Last 24 Hr 96.8 F-99.7 F 78-92 18-20 119-149/66-83 91-99 Exam: General: Present: Appears Well, No Apparent Distress, Other (Obese, which limits exam) HEENT: Present: PERRL, Mucus Membranes Moist Neck: Present: Supple Neck, Midline Trachea, No Bruit Cardiac: Present: Irregularly Regular, Other (Distant heart tones due to habitus ). Absent: Tachycardia Lungs: Present: Wheezes (Prolonged expiratory wheeze), Oxygen (Via nasal cannula ), No Rales, No Rhonchi Neuro: Present: Resting Tremor Abdomen: Present: Soft, Active Bowel Sounds, No Masses, Non-Tender. Absent: Distended Skin: Absent: Rash, Suspicious Lesions Extremities: Present: Edema (To left upper extremity), +1 Edema (Right lower extremity), +2 Edema (Left lower extremity). Absent: Normal Gait Result/EKG - Labs CBC & BMP: 09/22/16 06:01 09/22/16 06:01 Lab Results: I have reviewed the past 24 hour labs Labs: Laboratory Results - last 24 hr 09/22/16 09/22/16 09/22/16 06:01 06:01 08:32 WBC 14.2 H RBC 3.59 L Hgb 9.0 L Hct 29.9 L MCV 83.3 L MCH 25 L MCHC 30.1 L RDW 16.9 Plt Count 190 D MPV 12.8 H Neut % (Auto) 85.5 H Lymph % (Auto) 7.4 L Gosper % (Auto) 5.8 Eos % (Auto) 0.0 Baso % (Auto) 0.1 Neut # (Auto) 12.2 H Lymph # (Auto) 1.1 L Gosper # (Auto) 0.8 Eos # (Auto) 0.0 Baso # (Auto) 0.0 Immature Gran % 1.2 Nucleated RBC % 0.0 Immature Gran # 0.17 Nucleated RBCs # 0.00 Sodium 142 Potassium 3.8 Chloride 99 Carbon Dioxide 38 H Anion Gap 8.8 BUN 38 H Creatinine 1.20 H GFR Calculation 52 BUN/Creatinine Ratio 31.00 H Glucose 124 H Calculated Osmolality 292.1 Calcium 8.7 Magnesium 2.1 Vancomycin Trough 36.5 H - EKG EKG results: interpreted by me EKG shows: atrial fibrillation Quality Measures - Stroke Symptom Onset Unknown: No I, Sparkle Bustamante MD, personally performed the services described in this documentation, ascribed by Anne Burr RN in my presence, and it is both accurate and complete [id number] .
[2016-09-23] MEDS: ALBUTEROL/IPRATROPIUM 3 ML NEB RESP TX SCH ×4 (00:44→19:35)
[2016-09-23] MEDS: clonazePAM 0.5 MG TABLET PO PRN (01:45)
[2016-09-23 05:17] LABS: Basophils % 0.1 % (0.0-0.8); Hematocrit 30.6 VOL% (35.7-47.0); Hemoglobin 9.3 GM/DL (12.0-16.0); Immature Granulocytes % 1.5 %; Immature Granulocytes Absolute 0.18 #; Lymphocytes # 1.2 10*3/uL (1.4-4.0); Lymphocytes % 9.5 % (21.3-54.2); Mean Corpuscular HGB Conc 30.4 GM/DL (32-36); Mean Corpuscular Hemoglobin 25 PG (27-34); Mean Corpuscular Volume 83.4 FL (87-102); Monocytes # 0.8 10*3/uL (0.11-0.8); Monocytes % 6.8 % (1.7-12.7); Neutrophils # 10.2 10*3/uL (1.4-7.4); Neutrophils % 82.1 % (38.7-73.9); Platelet Count 306 T/CUMM (130-400); Red Blood Count 3.67 MC/CUMM (3.8-5.5); Red Cell Distribution Width 16.5 % (9.3-17.3); White Blood Count 12.4 T/CUMM (4-12)
[2016-09-23 05:33] LABS: INR 1.4; PT Patient Result 14.6 SECS
[2016-09-23 05:48] LABS: Calcium 8.1 MG/DL (8.5-10.1); Magnesium 2.2 MG/DL (1.8-2.4); Osmolality,Calculated 291.3 MOS/KG (273-304); Potassium 3.8 MMOL/L (3.5-5.1)
[2016-09-23] MEDS: methylPREDNISolone SOD SUC 40 MG/1 ML VIAL IV SCH (06:23)
[2016-09-23] MEDS: LEVOFLOXACIN INJ 750 MG in PREMIX 1 EACH IV SCH (06:23)
[2016-09-23] MEDS: POTASSIUM CHLORIDE 20 MEQ TABLET PO SCH (09:02)
[2016-09-23] MEDS: DRONEDARONE 400 MG TABLET PO SCH ×2 (09:02→21:18)
[2016-09-23] MEDS: FUROSEMIDE 40 MG TABLET PO SCH ×2 (09:02→16:06)
[2016-09-23] MEDS: FERROUS SULFATE 325 MG TABLET PO SCH ×2 (09:02→21:17)
[2016-09-23] MEDS: PANTOPRAZOLE 40 MG TABLET PO SCH ×2 (09:02→21:17)
[2016-09-23] MEDS: METOPROLOL TARTRATE 25 MG TABLET PO SCH ×2 (09:06→21:18)
[2016-09-23] MEDS: BUDESONIDE/FORMOTEROL 160-4.5 INHALER 6 GM INH SCH ×2 (09:11→21:29)
--- NOTE | 2016-09-23 09:23 | Pulmonology Progress Note ---
Pulmonary - PN: Subj Interval history: Patient is a 75-year-old white lady that comes in feeling badly with shortness of breath along with some chest congestion. She has been having a lot of edema. She has multiple chronic problems. She says she still has some coughing and a little bit of congestion. She has been tolerating treatment but she still has a little bit of coughing and congestion. She does not do anything but lay in bed. She is still eating fairly well. She does not have any edema now. She says she had a fairly good night and her breathing is better. Overall she looks reasonably comfortable. She is probably close to baseline. Exam (Progress Note) - Constitutional Vitals: Period Temp Pulse Resp BP Sys/Casey Pulse Ox Last 24 Hr 96.7 F-98.0 F 60-88 16-20 125-154/57-86 90-100 Exam: General appearance: no acute distress (She looks comfortable on low-flow oxygen. ), morbidly obese - Head Head exam: Present: normal inspection, normocephalic - Eye Eye exam: Present: EOMI. Absent: scleral icterus Pupils: Present: GIGI - ENT ENT exam: Present: She is talking better and has no hoarseness now. - Neck Neck exam: Present: normal inspection. Absent: lymphadenopathy, thyromegaly - Respiratory Respiratory exam: Present: She has fairly good breath sounds bilaterally and her lungs sound better with less rhonchi. - Cardiovascular Cardiovascular exam: Present: irregular rhythm. Absent: gallop, JVD, systolic murmur - GI/Abdominal GI/Abdominal exam: Present: normal bowel sounds, soft. Absent: organomegaly, tenderness - Extremities Exam Extremities exam: Present: Her leg swelling has gone down nicely now. - Neurological Exam Neurological exam: Present: alert, oriented X3, CN II-XII intact - Psychiatric Psychiatric exam: Present: She looks more comfortable today. - Skin Skin exam: Present: warm, dry Results - Labs CBC & BMP: 09/23/16 04:56 09/23/16 04:56 Assessment and Plan (1) Generalized anxiety disorder Status: Chronic Assessment and plan: The patient does have a lot of anxiety problems and gets short of breath when she gets anxious. She looks a little calmer now. She always has some nerve issues. Current Visit: No (2) Obesity Status: Acute Assessment and plan: The patient is very overweight and inactive. Current Visit: No (3) Diastolic CHF Status: Acute Assessment and plan: The patient does have considerable fluid retention and is diuresing fairly well now. She does not appear to have any edema now. She appears to be euvolemic now. Current Visit: No Qualifiers: Congestive heart failure chronicity: acute on chronic Qualified Code(s): I50.33 - Acute on chronic diastolic (congestive) heart failure (4) Acute respiratory failure with hypoxia Status: Acute Assessment and plan: Patient comes in with respiratory distress and hypoxemia but she is comfortable at present. She does look like her breathing is better. Her cough is better and her lungs sound better. She looks like she is close to baseline now. Will change her to oral medicines. Current Visit: No (5) Asthma with exacerbation Status: Acute Assessment and plan: The patient may have some mild obstructive airways disease but I do not think she has COPD. She is in part restricted because of her size. She does have a heart failure at times. She may have some bronchospasm when she has bronchitis. Her symptoms are better and she is breathing better now. Current Visit: No (6) Unspecified sleep apnea Status: Acute Assessment and plan: I think she has oxygen at home but apparently her sleep study did not show significant sleep apnea. She will continue oxygen at home. Current Visit: No
[2016-09-23] MEDS: predniSONE 20 MG TABLET PO SCH (09:51)
--- NOTE | 2016-09-23 13:15 | Cardiology Progress Note ---
Leno Gray April RN, am scribing for, and in the presence of, Sparkle Bustamante MD 13:15. Assessment and Plan (1) Anticoagulant long-term use Status: Chronic Current Visit: Yes (2) COPD exacerbation Status: Acute Current Visit: Yes (3) Edema of both legs Status: Chronic Current Visit: Yes (4) A-fib Status: Chronic Current Visit: Yes Qualifiers: Atrial fibrillation type: paroxysmal Qualified Code(s): I48.0 - Paroxysmal atrial fibrillation (5) Shortness of breath Status: Acute Current Visit: Yes (6) Microcytic anemia Status: Acute Current Visit: Yes Cardiology - PN: Subj Interval history: Heavy Machinery Assembler: Dr. Roach SUMMARY: Ms. Sapp is a 75 year old female who is routinely followed by Dr. Roach with a history of paroxysmal atrial fibrillation, chronic diastolic heart failure, Parkinson's disease, morbid obesity, pulmonary embolism, esophageal stricture, and hypertension. Surgical history includes pacemaker, abdominal surgery, and hysterectomy. She reports she was using oxygen intermittently up until about 2 months ago, since then she now requires it continuously. She was admitted to the hospital now with a COPD exacerbation, shortness of breath. Also complains of edema, asymmetrical that is worse on the left than the right, which is chronic for her. She had a limited low probability lung scan. Venous Doppler negative for DVT of upper or lower extremities. EKG on admission is officially interpreted as atrial fibrillation , however it is actually a very regular narrow complex rhythm with a lot of baseline artifact and may represent sinus rhythm. Telemetry shows sinus rhythm. She is anticoagulated on warfarin. 09/20/2016: Ms. Sapp is seen resting in bed no acute distress. Oxygen use via nasal cannula, she continues to be short of breath but states it is improving. She denies any chest pain. She reports she feels as if her heart rate has been elevated, she states she feels it in her back. oil field pumper currently shows atrial fibrillation with heart rates in the 80s. Sleep medicines saw her in consultation yesterday and reported that she recently had undergone sleep study and did not have any significant sleep apnea. We changed her from metoprolol to Bystolic in hopes of improving her wheezing. In general she really likes her Lopressor and would like to be changed back, we discussed giving it another day. She believes that the Lopressor also helps with her tremors and the sense of her heart pounding in her back. 09/21/2016: Ms. Sapp is without complaint today except complaining regarding her tremors. She states she is less short of breath than yesterday. She wishes to change back to her Lopressor because she believes this helps her tremors as well as being control her palpitations. She continues to be in atrial fibrillation with heart rates in the 80s. 09/22/2016: Ms. Sapp denies any chest pain this morning. She states she is less short of breath and feels like her congestion has improved. Yesterday we changed her Bystolic back to Lopressor because she said that it helped with her tremors. This morning she states that her tremors have improved some. 09/23/2016: Ms. Sapp denies any chest pain this morning. She says her breathing has improved, but she has not gotten up yet this morning. Vital signs are stable throughout the night. oil field pumper currently shows atrial fibrillation with heart rates in the 60s. She reports her tremors have continued to improve. Assessment and plan: 1. Shortness of breath-this is multifactorial including COPD exacerbation, deconditioning, chronic anemia. 2. Atrial fibrillation-this is paroxysmal and appears to be currently rhythm controlled, she is on chronic anticoagulation. She has a tremor in telemetry shows several episodes of artifact, likely related to her tremor. She has had some atrial fibrillation now seen on the monitor, but is rate controlled and she is already anticoagulated. 3. Anticoagulant long-term use for both atrial fibrillation and recent pulmonary embolism. 4. COPD exacerbation-lung exam is consistent with this. We have changed her Bystolic back to Lopressor per patient's request because the Lopressor seems to help her tremors. 5. Bilateral lower extremity asymmetrical edema-this is a chronic finding. There may be an element of cor pulmonale which contributes that she did have right-sided chamber enlargement on her more recent echocardiogram. She is described as having congestive heart failure, however her BNP is less than 400 which would be nonspecific for heart failure. She has normal systolic function and no significant valvular heart disease. 6. Microcytic anemia-we will follow her hemoglobin levels. Exam (Progress Note) - Constitutional Vitals: Period Temp Pulse Resp BP Sys/Casey Pulse Ox Last 24 Hr 96.7 F-98.0 F 60-88 16-20 125-154/62-86 90-99 Exam: General: Present: Appears Well, No Apparent Distress, Other (Obese, which limits exam) HEENT: Present: PERRL, Mucus Membranes Moist Neck: Present: Supple Neck, Midline Trachea, No Bruit Cardiac: Present: Irregularly Regular, Other (Distant heart tones due to habitus ). Absent: Tachycardia Lungs: Present: Wheezes (Prolonged expiratory wheeze), Oxygen (Via nasal cannula ), No Rales, No Rhonchi Neuro: Present: Resting Tremor Abdomen: Present: Soft, Active Bowel Sounds, No Masses, Non-Tender. Absent: Distended Skin: Absent: Rash, Suspicious Lesions Extremities: Present: Edema (To left upper extremity), +1 Edema (Right lower extremity), +2 Edema (Left lower extremity). Absent: Normal Gait Result/EKG - Labs CBC & BMP: 09/23/16 04:56 09/23/16 04:56 Lab Results: I have reviewed the past 24 hour labs Labs: Laboratory Results - last 24 hr 09/22/16 09/23/16 09/23/16 08:32 04:56 04:56 WBC 12.4 H RBC 3.67 L Hgb 9.3 L Hct 30.6 L MCV 83.4 L MCH 25 L MCHC 30.4 L RDW 16.5 Plt Count 306 D MPV 11.0 Neut % (Auto) 82.1 H Lymph % (Auto) 9.5 L Robertson % (Auto) 6.8 Eos % (Auto) 0.0 Baso % (Auto) 0.1 Neut # (Auto) 10.2 H Lymph # (Auto) 1.2 L Robertson # (Auto) 0.8 Eos # (Auto) 0.0 Baso # (Auto) 0.0 Immature Gran % 1.5 Nucleated RBC % 0.0 Immature Gran # 0.18 Nucleated RBCs # 0.00 INR PT Patient/Control Mix Sodium Potassium Chloride Carbon Dioxide Anion Gap BUN Creatinine GFR Calculation BUN/Creatinine Ratio Glucose Calculated Osmolality Calcium Magnesium Vancomycin Trough 36.5 H Random Vancomycin 23.1 09/23/16 09/23/16 04:56 04:56 WBC RBC Hgb Hct MCV MCH MCHC RDW Plt Count MPV Neut % (Auto) Lymph % (Auto) Robertson % (Auto) Eos % (Auto) Baso % (Auto) Neut # (Auto) Lymph # (Auto) Robertson # (Auto) Eos # (Auto) Baso # (Auto) Immature Gran % Nucleated RBC % Immature Gran # Nucleated RBCs # INR 1.4 PT Patient/Control Mix 14.6 D Sodium 141 Potassium 3.8 Chloride 96 L Carbon Dioxide 37 H Anion Gap 11.8 BUN 35 H Creatinine 1.20 H GFR Calculation 52 BUN/Creatinine Ratio 29.00 H Glucose 149 H Calculated Osmolality 291.3 Calcium 8.1 L Magnesium 2.2 Vancomycin Trough Random Vancomycin - EKG EKG results: interpreted by me EKG shows: atrial fibrillation Quality Measures - Stroke Symptom Onset Unknown: No I, Sparkle Bustamante MD, personally performed the services described in this documentation, ascribed by Anne Burr RN in my presence, and it is both accurate and complete [id number] .
--- NOTE | 2016-09-23 13:41 | Hospitalist Progress Note ---
Assessment and Plan (1) Chronic kidney disease Status: Chronic Current Visit: No (2) Generalized anxiety disorder Status: Chronic Current Visit: No (3) Suspected sleep apnea Status: Acute Assessment and plan: No significant sleep apnea per recent sleep study. Current Visit: No (4) Diastolic CHF Status: Acute Assessment and plan: Lasix 40 IV BID Current Visit: No Qualifiers: Congestive heart failure chronicity: acute on chronic Qualified Code(s): I50.33 - Acute on chronic diastolic (congestive) heart failure (5) Asthma with exacerbation Status: Acute Assessment and plan: Continue duonebs, steroids, antibiotics, supplemental oxygen Pulmonary managing Current Visit: No (6) Anticoagulant long-term use Status: Chronic Current Visit: Yes (7) Microcytic anemia Status: Acute Assessment and plan: H/H is at her baseline per chart review Iron deficiency, start replacement Current Visit: Yes Hospitalist: Subjective Interval history: No acute events overnight. Patient continues to make slow progress. She reports that her breathing is ok until she moves. Encouraged her to get up and sit in the chair. She says that she is too sob. Exam - Constitutional Vitals: Period Temp Pulse Resp BP Sys/Casey Pulse Ox Last 24 Hr 96.7 F-98.2 F 60-88 16-20 125-154/57-86 90-100 General appearance: over weight - Head Head exam: Present: normocephalic, atraumatic - Eye Eye exam: Present: EOMI Pupils: Present: GIGI - ENT ENT exam: Present: normal exam - Neck Neck exam: Present: normal inspection - Respiratory Respiratory exam: Present: rhonchi, wheezes, other (coarse breath sounds) - Cardiovascular Cardiovascular exam: Present: regular rate and rhythm - GI/Abdominal GI/Abdominal exam: Present: normal bowel sounds, soft. Absent: tenderness, rebound - Extremities Exam Extremities exam: Present: normal inspection - Back Exam Back exam: Present: normal inspection - Neurological Exam Neurological exam: Present: alert, oriented X3 - Psychiatric Psychiatric exam: Present: normal affect, normal mood - Skin Skin exam: Present: warm, intact Results - Labs CBC & BMP: 09/23/16 04:56 09/23/16 04:56 Quality Measures - Stroke Symptom Onset Unknown: No
[2016-09-23] MEDS: VANCOMYCIN INJ 1,500 MG in SODIUM CHLORIDE 0.9% 500 ML IV SCH (16:06)
[2016-09-23] MEDS: WARFARIN 3 MG TABLET PO SCH (17:23)
[2016-09-23] MEDS: GLYCERIN ADULT SUPP RECTAL PRN (21:16)
[2016-09-23] MEDS: ACETAMINOPHEN 325 MG TABLET PO PRN (23:22)
[2016-09-24] MEDS: ALBUTEROL/IPRATROPIUM 3 ML NEB RESP TX SCH ×4 (00:30→20:06)
[2016-09-24] MEDS: clonazePAM 0.5 MG TABLET PO PRN (03:08)
[2016-09-24 07:27] LABS: Basophils % 0.1 % (0.0-0.8); Hematocrit 30.9 VOL% (35.7-47.0); Hemoglobin 9.4 GM/DL (12.0-16.0); Immature Granulocytes % 1.6 %; Immature Granulocytes Absolute 0.22 #; Lymphocytes # 1.5 10*3/uL (1.4-4.0); Lymphocytes % 10.7 % (21.3-54.2); Mean Corpuscular HGB Conc 30.4 GM/DL (32-36); Mean Corpuscular Hemoglobin 25 PG (27-34); Mean Corpuscular Volume 83.3 FL (87-102); Mean Platelet Volume 11.2 FL (9.6-12.0); Monocytes # 1.4 10*3/uL (0.11-0.8); Monocytes % 9.7 % (1.7-12.7); Neutrophils # 11.1 10*3/uL (1.4-7.4); Neutrophils % 77.9 % (38.7-73.9); Platelet Count 310 T/CUMM (130-400); Red Blood Count 3.71 MC/CUMM (3.8-5.5); Red Cell Distribution Width 16.9 % (9.3-17.3); White Blood Count 14.2 T/CUMM (4-12)
[2016-09-24 07:55] LABS: Calcium 8.1 MG/DL (8.5-10.1); Magnesium 2.2 MG/DL (1.8-2.4); Osmolality,Calculated 288.3 MOS/KG (273-304); Potassium 3.7 MMOL/L (3.5-5.1)
[2016-09-24] MEDS: LEVOFLOXACIN 500 MG TABLET PO SCH (09:51)
[2016-09-24] MEDS: FERROUS SULFATE 325 MG TABLET PO SCH ×2 (09:51→20:34)
[2016-09-24] MEDS: POTASSIUM CHLORIDE 20 MEQ TABLET PO SCH (09:51)
[2016-09-24] MEDS: FUROSEMIDE 40 MG TABLET PO SCH (09:51)
[2016-09-24] MEDS: predniSONE 20 MG TABLET PO SCH (09:51)
[2016-09-24] MEDS: DRONEDARONE 400 MG TABLET PO SCH ×2 (09:51→20:32)
[2016-09-24] MEDS: METOPROLOL TARTRATE 25 MG TABLET PO SCH ×2 (09:52→20:34)
[2016-09-24] MEDS: PANTOPRAZOLE 40 MG TABLET PO SCH ×2 (09:52→20:33)
[2016-09-24] MEDS: BUDESONIDE/FORMOTEROL 160-4.5 INHALER 6 GM INH SCH ×2 (09:55→20:35)
[2016-09-24] MEDS: NYSTATIN 500,000 UNIT/5 ML UDCUP SWISH/SWAL SCH ×5 (13:54→20:34)
--- NOTE | 2016-09-24 14:33 | Cardiology Progress Note ---
Assessment and Plan (1) Anticoagulant long-term use Status: Chronic Current Visit: Yes (2) COPD exacerbation Status: Acute Current Visit: Yes (3) Edema of both legs Status: Chronic Current Visit: Yes (4) A-fib Status: Chronic Current Visit: Yes Qualifiers: Atrial fibrillation type: paroxysmal Qualified Code(s): I48.0 - Paroxysmal atrial fibrillation (5) Shortness of breath Status: Acute Current Visit: Yes (6) Microcytic anemia Status: Acute Current Visit: Yes Cardiology - PN: Subj Interval history: Vascular Surgery Physician: Dr. Roach SUMMARY: Ms. Sapp is a 75 year old female who is routinely followed by Dr. Roach with a history of paroxysmal atrial fibrillation, chronic diastolic heart failure, Parkinson's disease, morbid obesity, pulmonary embolism, esophageal stricture, and hypertension. Surgical history includes pacemaker, abdominal surgery, and hysterectomy. She reports she was using oxygen intermittently up until about 2 months ago, since then she now requires it continuously. She was admitted to the hospital now with a COPD exacerbation, shortness of breath. Also complains of edema, asymmetrical that is worse on the left than the right, which is chronic for her. She had a limited low probability lung scan. Venous Doppler negative for DVT of upper or lower extremities. EKG on admission is officially interpreted as atrial fibrillation , however it is actually a very regular narrow complex rhythm with a lot of baseline artifact and may represent sinus rhythm. Telemetry shows sinus rhythm. She is anticoagulated on warfarin. 09/20/2016: Ms. Sapp is seen resting in bed no acute distress. Oxygen use via nasal cannula, she continues to be short of breath but states it is improving. She denies any chest pain. She reports she feels as if her heart rate has been elevated, she states she feels it in her back. avionics systems repairer currently shows atrial fibrillation with heart rates in the 80s. Sleep medicines saw her in consultation yesterday and reported that she recently had undergone sleep study and did not have any significant sleep apnea. We changed her from metoprolol to Bystolic in hopes of improving her wheezing. In general she really likes her Lopressor and would like to be changed back, we discussed giving it another day. She believes that the Lopressor also helps with her tremors and the sense of her heart pounding in her back. 09/21/2016: Ms. Sapp is without complaint today except complaining regarding her tremors. She states she is less short of breath than yesterday. She wishes to change back to her Lopressor because she believes this helps her tremors as well as being control her palpitations. She continues to be in atrial fibrillation with heart rates in the 80s. 09/22/2016: Ms. Sapp denies any chest pain this morning. She states she is less short of breath and feels like her congestion has improved. Yesterday we changed her Bystolic back to Lopressor because she said that it helped with her tremors. This morning she states that her tremors have improved some. 09/23/2016: Ms. Sapp denies any chest pain this morning. She says her breathing has improved, but she has not gotten up yet this morning. Vital signs are stable throughout the night. avionics systems repairer currently shows atrial fibrillation with heart rates in the 60s. She reports her tremors have continued to improve. September 24, 2016: Overall her clinical condition is unchanged, she believes that she is improving but is not ready to get off of her IV medications. She continues to have an occasional paroxysmal atrial fibrillation but is in sinus rhythm currently, and her paroxysms are rate controlled. Assessment and plan: 1. Shortness of breath-this is multifactorial including COPD exacerbation, deconditioning, chronic anemia. This seems to be predominantly due to her underlying pulmonary condition. We tried changing her beta-adriana to Bystolic but the patient prefers metoprolol so she was changed back. 2. Atrial fibrillation-this is paroxysmal and appears to be currently rhythm controlled, she is on chronic anticoagulation. She has a tremor in telemetry shows several episodes of artifact, likely related to her tremor. She has had some atrial fibrillation now seen on the monitor, but is rate controlled and she is already anticoagulated. 3. Anticoagulant long-term use for both atrial fibrillation and recent pulmonary embolism. 4. COPD exacerbation-lung exam is consistent with this. We have changed her Bystolic back to Lopressor per patient's request because the Lopressor seems to help her tremors. 5. Bilateral lower extremity asymmetrical edema-this is a chronic finding. There may be an element of cor pulmonale which contributes that she did have right-sided chamber enlargement on her more recent echocardiogram. She is described as having congestive heart failure, however her BNP is less than 400 which would be nonspecific for heart failure. She has normal systolic function and no significant valvular heart disease. 6. Microcytic anemia-we will follow her hemoglobin levels. Her cardiac status has been stable, I am going to sign off. If any dynamic changes occur please feel free to reconsult us. Exam (Progress Note) - Constitutional Vitals: Period Temp Pulse Resp BP Sys/Casey Pulse Ox Last 24 Hr 96.5 F-97.6 F 60-88 16-26 109-135/51-63 94-99 Result/EKG - Labs CBC & BMP: 09/24/16 06:40 09/24/16 06:40 Labs: Laboratory Results - last 24 hr 09/24/16 09/24/16 06:40 06:40 WBC 14.2 H RBC 3.71 L Hgb 9.4 L Hct 30.9 L MCV 83.3 L MCH 25 L MCHC 30.4 L RDW 16.9 Plt Count 310 MPV 11.2 Neut % (Auto) 77.9 H Lymph % (Auto) 10.7 L [place] % (Auto) 9.7 Eos % (Auto) 0.0 Baso % (Auto) 0.1 Neut # (Auto) 11.1 H Lymph # (Auto) 1.5 [place] # (Auto) 1.4 H Eos # (Auto) 0.0 Baso # (Auto) 0.0 Immature Gran % 1.6 Nucleated RBC % 0.0 Immature Gran # 0.22 Nucleated RBCs # 0.00 Sodium 141 Potassium 3.7 Chloride 97 L Carbon Dioxide 38 H Anion Gap 9.7 BUN 36 H Creatinine 1.10 H GFR Calculation 58 BUN/Creatinine Ratio 32.00 H Glucose 102 Calculated Osmolality 288.3 Calcium 8.1 L Magnesium 2.2 Quality Measures - Stroke Symptom Onset Unknown: No
[2016-09-24] MEDS: GLYCERIN ADULT SUPP RECTAL PRN (14:47)
[2016-09-24] MEDS ORDERED: FUROSEMIDE 40 MG/4 ML VIAL ONE (14:57)
[2016-09-24] MEDS: FUROSEMIDE 40 MG/4 ML VIAL IV SCH (14:59)
--- NOTE | 2016-09-24 15:08 | Hospitalist Progress Note ---
Assessment and Plan (1) History of esophageal stricture Status: Acute Assessment and plan: Advised to schedule outpatient with Dr. Spicer for GI follow-up for this and other GI issues. Possible oral candidiasis, start nystatin swish and swallow 4 times daily. Current Visit: No (2) A-fib Status: Chronic Assessment and plan: Currently rhythm controlled and on chronic anticoagulation. Cardiology has seen , see note, appreciate their assistance. Current Visit: Yes Qualifiers: Atrial fibrillation type: paroxysmal Qualified Code(s): I48.0 - Paroxysmal atrial fibrillation (3) Diastolic CHF Status: Acute Assessment and plan: She continues to have shortness of breath, change p.o. Lasix 40 mg p.o. twice daily to Lasix 40 mg IV twice daily. Current Visit: No Qualifiers: Congestive heart failure chronicity: acute on chronic Qualified Code(s): I50.33 - Acute on chronic diastolic (congestive) heart failure (4) COPD exacerbation Status: Acute Assessment and plan: Patient has continued shortness of breath, continue DuoNeb treatment and steroids. Pulmonology following and appreciate assistance. Will require daily chronic home medicines and pulmonary follow-up. Current Visit: Yes (5) Shortness of breath Status: Acute Assessment and plan: See plan from conditions above. Current Visit: Yes Hospitalist: Subjective Interval history: Patient lying comfortably in bed, with no acute events overnight, she states that she continues to be short of breath. She states she has an extensive history of PEs and peripheral emboli. She states that she continues to have some abdominal discomfort and has a history of GI issues with some possible slowed gastric emptying. She has seen Dr. Spicer in the past but it has been several years. She remains afebrile and blood cultures are negative. She states that she does have some pain and soreness in her oral cavity and throat with a history of oral candidiasis. Patient remains afebrile. Patient denies nausea, vomiting, chest pain, diarrhea or pain in her lower extremities. Exam - Constitutional Vitals: Period Temp Pulse Resp BP Sys/Casey Pulse Ox Last 24 Hr 96.5 F-97.6 F 60-88 16-26 109-135/51-63 94-99 General appearance: morbidly obese - Head Head exam: Present: normal inspection - Eye Eye exam: Present: EOMI Pupils: Present: GIGI - Respiratory Respiratory exam: Present: wheezes (Bilateral wheezing in all lung jim) - Cardiovascular Cardiovascular exam: Present: regular rate and rhythm - GI/Abdominal GI/Abdominal exam: Present: normal bowel sounds, soft - Extremities Exam Extremities exam: Present: edema (+2 edema) - Neurological Exam Neurological exam: Present: alert, oriented X3, CN II-XII intact - Psychiatric Psychiatric exam: Present: normal affect, normal mood - Skin Skin exam: Present: normal color, warm Results - Labs CBC & BMP: 09/24/16 06:40 09/24/16 06:40 Quality Measures - Stroke Symptom Onset Unknown: No
[2016-09-24] MEDS: WARFARIN 3 MG TABLET PO SCH (18:02)
[2016-09-24] MEDS: ACETAMINOPHEN 325 MG TABLET PO PRN (20:33)
[2016-09-25] MEDS: clonazePAM 0.5 MG TABLET PO PRN ×2 (00:13→21:13)
[2016-09-25] MEDS: ALBUTEROL/IPRATROPIUM 3 ML NEB RESP TX SCH ×4 (00:51→19:37)
[2016-09-25] MEDS: FUROSEMIDE 40 MG/4 ML VIAL IV SCH (08:58)
[2016-09-25] MEDS: PANTOPRAZOLE 40 MG TABLET PO SCH ×2 (08:59→21:06)
[2016-09-25] MEDS: METOPROLOL TARTRATE 25 MG TABLET PO SCH ×2 (08:59→21:07)
[2016-09-25] MEDS: BUDESONIDE/FORMOTEROL 160-4.5 INHALER 6 GM INH SCH ×2 (08:59→21:12)
[2016-09-25] MEDS: POTASSIUM CHLORIDE 20 MEQ TABLET PO SCH (08:59)
[2016-09-25] MEDS: predniSONE 20 MG TABLET PO SCH (08:59)
[2016-09-25] MEDS: DRONEDARONE 400 MG TABLET PO SCH ×2 (08:59→21:06)
[2016-09-25] MEDS: NYSTATIN 500,000 UNIT/5 ML UDCUP SWISH/SWAL SCH ×4 (08:59→21:07)
[2016-09-25] MEDS: LEVOFLOXACIN 500 MG TABLET PO SCH (08:59)
[2016-09-25] MEDS: FERROUS SULFATE 325 MG TABLET PO SCH (08:59)
--- NOTE | 2016-09-25 13:30 | Hospitalist Progress Note ---
Assessment and Plan (1) Bacteremia Status: Acute Assessment and plan: two weeks of IV vancomycin from 09/19, will make referral to tin at sons request. PICC line in am Current Visit: No (2) Pulmonary hypertension Status: Acute Assessment and plan: right sided heart failure, will decrease diuretics as they will decrease preload , echo showed PAP 42, EF 65% Current Visit: Yes (3) COPD exacerbation Status: Acute Assessment and plan: pearl, pulmonary seeing pt, cont prednisone and oxygen, po levaquin, Dr. Cruz has seen patient and does not feel she has significant GILSON Current Visit: Yes (4) Morbid obesity Status: Acute Assessment and plan: needs to lose weight Current Visit: Yes (5) A-fib Status: Chronic Assessment and plan: multitaq and subtherpeutic on coumadin, stat INR Current Visit: Yes Qualifiers: Atrial fibrillation type: paroxysmal Qualified Code(s): I48.0 - Paroxysmal atrial fibrillation (6) Edema of both legs Status: Chronic Assessment and plan: due to right sided heart failure from pulmonary htn Current Visit: Yes (7) Chronic kidney disease Status: Chronic Assessment and plan: will worsen with lasix, decrease Current Visit: No (8) Microcytic anemia Status: Acute Assessment and plan: cont protonix Current Visit: Yes (9) SOB (shortness of breath) on exertion Status: Acute Assessment and plan: VQ negative, no evidence of DVT, no CHF per cardiology, Has copd and is a retainer, abg, decrease oxygen to 1/2 liter. Does not have evidence of pneumonia. Current Visit: Yes Hospitalist: Subjective Interval history: Spoke with Jorge patient's son. Patient is not really getting out of bed and walking anymore. She has had extended hospital stays for pneumonia. She also reports a history of DVTs and PEs. VQ scan was negative. Venous Dopplers negative for DVT. Patient does not seem motivated to get well. Asked her to get up and sit in a chair today and she does not want to. She is short of breath with any activity. She is morbidly obese but denies a history of sleep apnea. She reports she has been tested by Dr. Cruz. Patient refuses to go back to the swing bed or in a alf. She has a lot of care for the family but they have agreed to continue to care for her at this time. She clearly has no evidence of pneumonia even though she thinks that she does. I have spoke to the lab and her cultures are not back yet. Exam - Constitutional Vitals: Period Temp Pulse Resp BP Sys/Casey Pulse Ox Last 24 Hr 97.4 F-98.8 F 65-84 16-22 105-161/49-99 90-99 Exam: Heart Rate-[RRR] Lungs-[Clear but diminished and tight] GI-[+bs soft, NT, obese] Ext-[trace edema] Neuro [could not evaluate as patient didnt want to get out of bed , [alert and oriented times 3] psych [depressed mood and flat affect] General [no acute distress] Results - Labs CBC & BMP: 09/24/16 06:40 09/24/16 06:40 Lab Results: I have reviewed the past 24 hour labs Labs: Blood cultures from September 18, 2016 growing gram-positive rods, identity pending. Blood repeat blood cultures from September 19, 2016 and September 21, 2016. - Diagnostic Findings Procedure: Ultrasound: report reviewed by me (No DVT on ultrasound, echocardiogram from August 05, 2016 shows an EF of 65%), X-ray: report reviewed by me (VQ scan negative) Quality Measures - Stroke Symptom Onset Unknown: No
[2016-09-25 13:54] LABS: INR 1.5; PT Patient Result 16.6 SECS
[2016-09-25] MEDS: VANCOMYCIN INJ 1,500 MG in SODIUM CHLORIDE 0.9% 500 ML IV SCH (14:43)
--- NOTE | 2016-09-25 14:47 | XRay Report ---
History: Shortness of breath Date: 09/25/2016 Study: Chest x-ray AP portable Comparison exam: September 19, 2016 There is continued cardiomegaly. There is no mediastinal mass. The pulmonary vasculature is upper normal. There is a rounded density in the retrocardiac region compatible with a hiatal hernia. There is some minor strandy subsegmental atelectasis in the right lung base. There is no alisha consolidated pneumonia, though evaluation of the left retrocardiac region is difficult because of technique and patient size. A left subclavian multiple lead transvenous pacemaker device is intact and generally unchanged. Osseous structures are similar. Impression: Mild increased subsegmental atelectasis in the right lung base compared to the previous study. Otherwise unchanged. Stable cardiomegaly. Pacemaker PROCEDURE INTERPRETED AT [facility] DEPARTMENT OF RADIOLOGY Final Report Signed by: Dr. Angelica Hitchcock
[2016-09-25 15:10] LABS: ABG Base Excess 14.1 MMOL/L (-2.5-2.5); ABG HCO3 37.8 MMOL/L (20-26); ABG Oxygen Saturation 90.7 % (95-100); ABG PCO2 55.5 MM HG (35-48); ABG PO2 58.2 MM HG (80-95); ABG TCO2 36.1 MMOL/L (23-27); Allen Test Positive
[2016-09-25] MEDS ORDERED: WARFARIN 2.5 MG TABLET PO SCH (18:00)
[2016-09-25] MEDS: ACETAMINOPHEN 325 MG TABLET PO PRN (21:06)
[2016-09-26] MEDS: ALBUTEROL/IPRATROPIUM 3 ML NEB RESP TX SCH ×3 (00:18→12:00)
[2016-09-26 06:43] LABS: INR 1.5; PT Patient Result 16.7 SECS
--- NOTE | 2016-09-26 08:18 | Post Interventional Procedure ---
Pre-op diagnosis: Pneumonia Post-op diagnosis: same Procedure: PICC RUE Flouroscopy: 0.1 min Radiologist: Nithin Corera Anesthesia: local Specimens: none sent Estimated blood loss: none Complications: none Condition: stable Assessment and Plan - Time spent with patient Time spent with patient: Less than 30 minutes
[2016-09-26] MEDS: POTASSIUM CHLORIDE 20 MEQ TABLET PO SCH (08:35)
[2016-09-26] MEDS: METOPROLOL TARTRATE 25 MG TABLET PO SCH (08:35)
[2016-09-26] MEDS: PANTOPRAZOLE 40 MG TABLET PO SCH (08:35)
[2016-09-26] MEDS: LEVOFLOXACIN 500 MG TABLET PO SCH (08:35)
[2016-09-26] MEDS: predniSONE 20 MG TABLET PO SCH (08:35)
[2016-09-26] MEDS: NYSTATIN 500,000 UNIT/5 ML UDCUP SWISH/SWAL SCH ×2 (08:35→14:09)
[2016-09-26] MEDS: BUDESONIDE/FORMOTEROL 160-4.5 INHALER 6 GM INH SCH (08:36)
[2016-09-26] MEDS ORDERED: FUROSEMIDE 40 MG/4 ML VIAL IV SCH (09:00)
--- NOTE | 2016-09-26 09:14 | Interventional Radiology Rpt ---
IR PICC line insertion, US guide vascular access Indication: Pneumonia. Long-term IV antibiotics. PICC LINE Description: A formal timeout was performed. Maximum sterile barrier technique was used. Sonographic evaluation of the right upper extremity demonstrates patent and compressible basilar vein. The upper arm was prepped and draped in sterile fashion. 3 cc 1% lidocaine was administered subcutaneously. Under sonographic guidance, a micropuncture needle was advanced into the vein. A captured sonographic image documents the position of the needle. Needle was exchanged over a wire for a peel-away sheath. A dual lumen power PICC, cut to 43 cm, was advanced over the wire until the tip was at the RA-SVC junction. The position of the catheter was confirmed with fluoroscopic guidance and an image stored in PACS. The wire and sheath were removed. Both ports of the PICC were aspirated and flushed with heparinized saline. The device was secured with a StatLock. Fluoroscopy: 0.1 minute. Impression: PICC line ready for immediate use. Routine catheter care. PROCEDURE INTERPRETED AT [facility] DEPARTMENT OF RADIOLOGY Final Report Signed by: Nithin Correa M.D.
--- NOTE | 2016-09-26 10:40 | Discharge Summary ---
Hospital Course - Hospital Course Hospital Course: 75-year-old morbidly obese female with a history of COPD and atrial fib and pulmonary emboli presents to the emergency room with shortness of breath. Patient has been rather sick and had pneumonia while she was over at the swing bed and never really recovered. Patient is obsessed with the idea that she has pneumonia however chest x-ray showed no evidence of pneumonia but she was treated for a COPD exacerbation. Dr. Car Phelps was consulted and she was given duo nebs, steroids and IV Levaquin. Blood cultures 2 grew out Corynebacterium and Dr. Gallagher was consulted. Repeat blood cultures were negative no growth 4. Dr. Gallagher recommended IV penicillin and IV vancomycin for a total of 2 weeks through October 05. Patient currently has a history of atrial fib and is on Multitaq which is keeping her fairly well controlled. Patient has a lot of edema in her legs not due to the fact that she has congestive heart failure as Dr. Bustamante feels that is just right-sided heart failure due to high pulmonary pressures. Her last echocardiogram was in July 2016 with an EF of 65% and PAP of 42 patient was started on diuretics but we do not want to decrease her preload pressure with her having pulmonary hypertension. Patient is not very functional at home and is mainly confined herself to bed. She does not make a lot of effort to be active and expects her family to just take care of her. Her family will be taking her home after her stay in [facility] at her request. Patient could really benefit from some rehab. A PICC line was placed today by Dr. Correa. Patient has chronic kidney disease and microcytic anemia both of which are stable. Patient also has a history of PEs and DVTs. Her VQ scan has been negative and her venous Dopplers were negative for DVT. She is subtherapeutic on her Coumadin and have started her on treatment dose Lovenox until her Coumadin is therapeutic. I increased her Coumadin to 5 mg at bedtime and she needs an INR daily. While on vancomycin patient's renal function and Vanco levels will have to be monitored carefully. Dr. Cruz has evaluated her for sleep apnea and feels she has a small component of sleep apnea but are not enough to warrant treatment. She will be transferred to [facility] today and we thank them for their help. - Time spent with patient Time with patient DS: Greater than 30 minutes (60 min) Diagnosis - Discharge Diagnosis (1) Bacteremia Status: Acute (2) Pulmonary hypertension Status: Acute (3) COPD exacerbation Status: Acute (4) Morbid obesity Status: Chronic (5) A-fib Status: Chronic (6) Edema of both legs Status: Chronic (7) Chronic kidney disease Status: Chronic (8) Microcytic anemia Status: Chronic (9) SOB (shortness of breath) on exertion Status: Acute Discharge Plan - Discharge Data Disposition: Disch/Xfer-[facility] Term Hos Condition at Discharge: Stable Discharge Diet: heart healthy, low fat, low cholesterol, low salt diet Activity: resume usual activities as tolerated Hygiene: no restrictions Weight Bearing at Discharge: full weight bearing - Discharge Medications New Acetaminophen Tab [Tylenol Tab] 650 mg PO Q4H PRN tablet PRN Reason: Fever, Headache, Mild Pain Albuterol Neb [Proventil Neb] 2.5 mg RESP TX RT Q4H PRN PRN Reason: Shortness Of Breath/Wheezing Budesonide/Formoterol 160-4.5 [Symbicort 160-4.5] 2 puff INH BID inhaler Enoxaparin [Lovenox] 100 mg SUBCUT Q12H 4 Days Glycerin Adult Supp 1 supp RECTAL PRN PRN supp PRN Reason: Constipation Levofloxacin Tab [Levaquin Tab] 500 mg PO DAILY tablet predniSONE TAB [PredniSONE] 20 mg PO DAILY tablet Warfarin [Coumadin] 5 mg PO 1800 tablet Albuterol/Ipratropium Neb [Duoneb] 3 ml RESP TX RT Q6H guaiFENesin ER TAB [Mucinex] 600 mg PO BID tablet Vancomycin Inj 1,500 mg IV Q48H vial Penicillin G Potassium Inj 2,000,000 unit IV Q4H vial Continue Omeprazole [Prilosec] 20 mg PO BID Metoprolol Tartrate 25 mg PO BID Dronedarone [Multaq] 400 mg PO BID Potassium Chloride 20 meq PO DAILY Furosemide Tab [Lasix Tab] 40 mg PO DAILY #60 tablet Discontinued Warfarin [Coumadin] 3 mg PO MOWEFRSA clonazePAM TAB [KlonoPIN] 0.5 mg PO DAILY PRN PRN Reason: Anxiety Meperidine Tab [Demerol Tab] 50 mg PO Q6H #10 tablet Warfarin [Coumadin] 1.5 mg PO SUTUTH Methocarbamol Tab [Robaxin Tab] 750 mg PO TID PRN PRN Reason: Pain Albuterol/Ipratropium Neb [Duoneb] 3 ml RESP TX RT Q4H predniSONE TAB [PredniSONE] 5 mg PO DIRECTED Ferrous Sulfate Tab [Feosol Original Tab] 325 mg PO BID #60 tablet - Follow Up or Referral - Forms/Instructions Additional Discharge Instructions: 1) Dr Gallagher to follow patient. 2) Picc line placed today. 3) Keep vancomycin trough levels between 15-20, Vanco level before 3 pm dose tomorrow. 4) Stop lovenox when INR therapeutic, check INR daily. 5) continue IV PCN and Vanco through October 05, check renal function biweekly Exam - Constitutional Vitals: Period Temp Pulse Resp BP Sys/Casey Pulse Ox Last 24 Hr 97.2 F-98.6 F 62-97 16-20 115-149/50-76 94-99 General appearance: normal weight, no acute distress - Respiratory Respiratory exam: Present: decreased breath sounds, wheezes. Absent: rhonchi - Cardiovascular Cardiovascular exam: Present: regular rate and rhythm, tachycardia. Absent: systolic murmur - GI/Abdominal GI/Abdominal exam: Present: normal bowel sounds, rebound. Absent: mass - Neurological Exam Neurological exam: Present: alert, oriented X3 Discharge Results Procedures and tests throughout hospitalization: Pending Orders 09/18/16 06:31 Blood Culture Stat 09/27/16 04:00 Prothrombin Time INR IN AM 09/27/16 14:30 Vancomycin,Trough Timed Labs on day of discharge: Labs from last 24 hours 09/26/16 09/25/16 09/25/16 05:59 13:49 13:37 INR 1.5 PT Patient/Control Mix 16.7 ABG pH 7.470 H ABG pCO2 55.5 H ABG pO2 58.2 L ABG HCO3 37.8 H ABG Total CO2 36.1 H ABG O2 Saturation 90.7 L ABG Base Excess 14.1 H FiO2 22.00 B-Natriuretic Peptide 123 H 09/25/16 13:37 INR 1.5 PT Patient/Control Mix 16.6 ABG pH ABG pCO2 ABG pO2 ABG HCO3 ABG Total CO2 ABG O2 Saturation ABG Base Excess FiO2 B-Natriuretic Peptide Preliminary micro results at discharge 09/18/16 06:31 Blood Culture - Preliminary Blood Gram Positive Cocci Corynebacterium species 09/18/16 06:14 Blood Culture - Preliminary Blood Corynebacterium species DS: Provider Date of admission: 09/18/16 08:29 Primary care physician: . No PCP Attending physician on admission: Odessa Garcia MD Consults: 09/18/16 11:26 Consult to Physician [CONS] Routine Comment: Consulting Provider: Aamir Phelps Person Notified: Date Notified: 09/18/16 Time Notified: 10:32 Consult Notification Comment: 09/18/16 14:04 Consult to Physician [CONS] Routine Comment: in AM Consulting Provider: Consult to Specialist Group: Cardiology When should Consulting Provider be notified: In am Person Notified: CARMEN Date Notified: 09/19/16 Time Notified: 07:51 09/18/16 14:21 Consult to Physician [CONS] Routine Comment: recent sleep study outpatient Consulting Provider: Gayatri Cruz When should Consulting Provider be notified: In am Person Notified: danelle Date Notified: 09/19/16 Time Notified: 14:04 09/19/16 10:53 Consult to Occupational Therapy [CONS] Routine Reason for Occupational Therapy: Evaluate and Treat Consult to Physical Therapy [CONS] Routine Reason for Physical Therapy: Evaluate and Treat Consult Comment: evaluate for walking equiqment 09/19/16 13:56 Consult to Pharmacy [CONS] Routine Reason for Pharmacy Consult: Dose/Manage Vancomycin 09/25/16 13:21 Consult to Case Mgmt/Social Srvs [CONS] Routine Reason for Case Mgmt/Social Srvs: LTAC Consult Comment: will home IV abx, discharge planned for monday. Consult to Pharmacy [CONS] Routine Reason for Pharmacy Consult: Other Comment: manage coumadin 09/26/16 08:01 Consult to Physician [CONS] Routine Comment: Consulting Provider: Eleanor Jenkins Person Notified: MD MAE Date Notified: 09/26/16 Time Notified: 08:40 Discharging clinician: Ida Borjas MD
--- NOTE | 2016-09-26 10:40 | Infectious Disease Consult ---
History of Present Illness Chief complaint: Positive blood cultures History of present illness: Ms. Sapp is a 75 year old female With history of recurrent admissions to hospital for pneumonia. She presented to hospital on 18 September with difficulty breathing. She was quite short of breath decreased exercise tolerance and even getting quite out of breath with speaking. She noticed a few days before increased postnasal drainage. She was also coughing but not more than usual and no significant sputum production, no hemoptysis. No pleuritic chest pain. Patient has not had any fever throughout all this. She says this is her fifth time being admitted to hospital for pneumonia. Blood cultures done on admission came back positive for corynebacterium species and I am asked to assist with management. The patient is currently on vancomycin and levofloxacin. She has not had a PICC line or central line since last October. Impression: 1. Corynebacterium septicemia 2. Lower respiratory tract infection - suspect bronchitis rather than pneumonia as I did not appreciate consolidation. Suspect that her respiratory tract infection is the source of the corynebacterium septicemia. 3. Chronic kidney disease, so far stable on vancomycin 4. Morbid obesity Recommendations: 1. Agree with empiric vancomycin for the corynebacterium species. Monitor renal function very closely on this drug as well as from vancomycin trough levels. Glucose vancomycin trough is 15-20. 2. I am also going to add penicillin to which corynebacterium should be susceptible. 3. Spoke with micro lab and they have sent of the isolate for susceptibility testing. There are gram-positive cocci in clusters in 1 of the 2 sets of blood cultures but this is not growing states probably a contaminant. 4. Patient will continue antibiotic therapy for 2 weeks from date of negative culture, so until October 05. Antibiotics can be de-escalated if possible, depending on final susceptibility results. Thank you very much for the consult. Will follow again on Monday. Discussed with Dr. Borjas. Home Medications Medication Instructions Recorded Confirmed Type Metoprolol Tartrate 25 mg PO BID 09/12/14 09/18/16 History Omeprazole [Prilosec] 20 mg PO BID 09/12/14 09/18/16 History Dronedarone [Multaq] 400 mg PO BID 03/16/15 09/18/16 History Potassium Chloride 20 meq PO DAILY 10/24/15 09/18/16 History Acetaminophen Tab [Tylenol Tab] 650 mg PO Q4H PRN tablet 09/26/16 Rx Albuterol Neb [Proventil Neb] 2.5 mg RESP TX RT Q4H PRN 09/26/16 Rx Albuterol/Ipratropium Neb [Duoneb] 3 ml RESP TX RT Q6H 09/26/16 Rx Budesonide/Formoterol 160-4.5 2 puff INH BID inhaler 09/26/16 Rx [Symbicort 160-4.5] Enoxaparin [Lovenox] 100 mg SUBCUT Q12H 4 Days 09/26/16 Rx Furosemide Tab [Lasix Tab] 40 mg PO DAILY #60 tablet 09/26/16 09/18/16 Rx Glycerin Adult Supp 1 supp RECTAL PRN PRN supp 09/26/16 Rx Levofloxacin Tab [Levaquin Tab] 500 mg PO DAILY tablet 09/26/16 Rx Vancomycin Inj 1,500 mg IV Q48H vial 09/26/16 Rx Warfarin [Coumadin] 5 mg PO 1800 tablet 09/26/16 Rx guaiFENesin ER TAB [Mucinex] 600 mg PO BID tablet 09/26/16 Rx predniSONE TAB [PredniSONE] 20 mg PO DAILY tablet 09/26/16 Rx Allergies Allergy/AdvReac Type Severity Reaction Status Date / Time clindamycin AdvReac Intermediate Nausea Verified 08/04/16 19:28 hydrocodone AdvReac Intermediate Flushing Verified 08/04/16 19:28 propoxyphene AdvReac Intermediate Flushing Verified 08/04/16 19:28 12 point system: reviewed and no additional remarkable complaints except as stated (Per HPI) Medical,Surgical,& Family Hx - Medical History Cardio: History of: Cardiac Dysrhythmia (a.fib), Hypertension, Pacemaker (left side) Psychological: History of: Anxiety Disorders (TAKES KLONOPIN) HEENT: Comment Only: Eye Problem (DECREASED VISION) Respiratory: History of: Bronchitis, Pulmonary Embolism (In September 2015), Pneumonia, Respiratory Problems (PE) Renal: History of: Renal Failure Gastrointestinal: History of: GERD, Hemorrhoids, GI Problems (tumor--10lbs-jan) Musculoskeletal: History of: Musculoskeletal Problems (Fracture left wrist) Hematology: History of: Anemia No history of: Blood Transfusion Reaction Reproductive: History of: Reproductive Problems (OVARIAN TUMOR REMOVED 2009) Other: History of: Skin Problems (DRY SKIN) - Surgical History Cardiac Surgeries: Sugical HX of: Cardiac Catheterization, Cardiac Surgery ( PACE MAKER), Internal Defibrillator (Pacemaker) HEENT Surgeries: Surgical HX of: Tonsilectomy & Adenoidectomy Abdominal Surgeries: Surgical HX of: Abdominal Surgery, Colonoscopy Reproductive Surgeries: Surgical HX of;: Gynecologic Surgery, Hysterectomy Patient denies;: Genitourinary Surgery Orthopedic Surgeries: Surgical HX of;: Implanted Devices (PACE MAKER) - Family History Family History: Reports;: Family Diabetes (PAT GM,PAT AUNT), Family Heart Disease (father's family, mother-mi, FATHER HAD CABG,AUNT (VALVE REPLACE)), Family Hypertension (father), Family Stroke (PAT AUNT X4,PAT UNCLE X2) Denies;: Family Anesthesia Reaction - Social History Smoking Status: Never smoker Frequency of Alcohol Use: None Type of Drug Use: None Infectious Disease Exam H&P - Constitutional Vitals: Vital Signs Temp Pulse Resp BP Pulse Ox 97.2 F L 75 20 149/76 95 09/26/16 07:35 09/26/16 07:35 09/26/16 07:35 09/26/16 07:35 09/26/16 07:35 Intake and Output 09/25/16 09/26/16 09/26/16 23:59 07:59 15:59 Intake Total 800 / 800 200 / 200 Balance 800 / 800 200 / 200 Intake: IV 500 / 500 Vancomycin Inj 1,000 mg 500 / 500 In Ns 500 ml @ 250 mls/hr IV Q48H MEGAN Rx#: [id number] Oral 300 / 300 200 / 200 Other: Voiding Method Brief Brief # Voids 1 2 # Bowel Movements 0 0 Exam: General: Patient relatively comfortable but chronically ill looking HEENT: Mucous membranes pink and moist, anicteric acyanotic, GIGI, no oral exudates Neck: Supple, no thyroid gland enlargement, no lymphadenopathy Respiratory system: She is a bit tachypneic, breath sounds vesicular, scattered expiratory rhonchi Cardiovascular: Normal S1 and S2, no murmurs appreciated Abdomen: Normal bowel sounds, soft nontender throughout, no organomegaly or mass Genitourinary: No suprapubic pain or bladder distention Extremities: Edema of upper extremities present especially left forearm Skin: No rash Reports - Labs CBC & BMP: 09/24/16 06:40 09/24/16 06:40 Labs: Laboratory Results - last 24 hr 09/25/16 09/25/16 09/25/16 13:37 13:37 13:49 INR 1.5 PT Patient/Control Mix 16.6 ABG pH 7.470 H ABG pCO2 55.5 H ABG pO2 58.2 L ABG HCO3 37.8 H ABG Total CO2 36.1 H ABG O2 Saturation 90.7 L ABG Base Excess 14.1 H FiO2 22.00 B-Natriuretic Peptide 123 H 09/26/16 05:59 INR 1.5 PT Patient/Control Mix 16.7 ABG pH ABG pCO2 ABG pO2 ABG HCO3 ABG Total CO2 ABG O2 Saturation ABG Base Excess FiO2 B-Natriuretic Peptide - Reports Microbiology: Microbiology 09/21/16 04:29 Blood Culture - Final Blood No growth at 5 days 09/21/16 04:29 Blood Culture - Final Blood No growth at 5 days 09/18/16 06:31 Blood Culture - Preliminary Blood Gram Positive Cocci Corynebacterium species 09/18/16 06:14 Blood Culture - Preliminary Blood Corynebacterium species - Diagnostic Findings Procedure: Chest x-ray: image reviewed by me, report reviewed by me (No consolidation appreciated)
[2016-09-26] MEDS: DRONEDARONE 400 MG TABLET PO SCH (10:49)
[2016-09-26] MEDS: GLYCERIN ADULT SUPP RECTAL PRN (14:09)
[2016-09-26] MEDS: PENICILLIN G POTASSIUM INJ 2,000,000 UNIT in SODIUM CHLORIDE 0.9% 100 ML IV SCH ×2 (14:09→15:22)
[2016-09-26] MEDS: ACETAMINOPHEN 325 MG TABLET PO PRN (14:09)
[2016-09-26 15:56] VITALS: BP 112/59
--- NOTE | 2016-09-26 20:25 | Cardiology Progress Note ---
Bhavik Gray Vanessa, RN, am scribing for, and in the presence of, Clark Roach MD 20:21. Assessment and Plan - Time spent with patient Time spent with patient: Greater than 30 minutes (1) Shortness of breath Status: Chronic Assessment and plan: 09/26/16: ASSESSMENT/PLAN: 1. SHORTNESS OF BREATH -etiology of this is multifactorial including COPD exacerbation, physical deconditioning, chronic anemia. Patient is chronically short of breath. Since admission, clinical findings have been negative for pneumonia. However, she has been treated for pneumonia which she feels she has. 2. ATRIAL FIBRILLATION -history of paroxysmal atrial fibrillation. Patient has been in sinus rhythm during admission with intermittent paroxysms of atrial fibrillation, ventricular response has been well controlled. Continue beta- adriana and Multaq. Continue anticoagulation with Coumadin. Monitor INR, 1.5 today. 3. CHRONIC ANTICOAGULATION -patient is anticoagulated chronically for paroxysmal atrial fibrillation and history of having recent PE. 4. MICROCYTIC ANEMIA -H&H yesterday .. 5. COPD EXACERBATION -beta-adriana therapy has been converted back to metoprolol from diastolic per her request as she reports she feels metoprolol seems to help resting tremors. Patient has been evaluated and treated by pulmonary medicine this admission, and she is on appropriate treatment at this time. 6. BILATERAL LOWER EXTREMITY EDEMA -edema is asymmetrical. Bilateral lower extremity edema is chronic. Minimal elevation of BNP at less than 400, normal systolic function without significant valvular heart disease. On most recent echo, patient noted to have right-sided chamber enlargement, but she is not having overt signs or symptoms of congestive heart failure at this time. 7. Chronic respiratory failure-chronic bronchitis or obesity hypoventilation syndrome-her CO2 run slightly high with a slightly low O2. She states she was evaluated for sleep apnea and was in with her PSG was found to be negative---?? Will continue optimal treatment of diastolic heart failure and have her sleep propped up. My suspicion is that her chronic bronchitis/ obesity hypoventilation syndrome and suspected sleep apnea which is untreated results in her recurrent pulmonary infections. (2) A-fib Status: Chronic Assessment and plan: SEE PLAN OF CARE LISTED ABOVE. Qualifiers: Atrial fibrillation type: paroxysmal Qualified Code(s): I48.0 - Paroxysmal atrial fibrillation (3) Microcytic anemia Status: Chronic Assessment and plan: SEE PLAN OF CARE LISTED ABOVE. (4) Morbid obesity Status: Chronic Assessment and plan: SEE PLAN OF CARE LISTED ABOVE. (5) Anticoagulant long-term use Status: Chronic Assessment and plan: SEE PLAN OF CARE LISTED ABOVE. (6) Edema of both legs Status: Chronic Assessment and plan: SEE PLAN OF CARE LISTED ABOVE. Cardiology - PN: Subj Interval history: PRIMARY CUTCH CLEANER: DR. ROACH SUMMARY: Ms. Sapp is a 75 year old female with past medical history of paroxysmal atrial fibrillation, chronic diastolic heart failure, morbid obesity, pulmonary embolism, hypertension, Parkinson's disease, and esophageal stricture patient has had previous pacemaker implantation. She also requires continuous home oxygen. She is chronically anticoagulated with Coumadin. Patient has known history of microcytic anemia, and this has been monitored. Patient was admitted to the hospital with COPD exacerbation, shortness of breath, and she has been treated for pneumonia at this admission. Blood cultures on September 19 with gram-positive cocci, and repeat blood cultures on September 21 negative. VQ lung scan and venous Dopplers have been negative for PE and DVT. During admission, she has also been evaluated by Dr. Cruz and does not have significant evidence for GILSON. September: No significant changes in clinical status. Patient is awake and alert this morning, and she has had PICC line placed earlier this morning. She continues to have moderate shortness of breath with minimal exertion, but she is not very motivated to increase her activity or participate in rehab therapy. Appetite is good. No chest pain. Reports she feels that her shortness of breath continues to improve. As noted above, she is minimally active though. Pulse is overall regular upon exam. Afebrile, systolic BP ranging 115-150 mmHg. Subtherapeutic INR 1.5. Patient is to be transferred to [facility] today for further treatment. Exam (Progress Note) - Constitutional Vitals: Period Temp Pulse Resp BP Sys/Casey Pulse Ox Last 24 Hr 97.2 F-98.2 F 62-97 16-20 110-149/50-76 94-99 Exam: General: Present: Appears Well, No Apparent Distress, Other (Obese, which limits exam) HEENT: Present: PERRL, Mucus Membranes Moist Neck: Present: Supple Neck, Midline Trachea, No Bruit Cardiac: Present: Irregularly Regular, Other (Distant heart tones due to habitus ). Absent: Tachycardia Lungs: Present: Wheezes (Prolonged expiratory wheeze), Oxygen (Via nasal cannula ), No Rales, No Rhonchi Neuro: Present: Resting Tremor Abdomen: Present: Soft, Active Bowel Sounds, No Masses, Non-Tender. Absent: Distended Skin: Absent: Rash, Suspicious Lesions Extremities: Present: Edema (To left upper extremity), +1 Edema (Right lower extremity), +2 Edema (Left lower extremity). Absent: Normal Gait Result/EKG - Labs CBC & BMP: 09/24/16 06:40 09/24/16 06:40 Lab Results: I have reviewed the past 24 hour labs Labs: Laboratory Results - last 24 hr 09/25/16 09/25/16 09/25/16 13:37 13:37 13:49 INR 1.5 PT Patient/Control Mix 16.6 ABG pH 7.470 H ABG pCO2 55.5 H ABG pO2 58.2 L ABG HCO3 37.8 H ABG Total CO2 36.1 H ABG O2 Saturation 90.7 L ABG Base Excess 14.1 H FiO2 22.00 B-Natriuretic Peptide 123 H 09/26/16 05:59 INR 1.5 PT Patient/Control Mix 16.7 ABG pH ABG pCO2 ABG pO2 ABG HCO3 ABG Total CO2 ABG O2 Saturation ABG Base Excess FiO2 B-Natriuretic Peptide - EKG EKG results: interpreted by me, no acute changes EKG shows: sinus rhythm Quality Measures - Stroke Symptom Onset Unknown: No Specialty Discharge - Follow Up or Referrals Follow up with: Clark Roach MD [Physician] - (As is scheduled, I think she will have an appointment within the next 6 months, sooner if needed) I, Clark Roach MD, personally performed the services described in this documentation, ascribed by Nola Gutierres RN in my presence, and it is both accurate and complete .
--- NOTE | 2016-09-26 21:18 | ECHO Report ---
Jacqueline Sapp Exam Date: 09/26/2016 10:33 Referring Physician: Technologist: Jenny Frye RDCS Age: 75 Ht (in): 62 Wt (lb): 232 Gender: F Exam Location: [facility] Echo Indications: Bacteremia, + Blood cultures, Pulmonary HTN, COPD, Shortness of breath, Edema, unspecified, Chronic kidney disease, unspecified BP: 115 / 50 HR: 67 Rhythm: Atrial fibrillation Technical Quality: Good IMPRESSIONS Mild left ventricular hypertrophy. Left ventricular ejection fraction is estimated at 65 %. Severely increased left atrial size. Mild mitral valve regurgitation. Aortic valve sclerosis without stenosis or regurgitation. Ktph-ls-datatnow tricuspid valve regurgitation. Tricuspid regurgitation velocities suggest a PAP of 52 mmHg. Trace pulmonary valve regurgitation. MEASUREMENTS (Male / Female) Normal Values 2D ECHO LV Diastolic Diameter PLAX 4.6 cm 4.2 - 5.9 / 3.9 - 5.3 cm LV Systolic Diameter PLAX 2.4 cm LV Fractional Shortening PLAX 48.4 % IVS Diastolic Thickness 1.1 cm 0.6 - 1.0 / 0.6 - 0.9 cm LVPW Diastolic Thickness 1.3 cm 0.6 - 1.0 / 0.6 - 0.9 cm RV Internal Dim ED PLAX 3.5 cm Aortic Root Diameter 3.2 cm LA Systolic Diameter LX 5.2 cm 3.0 - 4.0 / 2.7 - 3.8 cm DOPPLER TR Peak Velocity 324.0 cm/s TR Peak Gradient 42.0 mmHg FINDINGS Left Ventricle Normal left ventricular cavity size. Mild left ventricular hypertrophy. Left ventricular ejection fraction is estimated at 65 %. Right Ventricle Mildly increased right ventricular size. Catheter/pacemaker wire visualized in the right ventricle. Right Atrium The right atrium is mildly enlarged. Catheter/pacemaker wire in the right atrial cavity. Left Atrium Severely increased left atrial size. Mitral Valve Morphologically normal mitral valve. Mild mitral annular calcification. Mild mitral valve regurgitation. Aortic Valve Aortic valve sclerosis without stenosis or regurgitation. Tricuspid Valve Morphologically normal tricuspid valve. Oedi-fj-[id number] tricuspid valve regurgitation. Tricuspid regurgitation velocities suggest a PAP of 52 mmHg. Pulmonic Valve Morphologically normal pulmonic valve. Trace pulmonary valve regurgitation. Pericardium Normal pericardium without effusion. Aorta Normal ascending aorta dimension. Clark Roach MD (Electronically Signed) Final Date: 26 September 2016 21:17
== END 2016-09-26 17:10 | DRG 871 ==
LOC: EDBD → EDUNIT# → N.ED 06:00 → SUATTDRO 08:29 → N.EDINP 08:29 → N.5E 10:55
PROVIDERS: ADMIT Internal Medicine; ATTEND Internal Medicine